=== PATIENT | female | born 1960 | race Caucasian/White ===

== ENCOUNTER 2017-11-24 15:32 | Emergency (ER) | payer OTHER ==
[2017-11-24 16:07] LABS: Absolute Lymphocytes (CBC) 2.7 K/uL (0.7-4.9); Absolute Monocytes 0.4 K/uL (0.1-1.3); Absolute Neutrophil 5.3 K/uL (1.8-8.0); Basophils % 0.8 % (0-1.3); Eosinophils % 1.7 % (0-4.4); Hematocrit 41.2 % (36.0-45.0); Lymphocytes % 31.2 % (15.3-44.8); MCV 87.8 fL (80-100); MPV 8.6 fL (7.6-11.3); Monocytes % 5.1 % (3.3-12.3)
[2017-11-24] MEDS ORDERED: BISACODYL 10 MG RECTAL SUPP ONE (16:17)
[2017-11-24 16:29] LABS: Albumin 3.8 g/dL (3.4-5.0); Bilirubin Direct 0.2 mg/dL (0-0.2); Bilirubin Total 0.9 mg/dL (0.2-1.0); Potassium 3.8 mmol/L (3.5-5.1); Protein, Total 7.9 g/dL (6.4-8.2)
--- NOTE | 2017-11-24 16:35 | RAD REPORT ---
EXAM DESCRIPTION: CT - Stone Protocol - 11/24/2017 4:22 pm CLINICAL HISTORY: Abdominal pain. Epigastric pain COMPARISON: None. TECHNIQUE: Computed axial tomography of the abdomen pelvis was obtained without oral or IV contrast. Lack of IV and oral contrast limits evaluation of solid organs, bowel, and vessels. Coronal reformat aung images were obtained and reviewed. All CT scans are performed using dose optimization technique as appropriate and may include automated exposure control or mA/KV adjustment according to patient size. FINDINGS: A renal calculus is not seen. An ureteral calculus is not noted. A bladder calculus is not present. The liver has a diminished attenuation consistent with fatty infiltration. Liver is borderline enlarg ed Spleen, pancreas and right adrenal gland appear grossly normal. 28 millimeter low-density lesion is p resent within the left adrenal gland probably representing an adenoma. There is no evidence of diverticulitis. The appendix appears normal A moderate amount of stool is present throughout the colon. A tiny umbilical hernia contains fat IMPRESSION: Negative for a genitourinary calculus Moderate amount of stool throughout the colon
[2017-11-24] MEDS ORDERED: MAGNE/ALUM HYDROXD 30 ML UCUP ONE (17:01)
--- NOTE | 2017-11-24 17:11 | EDPHYS ---
Physician Documentation [facility] Name: Estefany Beard Age: 57 yrs Sex: Female : 1960 Arrival Date: 11/24/2017 Time: 15:33 Bed 18 Private MD: Hero Jacobsen ED Physician Allen Rollins HPI: 11/24 16:14 This 57 yrs old Female presents to ER via Wheelchair with complaints of gs Constipation. 16:14 The patient presents with abdominal pain in the epigastric area. Onset: The gs symptoms/episode began/occurred acutely, after takink dulcolax pills. The symptoms do not radiate. Associated signs and symptoms: Pertinent positives: constipation, severe no bm 1 week. The symptoms are described as crampy. Severity of pain: At its worst the pain was moderate in the emergency department the pain is unchanged. The patient has experienced similar episodes in the past, several times. Historical: - Allergies: 15:37 No Known Allergies; aj1 - Home Meds: 15:37 losartan oral oral [Active]; Lexapro Oral [Active]; Citracal Oral [Active]; aj1 - PMHx: 15:37 Diabetes - NIDDM; Hypertension; aj1 - Immunization history:: Flu vaccine is not up to date. - Social history:: Smoking status: Patient/guardian denies using tobacco. - Ebola Screening: : Patient denies travel to an Ebola-affected area in the 21 days before illness onset. ROS: 16:14 All other systems are negative. gs Exam: 16:14 Head/Face: Normocephalic, atraumatic. Eyes: Pupils equal round and reactive to light, gs extra-ocular motions intact. Lids and lashes normal. Conjunctiva and sclera are non-icteric and not injected. Cornea within normal limits. Periorbital areas with no swelling, redness, or edema. ENT: Nares patent. No nasal discharge, no septal abnormalities noted. Tympanic membranes are normal and external auditory canals are clear. Oropharynx with no redness, swelling, or masses, exudates, or evidence of obstruction, uvula midline. Mucous membranes moist. Neck: Trachea midline, no thyromegaly or masses palpated, and no cervical lymphadenopathy. Supple, full range of motion without nuchal rigidity, or vertebral point tenderness. No Meningismus. Chest/axilla: Normal chest wall appearance and motion. Nontender with no deformity. No lesions are appreciated. 16:14 Cardiovascular: Regular rate and rhythm with a normal S1 and S2. No gallops, murmurs, or rubs. Normal PMI, no JVD. No pulse deficits. Respiratory: Lungs have equal breath sounds bilaterally, clear to auscultation and percussion. No rales, rhonchi or wheezes noted. No increased work of breathing, no retractions or nasal flaring. Back: No spinal tenderness. No costovertebral tenderness. Full range of motion. Skin: Warm, dry with normal turgor. Normal color with no rashes, no lesions, and no evidence of cellulitis. MS/ Extremity: Pulses equal, no cyanosis. Neurovascular intact. Full, normal range of motion. Neuro: Awake and alert, GCS 15, oriented to person, place, time, and situation. Cranial nerves II-XII grossly intact. Motor strength 5/5 in all extremities. Sensory grossly intact. Cerebellar exam normal. Normal gait. 16:14 Constitutional: The patient appears alert, awake. 16:14 Constitutional: The patient appears uncomfortable. 16:14 Abdomen/GI: Palpation: moderate abdominal tenderness, in the epigastric area. 16:14 ECG was reviewed by the Attending Physician. Vital Signs: 15:37 BP 195 / 90; Pulse 91; Resp 24; Temp 97.1; Pulse Ox 98% on R/A; Weight 90.72 kg (R); aj1 Height 5 ft. 1 in. (154.94 cm) (R); Pain 10/10; 16:02 BP 165 / 78; Pulse 82; Resp 20; Pulse Ox 95% ; sv 16:49 BP 185 / 82; Pulse 83; Resp 21; Pulse Ox 95% ; sv 15:37 Body Mass Index 37.79 (90.72 kg, 154.94 cm) aj1 MDM: 15:42 Patient medically screened. 16:14 Differential diagnosis: bowel obstruction, coronary artery disease, diverticulitis, gs gastritis, gastroesophageal reflux disease. Data reviewed: vital signs, nurses notes. 17:10 Response to treatment: the patient's symptoms have markedly improved after treatment, and as a result, I will discharge patient. 11/24 15:46 Order name: Basic Metabolic Panel; Complete Time: 16:34 11/24 15:46 Order name: CBC with Diff; Complete Time: 16:34 11/24 15:46 Order name: Hepatic Function; Complete Time: 16:34 11/24 15:46 Order name: Lipase; Complete Time: 16:34 11/24 15:46 Order name: CT Stone Protocol; Complete Time: 16:48 11/24 15:46 Order name: IV Saline Lock; Complete Time: 16:01 11/24 15:46 Order name: Labs collected and sent; Complete Time: 16:01 11/24 15:46 Order name: EKG; Complete Time: 15:47 11/24 15:46 Order name: EKG - Nurse/Tech; Complete Time: 16:15 gs EC:14 Rate is 79 beats/min. Rhythm is regular. VT interval is normal. QRS interval is normal. gs T waves are Normal. No ST changes noted. Clinical impression: NSR w/ Non-specific ST/T Changes. Interpreted by me. Administered Medications: 16:38 Drug: Dulcolax Suppository 10 mg Route: VT; sv 17:35 Follow up: Response: No adverse reaction sv 17:00 Drug: Maalox Suspension (200 mg-200 mg-20 mg/5 mL) 30 ml Route: PO; sv 17:35 Follow up: Response: No adverse reaction sv Disposition: 11/24/17 17:11 Discharged to Home. Impression: Generalized abdominal pain, Constipation. - Condition is Stable. - Discharge Instructions: Abdominal Pain, Adult, Constipation, Adult, [id number]. - Prescriptions for Miralax 17 gram/dose Oral - take 1 packet by ORAL route once daily dilute powder in 8 ounces of water or juice; 1 bottle. - Medication Reconciliation Form, Thank You Letter, Antibiotic Education, Prescription Opioid Use form. - Follow up: Private Physician; When: 2 - 3 days; Reason: Re-evaluation by your physician. Signatures: Dispatcher [employer] Delmy Greene RN RN ajConcha Velasquez RN RN sv Allen Rollins MD MD gs Corrections: (The following items were deleted from the chart) 17:35 17:11 11/24/2017 17:11 Discharged to Home. Impression: Generalized abdominal pain; sv Constipation. Condition is Stable. Forms are Medication Reconciliation Form, Thank You Letter, Antibiotic Education, Prescription Opioid Use. Follow up: Private Physician; When: 2 - 3 days; Reason: Re-evaluation by your physician. gs
--- NOTE | 2017-11-24 17:11 | ER ---
Nurse's Notes [facility] Name: Estefany Beard Age: 57 yrs Sex: Female : 1960 Arrival Date: 11/24/2017 Time: 15:33 Bed 18 Private MD: Hero Jacobsen Diagnosis: Generalized abdominal pain;Constipation Presentation: 11/24 15:35 Presenting complaint: Patient states: Severe epigastric for the past 15 minutes. aj1 Patient reports that she is constipated, and has not had a bowel movement for the past week. Transition of care: patient was not received from another setting of care. Onset of symptoms was November 24, 2017. Risk Assessment: Do you want to hurt yourself or someone else? Patient reports no desire to harm self or others. Initial Sepsis Screen: Does the patient meet any 2 criteria? No. Patient's initial sepsis screen is negative. Does the patient have a suspected source of infection? No. Patient's initial sepsis screen is negative. Care prior to arrival: None. 15:35 Method Of Arrival: Wheelchair aj1 15:35 Acuity: JACE 3 aj1 Triage Assessment: 15:37 General: Appears uncomfortable, Behavior is anxious, crying, restless. Pain: Complains aj1 of pain in epigastric area Pain currently is 10 out of 10 on a pain scale. Neuro: Level of Consciousness is awake, alert, obeys commands. Cardiovascular: Patient's skin is warm and dry. GI: Reports upper abdominal pain. Historical: - Allergies: 15:37 No Known Allergies; aj1 - Home Meds: 15:37 losartan oral oral [Active]; Lexapro Oral [Active]; Citracal Oral [Active]; aj1 - PMHx: 15:37 Diabetes - NIDDM; Hypertension; aj1 - Immunization history:: Flu vaccine is not up to date. - Social history:: Smoking status: Patient/guardian denies using tobacco. - Ebola Screening: : Patient denies travel to an Ebola-affected area in the 21 days before illness onset. Screenin:55 Abuse screen: Denies threats or abuse. Denies injuries from another. Nutritional sv screening: No deficits noted. Tuberculosis screening: No symptoms or risk factors identified. Fall Risk None identified. Assessment: 15:55 General: Appears in no apparent distress. uncomfortable, well developed, Behavior is sv calm, cooperative, appropriate for age. Pain: Complains of pain in abdomen Pain currently is 10 out of 10 on a pain scale. Is continuous. Neuro: Level of Consciousness is awake, alert, obeys commands, Oriented to person, place, time, situation, Moves all extremities. Full function Gait is steady. Respiratory: Respiratory effort is even, unlabored, Respiratory pattern is regular, symmetrical. GI: Abdomen is tender to palpation X 4 quads. Reports constipation, since 1 week. Derm: Skin is pink, warm \T\ dry. 16:38 Reassessment: Patient appears in no apparent distress at this time. No changes from sv previously documented assessment. Patient and/or family updated on plan of care and expected duration. Pain level reassessed. Patient is alert, oriented x 3, equal unlabored respirations, skin warm/dry/pink. 17:31 Reassessment: Patient appears in no apparent distress at this time. No changes from sv previously documented assessment. Patient and/or family updated on plan of care and expected duration. Pain level reassessed. Patient is alert, oriented x 3, equal unlabored respirations, skin warm/dry/pink. Vital Signs: 15:37 BP 195 / 90; Pulse 91; Resp 24; Temp 97.1; Pulse Ox 98% on R/A; Weight 90.72 kg (R); aj1 Height 5 ft. 1 in. (154.94 cm) (R); Pain 10/10; 16:02 BP 165 / 78; Pulse 82; Resp 20; Pulse Ox 95% ; sv 16:49 BP 185 / 82; Pulse 83; Resp 21; Pulse Ox 95% ; sv 15:37 Body Mass Index 37.79 (90.72 kg, 154.94 cm) aj1 ED Course: 13:55 Patient has correct armband on for positive identification. Placed in gown. Bed in low sv position. Call light in reach. Adult w/ patient. Pulse ox on. NIBP on. Door closed. Warm blanket given. Head of bed elevated. 15:33 Patient arrived in ED. sb2 15:33 Hero Jacobsen MD is Private Physician. sb2 15:36 Triage completed. aj1 15:37 Arm band placed on Patient placed in an exam room. aj1 15:39 Allen Rollins MD is Attending Physician. gs 15:40 Concha Thomas, RN is Primary Nurse. sv 15:55 Initial lab(s) drawn, by me, sent to lab. Inserted saline lock: 20 gauge in left sv antecubital area, using aseptic technique. Blood collected. Flushed left antecubital with 5 ml normal saline. 16:12 EKG done, by power technician. reviewed by Allen Rollins MD. sm3 16:13 Patient moved to ME via wheelchair. hi 16:22 CT completed. Patient tolerated procedure well. Patient moved back from ME. nj 16:22 CT Stone Protocol In Process Unspecified. EDMS 17:31 No provider procedures requiring assistance completed. IV discontinued, intact, sv bleeding controlled, No redness/swelling at site. Pressure dressing applied. Administered Medications: 16:38 Drug: Dulcolax Suppository 10 mg Route: MA; sv 17:35 Follow up: Response: No adverse reaction sv 17:00 Drug: Maalox Suspension (200 mg-200 mg-20 mg/5 mL) 30 ml Route: PO; sv 17:35 Follow up: Response: No adverse reaction sv Outcome: 17:11 Discharge ordered by . 17:31 Discharged to home ambulatory, with family. sv 17:31 Condition: stable 17:31 Discharge instructions given to patient, Instructed on discharge instructions, follow up and referral plans. medication usage, Demonstrated understanding of instructions, follow-up care, medications, Prescriptions given X 1. 17:35 Patient left the ED. sv Signatures: Dispatcher [employer] EDCT Delmy Sargent RN RN aj1 Concha Thomas, Shalom Og RN, Gregory, MD MD Estefany Goldstein Yvrose Posey sm3
--- NOTE | 2017-11-24 17:37 | EKG ---
Test Date: 2017-11-24 Test Time: 16:09:15 Processing Analyst: YVETTE MEASUREMENT RESULTS: Intervals: Rate: 79 HI: 184 QRSD: 88 QT: 380 QTc: 435 [place]: P: 32 HI: 184 QRS: 9 T: 11 INTERPRETIVE STATEMENTS: Normal sinus rhythm Normal ECG Compared to ECG 05/15/2008 16:48:17 no significant change from previous ECG Electronically Signed On 11-24-17 17:36:23 CDT by Tej Vogt
== END 2017-11-24 17:35 | disposition home or self-care (01) ==
LOC: ER 15:32
DX: K59.00 Constipation, unspecified (principal); I10 Essential (primary) hypertension; E11.9 Type 2 diabetes mellitus without complications
CPT/HCPCS: 36415; 74176; 76377; 80048; 80076; 83690; 85025; 93005

== ENCOUNTER 2021-06-07 21:59 | Emergency (ER) | payer OTHER ==
[2021-06-07] MEDS ORDERED: METHYLPREDNISOLONE 125 MG INJ ONE (23:31)
[2021-06-07] MEDS ORDERED: METHOCARBAMOL 1,000 MG/10 ML VIAL IV ONE (23:32)
[2021-06-07] MEDS ORDERED: KETOROLAC 30 MG/ML INJ ONE (23:32)
[2021-06-07] MEDS ORDERED: HYDROMORPHONE HCL 2 MG/ML inj ONE (23:32)
[2021-06-07] MEDS ORDERED: NA CHLORIDE 0.9% 200 ML IV ONE (23:33)
[2021-06-07] MEDS ORDERED: ONDANSETRON 4 MG/2 ML VIAL ONE (23:33)
[2021-06-08 00:35] LABS: Absolute Lymphocytes (CBC) 2.7 K/uL (0.7-4.9); Hematocrit 38.1 % (36.0-45.0); Lymphocytes % 22.5 % (15.3-44.8); MPV 7.8 fL (7.6-11.3); RBC Red Blood Cell Count 4.53 M/uL (3.86-4.86)
[2021-06-08 01:00] LABS: Albumin 3.3 g/dL (3.4-5.0); Bilirubin Total 0.7 mg/dL (0.2-1.0)
[2021-06-08 01:01] LABS: Potassium 4.1 mmol/L (3.5-5.1)
--- NOTE | 2021-06-08 03:45 | ER ---
Nurse's Notes [facility] Name: Estefany Beard Age: 60 yrs Sex: Female : 1960 Arrival Date: 06/07/2021 Time: 22:13 Bed 7 Private MD: Diagnosis: Pain in right hip Presentation: 06/07 23:49 Chief complaint: Patient states: Right hip pain x 3 weeks that radiates towards back. al4 patient has seen a physician prior and has plans to see a specialist. pain got worse tonight. Coronavirus screen: Vaccine status: Patient reports receiving the 2nd dose of the covid vaccine. Ebola Screen: No symptoms or risks identified at this time. Initial Sepsis Screen: Does the patient meet any 2 criteria? No. Patient's initial sepsis screen is negative. Does the patient have a suspected source of infection? No. Patient's initial sepsis screen is negative. Risk Assessment: Do you want to hurt yourself or someone else? Patient reports no desire to harm self or others. Onset of symptoms was June 08, 2021. 23:49 Method Of Arrival: EMS al4 23:49 Acuity: JACE 3 al4 Historical: - Allergies: 06/08 02:00 No Known Allergies; al4 - Immunization history:: Adult Immunizations up to date, Client reports receiving the 2nd dose of the Covid vaccine, Flu vaccine is up to date. - Social history:: Smoking status: Patient denies any tobacco usage or history of. Screenin:26 Abuse screen: Denies threats or abuse. Nutritional screening: No deficits noted. al4 Tuberculosis screening: No symptoms or risk factors identified. Fall Risk No fall in past 12 months (0 pts). IV access (20 points). Ambulatory Aid- None/Bed Rest/Nurse Assist (0 pts). Gait- Normal/Bed Rest/Wheelchair (0 pts) Mental Status- Oriented to own ability (0 pts). Total Gudino Fall Scale indicates No Risk (0-24 pts). Assessment: 06/07 23:49 General: Appears uncomfortable, Behavior is calm, cooperative. Pain: Complains of pain al4 in Right Hip Pain currently is 10 out of 10 on a pain scale. Neuro: Level of Consciousness is awake, alert, obeys commands, Oriented to person, place, time, situation. Cardiovascular: Capillary refill < 3 seconds Patient's skin is warm and dry. Pulses are 2+ in right dorsalis pedis artery and left dorsalis pedis artery. Respiratory: Airway is patent Respiratory effort is unlabored, Respiratory pattern is regular. Musculoskeletal: Reports numbness in right martinez since 1 week. 23:57 Reassessment: clarified with MD Diane about giving methocarbamol and Dilaudid at the al4 same time. Compatibility is unknown. desulfurizer hand looked up drug compatibility as well. Will not run together. 06/08 01:07 Reassessment: Patient appears in no apparent distress at this time. Patient states al4 symptoms have not improved. 01:40 Reassessment: Patient appears in no apparent distress at this time. Patient states al4 symptoms have improved. patient offered more pain medication by . patient responded "I am okay right now". 02:05 Pain: Pain currently is 4 out of 10 on a pain scale. al4 02:05 Reassessment: Patient is alert, oriented x 3, equal unlabored respirations, skin al4 warm/dry/pink. 04:01 Reassessment: Patient appears in no apparent distress at this time. Patient is alert, al4 oriented x 3, equal unlabored respirations, skin warm/dry/pink. 04:04 Reassessment: discharge instructions, prescriptions, and IV removed by DORA Carbajal. al4 Vital Signs: 06/07 23:30 BP 182 / 76; Pulse 82; Resp 17 S; Pulse Ox 97% on R/A; al4 06/08 00:00 BP 169 / 73; Pulse 83; Resp 17; Pulse Ox 96% ; Pain 10/10; al4 01:30 BP 163 / 78; Pulse 83; Resp 18; Pulse Ox 97% ; Pain 8/10; al4 01:45 BP 161 / 79; Pulse 85; Resp 18; Pulse Ox 96% on R/A; Pain 7/10; al4 02:45 BP 153 / 71; Pulse 86; Resp 18; Pulse Ox 96% ; al4 03:45 BP 156 / 69; Pulse 86; Resp 17 S; Pulse Ox 97% on R/A; al4 ED Course: 06/07 22:13 Patient arrived in ED. vc1 22:13 Tom Diane MD is Attending Physician. kdr 23:17 Alex Qureshi is Primary Nurse. al4 23:55 Maintain EMS IV. Dressing intact. Good blood return noted. Site clean \\T\\ dry. Gauge \\T\\ al 4 site: 20G L Wrist. 06/08 00:15 Inserted saline lock: 20 gauge in right forearm, using aseptic technique. Blood sm5 collected. 00:24 CBC with Diff Sent. al4 00:24 Comprehensive Metabolic Panel Sent. al4 00:26 Bed in low position. Call light in reach. Side rails up X2. al4 00:26 Arm band placed on. al4 00:51 Hip Right W Con In Process Unspecified. EDMS 02:00 Triage completed. al4 04:03 No provider procedures requiring assistance completed. IV discontinued, intact, al4 bleeding controlled, No redness/swelling at site. Pressure dressing applied, by DORA Carbajal. Administered Medications: 06/07 22:52 CANCELLED (Physician Discretion): Compazine (prochlorperazine) 5 mg IVP once vc1 23:34 Drug: Ketorolac 15 mg Route: IVP; Site: left wrist; al4 06/08 00:30 Follow up: Response: No adverse reaction al4 06/07 23:36 Drug: SOLU-Medrol (methylPrednisoLONE) 125 mg Route: IVP; Site: left wrist; al4 06/08 00:30 Follow up: Response: No adverse reaction al4 06/07 23:38 Drug: Zofran (Ondansetron) 4 mg Route: IVP; Site: left wrist; al4 06/08 00:30 Follow up: Response: No adverse reaction al4 06/07 23:44 Drug: Robaxin (methocarbamol) 1 grams Route: IVPB; Infused Over: 1 hrs; Site: left al4 wrist; 06/08 01:06 Follow up: Response: No adverse reaction; IV Status: Completed infusion; IV Intake: al4 100ml 01:03 Drug: Dilaudid (HYDROmorphone) 2 mg Route: IVP; Site: right forearm; al4 02:04 Follow up: Response: No adverse reaction; Marked relief of symptoms; Pain is decreased; al4 RASS: Alert and Calm (0) Intake: 01:06 IV: 100ml; Total: 100ml. al4 Outcome: 03:45 Discharge ordered by . kdr 04:03 Discharged to home via wheelchair, with family. al4 04:03 Condition: stable 04:03 Discharge instructions given to patient, family, Instructed on discharge instructions, follow up and referral plans. medication usage, Demonstrated understanding of instructions, follow-up care, medications. 04:04 Patient left the ED. al4 Signatures: Dispatcher [employer] EDMS Tom Diane MD MD kdr Ledbetter, Alexis al4 Li Swan RN RN sm5 Libby Bowles RN RN vc1 Corrections: (The following items were deleted from the chart) 00:26 06/07 23:49 Cardiovascular: Capillary refill < 3 seconds Patient's skin is warm and al4 dry. al4 06/08 00:26 06/07 23:49 Musculoskeletal: Circulation, motion, and sensation intact. al4 al4
--- NOTE | 2021-06-08 03:45 | EDPHYS ---
Physician Documentation [facility] Name: Estefany Beard Age: 60 yrs Sex: Female : 1960 Arrival Date: 06/07/2021 Time: 22:13 Bed 7 Private MD: ED Physician Tom Diane HPI: 06/07 23:55 This 60 yrs old Female presents to ER via Unassigned with complaints of Right hip pain. kdr 23:55 The patient or guardian reports decreased range of motion, pain. that occurred at home, kdr sustained from lifting or pulling, Patient was in the shower when she lifted her leg and had acute onset of pain in the, There is no obvious deformity, The patient is able to ambulate with assistance. The patient is able to bear partial body weight. There is no radiation of the patient's discomfort. The complaints affect the right hip and right leg. Onset: The symptoms/episode began/occurred suddenly, just prior to arrival. Modifying factors: The symptoms are alleviated by nothing, the symptoms are aggravated by nothing. Associated signs and symptoms: Loss of consciousness: the patient experienced no loss of consciousness. Severity of symptoms: At their worst the symptoms were moderate, severe, incapacitating, just prior to arrival, in the emergency department the symptoms are unchanged. The patient has experienced similar episodes in the past, a few times. The patient has not recently seen a physician. Historical: - Allergies: 06/08 02:00 No Known Allergies; al4 - Immunization history:: Adult Immunizations up to date, Client reports receiving the 2nd dose of the Covid vaccine, Flu vaccine is up to date. - Social history:: Smoking status: Patient denies any tobacco usage or history of. ROS: 06/07 23:55 Constitutional: Negative for fever, chills, and weight loss, Eyes: Negative for injury, kdr pain, redness, and discharge, Neck: Negative for injury, pain, and swelling, Cardiovascular: Negative for chest pain, palpitations, and edema, Respiratory: Negative for shortness of breath, cough, wheezing, and pleuritic chest pain, Abdomen/GI: Negative for abdominal pain, nausea, vomiting, diarrhea, and constipation, Back: Negative for injury and pain, : Negative for injury, bleeding, discharge, and swelling, Skin: Negative for injury, rash, and discoloration, Neuro: Negative for headache, weakness, numbness, tingling, and seizure activity. Psych: Negative for depression, anxiety, suicide ideation, homicidal ideation, and hallucinations, Allergy/Immunology: Negative for hives, rash, and allergies, Endocrine: Negative for neck swelling, polydipsia, polyuria, polyphagia, and marked weight changes, Hematologic/Lymphatic: Negative for swollen nodes, abnormal bleeding, and unusual bruising. MS/extremity: Positive for decreased range of motion, pain, tenderness, of the right hip. Exam: 23:55 Constitutional: This is a well developed, well nourished patient who is awake, alert, kdr and in mild distress. Head/Face: Normocephalic, atraumatic. Eyes: Pupils equal round and reactive to light, extra-ocular motions intact. Lids and lashes normal. Conjunctiva and sclera are non-icteric and not injected. Cornea within normal limits. Periorbital areas with no swelling, redness, or edema. Neck: Trachea midline, no thyromegaly or masses palpated, and no cervical lymphadenopathy. Supple, full range of motion without nuchal rigidity, or vertebral point tenderness. No Meningismus. Chest/axilla: Normal chest wall appearance and motion. Nontender with no deformity. No lesions are appreciated. Cardiovascular: Regular rate and rhythm with a normal S1 and S2. No gallops, murmurs, or rubs. Normal PMI, no JVD. No pulse deficits. Respiratory: Lungs have equal breath sounds bilaterally, clear to auscultation and percussion. No rales, rhonchi or wheezes noted. No increased work of breathing, no retractions or nasal flaring. Abdomen/GI: Soft, non-tender, with normal bowel sounds. No distension or tympany. No guarding or rebound. No evidence of tenderness throughout. Back: No spinal tenderness. No costovertebral tenderness. Full range of motion. Skin: Warm, dry with normal turgor. Normal color with no rashes, no lesions, and no evidence of cellulitis. Neuro: Awake and alert, GCS 15, oriented to person, place, time, and situation. Cranial nerves II-XII grossly intact. Motor strength 5/5 in all extremities. Sensory grossly intact. Cerebellar exam normal. Normal gait. Psych: Awake, alert, with orientation to person, place and time. Behavior, mood, and affect are within normal limits. 23:55 Musculoskeletal/extremity: Extremities: grossly normal except: noted in the right hip: pain. Vital Signs: 23:30 BP 182 / 76; Pulse 82; Resp 17 S; Pulse Ox 97% on R/A; al4 06/08 00:00 BP 169 / 73; Pulse 83; Resp 17; Pulse Ox 96% ; Pain 10/10; al4 01:30 BP 163 / 78; Pulse 83; Resp 18; Pulse Ox 97% ; Pain 8/10; al4 01:45 BP 161 / 79; Pulse 85; Resp 18; Pulse Ox 96% on R/A; Pain 7/10; al4 02:45 BP 153 / 71; Pulse 86; Resp 18; Pulse Ox 96% ; al4 03:45 BP 156 / 69; Pulse 86; Resp 17 S; Pulse Ox 97% on R/A; al4 MDM: 06/07 23:55 Data reviewed: vital signs, nurses notes, lab test result(s), radiologic studies. kdr Counseling: I had a detailed discussion with the patient and/or guardian regarding: the historical points, exam findings, and any diagnostic results supporting the discharge/admit diagnosis, lab results, radiology results. 06/08 03:45 Patient medically screened. kdr 06/07 22:50 Order name: CBC with Diff; Complete Time: 00:57 kdr 06/07 22:51 Order name: Comprehensive Metabolic Panel; Complete Time: 01:51 kdr 06/07 22:53 Order name: Hip Right W Con EDMS 06/08 00:59 Order name: CREATININE WHOLE BLOOD; Complete Time: 01:51 EDMS Administered Medications: 06/07 22:52 CANCELLED (Physician Discretion): Compazine (prochlorperazine) 5 mg IVP once vc1 23:34 Drug: Ketorolac 15 mg Route: IVP; Site: left wrist; al4 06/08 00:30 Follow up: Response: No adverse reaction al4 06/07 23:36 Drug: SOLU-Medrol (methylPrednisoLONE) 125 mg Route: IVP; Site: left wrist; al4 06/08 00:30 Follow up: Response: No adverse reaction al4 06/07 23:38 Drug: Zofran (Ondansetron) 4 mg Route: IVP; Site: left wrist; al4 06/08 00:30 Follow up: Response: No adverse reaction al4 06/07 23:44 Drug: Robaxin (methocarbamol) 1 grams Route: IVPB; Infused Over: 1 hrs; Site: left al4 wrist; 06/08 01:06 Follow up: Response: No adverse reaction; IV Status: Completed infusion; IV Intake: al4 100ml 01:03 Drug: Dilaudid (HYDROmorphone) 2 mg Route: IVP; Site: right forearm; al4 02:04 Follow up: Response: No adverse reaction; Marked relief of symptoms; Pain is decreased; al4 RASS: Alert and Calm (0) Disposition Summary: 06/08/21 03:45 Discharge Ordered Location: Home kdr Problem: an acute exacerbation kdr Symptoms: have improved kdr Condition: Stable kdr Diagnosis - Pain in right hip kdr Followup: kdr - With: Private Physician - When: 2 - 3 days - Reason: If symptoms return, Further diagnostic work-up, Recheck today's complaints, Continuance of care, Re-evaluation by your physician Discharge Instructions: - Discharge Summary Sheet kdr - Joint Pain kdr - Musculoskeletal Pain kdr - Hip Pain kdr Forms: - Medication Reconciliation Form kdr - Thank You Letter kdr - Prescription Opioid Use kdr Prescriptions: - Ibuprofen 600 mg Oral Tablet - take 1 tablet by ORAL route every 6 hours As needed take with food; 30 tablet; kdr Refills: 0, Product Selection Permitted - Zofran 4 mg Oral Tablet - take 1 tablet by ORAL route every 4-6 hours As needed; 20 tablet; Refills: 0, kdr Product Selection Permitted - Tylenol-Codeine #3 300 mg-30 mg Oral - take 2 tablet by ORAL route every 4-6 hours As needed; 20 tablet; Refills: 0, kdr Product Selection Permitted - Medrol (Laith) 4 mg Oral Tablets, Dose Pack - take 1 tablet by ORAL route as directed - follow package instructions; 1 kdr packet; Refills: 0, Product Selection Permitted Signatures: Dispatcher [employer] Tom Hyde MD MD kdr Alex Qureshi al4 Carrol Preito PA PA sb3 Libby Bowles RN vc1 Corrections: (The following items were deleted from the chart) 06/07 22:52 22:50 Compazine (prochlorperazine) 5 mg IVP once ordered. kdr vc1
[2021-06-08 04:21] VITALS: BP 156/69; O2SAT 97
--- NOTE | 2021-06-09 08:55 | RAD REPORT ---
EXAM DESCRIPTION: CT - Hip Right W Con - 06/08/2021 6:52 am CLINICAL HISTORY: The patient is 60 years old and is Female; right hip pain TECHNIQUE: Axial computed tomography images of the right hip with intravenous contrast. Sagittal a nd coronal reformatted images were created and reviewed. This CT exam was performed using one or mo re of the following dose reduction techniques: automated exposure control, adjustment of the mA and /or kV according to patient size, and/or use of iterative reconstruction technique. COMPARISON: No relevant prior studies available. FINDINGS: BONES/JOINTS: Heterotopic bone formation along the right greater trochanter is noted. Th e femoral head is well located. The right SI joint and pubic symphysis are intact without evidence of diastases. The bone mineralization and contour is normal. There is no evidence of fracture of the vi sualized bones of the right hip. There is no dislocation. SOFT TISSUES: Unremarkable. No abnormal contrast enhancement. IMPRESSION: No acute findings in the right hip. Electronically signed by: Juliana Whitney MD 06/08/2021 1:33 AM CDT Due to temporary technical issues with the PACS/Fluency reporting system, reports are being signed by the in house radiologists without review as a courtesy to insure prompt reporting. The interpreting radiologist is fully responsible for the content of the report.
== END 2021-06-08 04:04 | disposition home or self-care (01) ==
LOC: ER 21:59
DX: M25.551 Pain in right hip (principal)
CPT/HCPCS: 85025; 36415; 82565; 80053; 73701; 99284; Q9967; J1170; J2930; J2405; J2800

== ENCOUNTER 2021-07-17 09:35 | Emergency (ER) | payer OTHER ==
--- OUTSIDE RECORDS SUMMARY | 2021-07-17 09:39 | XMS REPORT | Continuity of Care Document ---
:1960 Author Organization [facility] t Address [address] [place] [address] Care Team Providers Name Role Phone Jose Yao Attending Clinician Unavailable Fely Montes De Oca Attending Clinician Unavailable Ibrahima Attending Clinician Unavailable Jose Yao Admitting Clinician Unavailable Fely Montes De Oca Admitting Clinician Unavailable Ibrahima Admitting Clinician Unavailable Payers Payer Name Policy Type Policy Number Effective Date Expiration Date Yael PHILLIPS (POS) [id number] 2002 00:00:00 Problems This patient has no known problems. Allergies, Adverse Reactions, Alerts Allergy Allergy Status Severity Reaction(s) Onset Inactive Treating Comm ents Source Name Type Date Date Clinician No Known DA Active U [facility] 18 Clear Allergie 00:00: Zuniga s 00 [facility] latex DA Active MA RASH [facility] 5-18 Clear 00:00: Zuniga 00 [facility] No Known DA Active [facility] [place] All[facility]ie 00:[facility]: [facility] DA Active [facility]- [place] 00:00: [facility]ope [facility] Medications This patient has no known medications. Procedures This patient has no known procedures. Encounters Start End Encounter Admission Attending Care Care Encounter Source Date/Time Date/Time Type Type Clinicians Facility Department ID 2021-07-03 [id number] 11:19:00 [facility] [place] [facility] 2021-06-09 Outpatient Melody Montes De Oca HCATO [id number] [facility] 13:40:31 38 [place] [facility] 2021-07-16 2021-07-16 Outpatient Reji AOYVETTE AOSM [id number] Francisca 02:14:00 02:14:00 _Nitesh [id number] [facility] 2021-07-10 2021-07-11 Outpatient KRISTIN Whittaker OBSE [id number] [facility] 08:31:00 14:01:00 [facility] [place] [facility] 2021-07-10 2021-07-11 Outpatient KRISTIN Whittaker OBSE Y00 [id number] [facility] 08:31:00 14:01:00 Howard 74 [place] [facility] 2021-07-02 2021-07-02 Outpatient VANNA YaoCL LABO G00 [id number] [facility] 15:39:00 15:39:00 Howard 19 [facility] 2021-06-25 2021-06-25 Outpatient KRISTIN Whittaker RADI Y00 [id number] [facility] 15:52:00 15:52:00 [facility] 76 [place] [facility] 2021-06-09 2021-06-09 Outpatient Melody Goldstein HCATO RADI [id number] [facility] 07:26:00 07:26:00 [place] [facility] Results Test Description Test Time Test Comments Results Result [facility] e Comments - XR SPINE 1 V 2021-07-11 SPEC LEVEL 07:33:00 [facility] : 1960 Sex: F Patient Name: KARLO NORRIS Unit No: [id number] EXAMS: CPT CODE: [id number] XR SPINE 1 V SPEC LEVEL 08854 INTRAOPERATIVE LATERAL LUMBAR SPINE Film 1. A marker is posterior to L2. Film 2. Surgical instruments are posterior to L3 and L4. Film 3. A surgical instrument is posterior to L3. at 0733 Reported and signed by: Turner Stoner MD CC: Rafael Yao M.D. Technologist: FRANKI ROMERO (RT.R) Transcribed D/ (0733) [facility] NAME: KARLO NORRIS[address] PHYS: Howard Downs MD : 1960 AGE: 60 SEX: F [place] [address] LOC: Y.318 A PHONE #: [phone] EXAM DATE: 07/10/2021 STATUS: REG [facility] FAX #: [phone] RAD #: D/C DT PAGE 1 Signed Report Patient Name: KARLO NORRIS Unit No: [id number] EXAMS: CPT CODE: [id number] XR SPINE 1 V SPEC LEVEL [id number] <Continued> Orig Print D/T: S: 07/11/2021 (0736) [facility] NAME: KARLO NORRIS [address] PHYS: Howard Downs MD : 1960 AGE: 60 SEX: F [place] [address] LOC: Y.318 A PHONE #: [phone] EXAM DATE: 07/10/2021 STATUS: REG [facility] FAX #: [phone] RAD #: D/C DT PAGE 2 Signed Report BASIC METABOLIC PANEL 2021-07-11 06:49:00 Test Item Value Reference Range Interpretation Comme nts SODIUM (test code = NA) 136 mmol/L 136-145 N POTASSIUM (test code = K) 4.7 mmol/L 3.5-5.1 N CHLORIDE (test code = CL) 100.0 mmol/L 98-107 N CARBON DIOXIDE (test code = 27.6 mmol/L 21-32 N CO2) GLUCOSE (test code = GLU) 160 mg/dL 70-110 H BLOOD UREA NITROGEN (test code 14 mg/dL 7-18 N = BUN) GLOMERULAR FILTRATION RATE 79.1 >60 U nit of measure: (test code = GFR) mL/min/1.7 3 [id number] Range:Healthy A dults >90 mL/min/1.73 m2 For Chronic Kidney Disease: Stage II Mi ld Decrease in GFR 60-9 0 Stage III Moderate Decrease in GFR 30-59 Stage IV Severe Decrease in GFR 15-29 Stage V Kidney Failure <15 CREATININE (test code = CREAT) 0.75 mg/dL 0.55-1.30 N CALCIUM (test code = CA) 8.4 mg/dL 8.2-10.1 N [id number] 06:04:00 Test Item Value Reference Range Interpretation Comments GLUBED (test code = GLUBED) 161 mg/dL 60-125 H [id number] 21:14:00 Test Item Value Reference Range Interpretation Comments GLUBED (test code = GLUBED) 213 mg/dL 60-125 H [id number] 10:29:00 Test Item Value Reference Range Interpretation Comments GLUBED (test code = GLUBED) 122 mg/dL 60-125 N BASIC METABOLIC [id number] 12:57:00 Test Item Value Reference Range Interpretation Comments SODIUM (test code = 134 mmol/L 136-145 L NA) POTASSIUM (test code = 4.1 mmol/L 3.5-5.1 N K) CHLORIDE (test code = 95.0 mmol/L 98-107 L CL) CARBON DIOXIDE (test 27.8 mmol/L 21-32 N code = CO2) GLUCOSE (test code = 142 mg/dL 70-110 H GLU) BLOOD UREA NITROGEN 24 mg/dL 7-18 H (test code = BUN) GLOMERULAR FILTRATION 62.5 >60 Unit o f measure: RATE (test code = GFR) mL/mi n/1.73 [id number] Range:Healthy A dults >90 mL/min/1.73 m2 For Chronic Kidney Disease: St age II Mild Dec rease in GFR 6 0-90 Stage III Moderate Decrea se in GFR 30-59 Stage IV Se alvarez Decrease in GFR 15-29 Stage V Kidney Failur e <15 CREATININE (test code 0.92 mg/dL 0.55-1.30 N = CREAT) CALCIUM (test code = 9.3 mg/dL 8.2-10.1 N CA) URINALYSIS [id number] 12:48:00 Test Item Value Reference Range Interpretation Comments UA COLOR (test code = YELLOW YELLOW COLU) UA APPEARANCE (test CLEAR CLEAR code = APPU) UA GLUCOSE DIPSTICK 1+ NEGATIVE A (test code = DGLUU) UA BILIRUBIN DIPSTICK NEGATIVE NEGATIVE (test code = BILU) UA KETONE DIPSTICK NEGATIVE mg/dL NEG (test code = KETU) UA SPECIFIC GRAVITY 1.015 1.003-1.035 (test code = SGU) UA BLOOD DIPSTICK NEGATIVE NEGATIVE (test code = ANDRE) UA PH DIPSTICK (test 7.0 See_Comment [Autom ated code = CHRIS) message] The system which generated this result transmit aung reference range : 6.5. The refere nce range was not u sed to interpret th is result as normal/abnormal . UA PROTEIN DIPSTICK NEGATIVE mg/dL NEG (test code = PROU) UA UROBILINIOGEN 0.2 mg/dL NORM DIPSTICK (test code = URO) UA NITRITE DIPSTICK NEGATIVE NEG (test code = SYMONE) UA LEUKOCYTE ESTERASE NEGATIVE NEGATIVE DIPSTICK (test code = LEUU) UA WBC (test code = 2-5 /HPF 0-2 WBCU) UA RBC (test code = 0-2 /HPF 0-2 RBCU) UA EPITHELIAL CELLS 2-5 /HPF 0-2 (test code = EPIU) UA BACTERIA (test FEW /HPF NONE code = BACU) CBC W/AUTO [id number] 12:35:00 Test Item Value Reference Range Interpretation Comments WHITE BLOOD CELL (test code = WBC) 11.6 K/mm3 5.8-11.0 H RED BLOOD CELL (test code = RBC) 5.05 M/mm3 4.2-5.4 N HEMOGLOBIN (test code = HGB) 14.2 g/dL 12-16 N HEMATOCRIT (test code = HCT) 42.4 % 37-47 N MEAN CELL VOLUME (test code = MCV) 84 fL 80-98 N MEAN CELL HGB (test code = MCH) 28.1 pg 27-34 N MEAN CELL HGB CONCENTRATION (test 33.5 g/dL 30.8-34.1 N code = MCHC) RED CELL DISTRIBUTION WIDTH (test 14.0 % 11-16 N code = RDW) PLT (test code = PLT) 329 K/mm3 130-400 N MEAN PLATELET VOLUME (test code = 8.6 fL 8.9-12.1 L MPV) NEUTROPHIL % (test code = NT%) 73.4 % 45-70 H LYMPHOCYTE % (test code = LY%) 20.1 % 20-40 N MONOCYTE % (test code = MO%) 4.6 % 3-10 N EOSINOPHIL % (test code = EO%) 0.7 % 1-5 L BASOPHIL % (test code = BA%) 0.3 % 0.0-1.1 N NEUTROPHIL # (test code = NT#) 8.51 K/mm3 2.00-7.50 H LYMPHOCYTE # (test code = LY#) 2.32 K/mm3 1.50-4.00 N MONOCYTE # (test code = MO#) 0.53 K/mm3 0.2-0.8 N EOSINOPHIL # (test code = EO#) 0.08 K/mm3 0.04-0.4 N BASOPHIL # (test code = BA#) 0.03 K/mm3 0.02-0.10 N MANUAL DIFF REQUIRED (test code = NO MANUAL DIFF MDIFF) NUCLEATED RED BLOOD CELL (test 0 % 0-0 N code = NRBC) - MRI L-SPINE W/O [id number] 09:11:[facility] 1960 Sex: F Patient Name: KARLO NORRIS Unit No: [id number] EXAMS: CPT CODE: [id number] MRI L-SPINE W/O CONT 32162 TECHNIQUE: Multiplanar, multisequence MRI examination performed of the lumbar spine without intravenous contrast material. COMPARISON: MR dated 11/23/2014 FINDINGS: Five lumbar type vertebra are assumed. Alignment: Within normal limits Bone Lesion: A 5 mm hypointense lesion within the L2 ve rtebral body is noted to the right of midline extending to the inferior endplate, likelya Schmorl's node. Fracture: None present. Paraspinal Soft Tissues: Unremarkable. Conus Medullaris: Termination at L1 level. Morphology is normal. L1/2: Disc desiccation without significant bulge or herniation. No foraminal or central canal stenosis. L2/3: A disc bulge is present with a large right paracentral disc extrusion measuring 7 mm in AP dimension with 20 mm of caudal migration. The extrusion severelynarrows the right lateral recess, impinging the right L3 nerve. Bilateral facet hypertrophy and ligamentum flavum thickening. There is moderate central canal stenosis as well as moderate to severe left, mild right foraminal stenosis. L3/4: Laminectomy changes are present. A disc bulge is present with a large left paracentral disc extrusion measuring 6 mm in AP dimension, severely narrowing the left lateral recess and likely impinging the left L4 nerve. The extrusion is contiguous with a right paracentral disc extrusion described above. There is moderate to severe left, mild right foraminal stenosis. L4/5: Laminectomy changes are present with decompression of the central canal. A right asymmetric disc bulge severely narrows the right lateral recess. Mild bilateral facet hypertrophy is present contributing to mild left, moderate right foraminal stenosis. L5/S1: A small disc bulge is noted. Bilateral facet hypertrophy is present. There is mild bilateral foraminal stenosis. No significant central canal stenosis. IMPRESSION: Postoperative lumbar spine with large disc extrusions as described. [facility] NAME: KARLO NORRIS [address] [facility] PHYS: Howard Downs MD : 1960 AGE: 60 SEX: F [place] [address] LOC: Y.MRI PHONE #: [phone] EXAMDATE: 06/25/2021 STATUS: DEP CLI FAX #: [phone] RAD #: D/C DT PAGE 1 Signed Report (CONTINUED) Patient Name: KARLO NORRIS Unit No: [id number] EXAMS: CPT CODE: [id number] MRI L-SPINE W/O CONT 91245 <Continued> at 0911 Reported and signed by: Dallas Cortes M.D. CC: Melody Montes De Oca MD; Rafael Yao M.D.Technologist: Trinidad Prieto, RT(R) Transcribed D/ (11) [facility] JIM NORRIS[address] PHYS: Howard Downs MD : 1960 AGE: 60 SEX: F [place], [place] [address]IWWJ NO: [id number] LOC: Y.MRI PHONE #: [phone] EXAM DATE: 06/25/2021 STATUS: DEP CLI FAX #: [phone] RAD #: D/C DT PAGE 2 Signed Report Patient Name: KARLO NORRIS Unit No: [id number] EXAMS: CPT CODE: [id number] MRI L-SPINE W/O CONT [id number] <Continued> Orig Print D/T: S: 06/26/2021 (0914) [facility] NAME: KARLO NORRIS [address] PHYS: Howard Downs MD : 1960 AGE: 60 SEX: F [place] [address] LOC: Y.MRI PHONE #: [phone] EXAM DATE: 06/25/2021 STATUS: DEP CLI FAX #: [phone] RAD #: D/C DT PAGE 3 Signed Report- MRI PELVIS W/O [id number] 13:37:00[facility] : 1960 Sex: F Patient Name: KARLO NORRIS Unit No: [id number] EXAMS: CPT CODE: [id number] MRI PELVIS W/O CONT 21015 TECHNIQUE: Multiplanar, multisequence MRI of the pelvis without contrast. COMPARISON: None available. FINDINGS: No acutefracture is visualized. Bone marrow signal is within normal limits. No significant hip joint effusion. Linear signal within the superior labrum is suspicious for a labral tear. Mild/moderate diffuse right hip cartilage degeneration is visualized. A high-grade gluteus medius tendon tear reaches full-thickness over a transverse dimension of 1.6 cm with tendon retraction of up to 4 cm. Moderate associated muscle atrophy is present. There is also a chronic avulsion of the right gluteus minimus with an adjacent corticated ossific fragment anteriorly measuring 2.9 cm. A high-grade tear of the left gluteus medius tendon is also noted measuring2.2 cm transversely with mild associated muscle atrophy. Lower lumbar disc degeneration facet hypertrophy are partially visualized. The sacroiliac joints are within normal limits. No significant intrapelvic abnormality. IMPRESSION: 1. No acute findings of the pelvis. 2. Suspected tear of the right superior labrum as well as mild/moderate right hip cartilage loss.. 3. High-grade tearing of the right gluteus medius and minimus tendons as described. at 1337 Reported and signed by: Dallas Cortes M.D. CC: Melody Montes De Oca MD Technologist: Val Jimenez(R) Transcribed D/ (8944) [facility] NAME: KARLO NORRIS [facility] [address] [place] [address] PHYS: [email or web address] - Melody Montes De Oca MD : 1960 AGE: 60 SEX: F [place] [address] LOC: Y.MRI PHONE #: [phone] EXAM DATE: 06/09/2021 STATUS: REG CLI FAX #: [phone] RAD #: D/C DT PAGE 1 Signed Report Patient Name: KARLO NORRIS Unit No: [id number] EXAMS: CPT CODE: [id number] MRI PELVIS W/O CONT 01482 <Continued> Orig Print D/T: S: 06/09/2021 (1349) [facility] NAME: KARLO NORRIS [address] PHYS: [email or web address] - Melody Montes De Oca MD : 1960 AGE: 60 SEX: F [place] [address] LOC: Y.MRI PHONE #: [phone] EXAM DATE: 06/09/2021 STATUS: REG CLI FAX #: [phone] RAD #: D/C DT PAGE 2 Signed Report
[2021-07-17] MEDS ORDERED: NA CHLORIDE 0.9% 1,000 ML ONE (10:09)
[2021-07-17] MEDS ORDERED: ONDANSETRON 4 MG/2 ML VIAL ONE (10:09)
[2021-07-17 10:11] LABS: Absolute Lymphocytes (CBC) 1.5 K/uL (0.7-4.9); Hematocrit 40.6 % (36.0-45.0); Lymphocytes % 11.3 % (15.3-44.8); MPV 6.9 fL (7.6-11.3); RBC Red Blood Cell Count 4.86 M/uL (3.86-4.86)
[2021-07-17 10:33] LABS: Albumin 3.3 g/dL (3.4-5.0); Potassium 3.2 mmol/L (3.5-5.1); Protein, Total 6.8 g/dL (6.4-8.2)
[2021-07-17] MEDS ORDERED: MORPHINE 4 MG/ML SYR ONE (10:48)
[2021-07-17 11:22] LABS: Urine Blood Negative (Negative); Urine Glucose Negative (Negative); Urine Protein Negative (Negative)
--- NOTE | 2021-07-17 11:24 | RAD REPORT ---
EXAM DESCRIPTION: CTAbdomen Pelvis W Contrast - 07/17/2021 11:06 am CLINICAL HISTORY: N/V 12 times since 7am r/o obstruction COMPARISON: No comparisonsStone Protocol dated 11/24/2017 TECHNIQUE: CT of the abdomen and pelvis was performed. All CT scans are performed using dose optimization technique as appropriate and may include automated exposure control or mA/KV adjustment according to patient size. FINDINGS: Lower chest: No acute abnormality. Liver: No acute abnormality or suspicious lesions. Biliary: No biliary ductal dilatation. Stomach: No significant focal abnormality. Duodenum: No significant focal abnormality. Pancreas: No significant abnormality. Spleen: No significant abnormality. Adrenal: Left adrenal nodule measures 3.3 cm, previously 2.8 cm but this is not significantly change since 2018. Kidney/ureter: No hydronephrosis. No renal calculi. Retroperitoneum: No retroperitoneal adenopathy. Vascular: No aneurysm. Bowel: No significant focal abnormality. Moderate stool. Peritoneum: No ascites or free air. Bladder: Grossly unremarkable. Reproductive: No adnexal masses. Bones: No acute fracture. Posterior laminectomy at L3. Other: Sebaceious cyst in the right buttock. IMPRESSION: No acute intra-abdominal or pelvic finding. Specifically, no bowel obstruction. Mild inc rease in a left adrenal nodule that is still consistent with an adenoma.
[2021-07-17 11:40] LABS: Urine Bacteria <20 /HPF (<20); Urine RBC <5 /HPF (NONE SEEN); Urine Urothelial Cells <5 /HPF (NONE SEEN); Urine Yeast FEW (NONE SEEN)
[2021-07-17] MEDS ORDERED: LIDOCAINE VISCOUS 2% SOLN 15 ML UDC ONE (11:52)
[2021-07-17] MEDS ORDERED: MAGNES/ALUMIN/SIMET 30ML UCUP ONE (11:52)
--- NOTE | 2021-07-17 12:05 | ER ---
Nurse's Notes [facility] Name: Estefany Beard Age: 60 yrs Sex: Female : 1960 Arrival Date: 07/17/2021 Time: 09:43 Bed 7 Private MD: Diagnosis: Nausea with vomiting, unspecified Presentation: 07/17 09:43 Chief complaint: EMS states: SPINE SURGERY x1 WK AGO, NOW WITH NO BM AND N/V x2 DAYS. bp Coronavirus screen: At this time, the client does not indicate any symptoms associated with coronavirus-19. Ebola Screen: No symptoms or risks identified at this time. Initial Sepsis Screen: Does the patient meet any 2 criteria? HR > 90 bpm. No. Patient's initial sepsis screen is negative. Does the patient have a suspected source of infection? No. Patient's initial sepsis screen is negative. Risk Assessment: Do you want to hurt yourself or someone else? Patient reports no desire to harm self or others. Onset of symptoms is unknown. Care prior to arrival: Medication(s) given: zofran 4 mg, IV initiated. 20 GA, in the right antecubital area, Glucose check: 223. 09:43 Method Of Arrival: EMS: [facility] bp 09:43 Acuity: JACE 3 bp Triage Assessment: 09:46 General: Appears distressed, uncomfortable, obese, Behavior is cooperative, appropriate bp for age, anxious. Pain: Denies pain. EENT: No deficits noted. Neuro: Level of Consciousness is awake, alert, obeys commands, Oriented to Appropriate for age. Cardiovascular: No deficits noted. Respiratory: No deficits noted. GI: Abdomen is non-distended, Reports constipation, nausea, vomiting. : No signs and/or symptoms were reported regarding the genitourinary system. Derm: No deficits noted. Musculoskeletal: No deficits noted. Historical: - Allergies: 09:46 No Known Allergies; bp - Home Meds: 09:46 Citracal Oral [Active]; Lexapro Oral [Active]; losartan Oral [Active]; bp - PMHx: 09:46 Diabetes - NIDDM; Hypertension; bp - Immunization history:: Adult Immunizations up to date. - Social history:: Smoking status: Patient denies any tobacco usage or history of. Screenin:47 Abuse screen: Denies threats or abuse. Denies injuries from another. Nutritional bp screening: No deficits noted. Tuberculosis screening: No symptoms or risk factors identified. Fall Risk None identified. Assessment: 09:47 General: SEE TRIAGE NOTE. bp 10:50 Reassessment: No changes from previously documented assessment. Patient and/or family bp updated on plan of care and expected duration. Pain level reassessed. CT PENDING. 11:22 Reassessment: No changes from previously documented assessment. Patient and/or family bp updated on plan of care and expected duration. Pain level reassessed. PT RETURNED FROM CT. 12:21 Reassessment: PT TBDC AFTER IVF. bp Vital Signs: 09:43 BP 154 / 82; Pulse 100; Resp 16; Temp 97.8; Pulse Ox 97% ; bp 10:50 BP 178 / 86; Pulse 85; Resp 16; Pulse Ox 95% ; bp 11:22 BP 150 / 71; Pulse 81; Resp 16; Pulse Ox 100% ; bp 11:52 BP 157 / 80; Pulse 90; Resp 16; Pulse Ox 100% ; bp ED Course: 09:43 Patient arrived in ED. bd 09:43 Pedro Pablo Rose, DORA is Primary Nurse. bp 09:44 Raffy Jacome MD is Attending Physician. solo 09:46 Triage completed. bp 09:46 Arm band placed on. bp 09:47 Patient has correct armband on for positive identification. Bed in low position. Call bp light in reach. Side rails up X2. 09:47 Maintain EMS IV. Dressing intact. Good blood return noted. Site clean \T\ dry. Gauge \T\ bp site: 20 GAUGE R AC. 09:50 Jessica Felipe FNP is [facility]. [facility] 11:07 CT Abd/Pelvis - IV Contrast Only In Process Unspecified. EDMS Administered Medications: 10:08 Drug: NS 0.9% 1000 ml Route: IV; Rate: 1 bolus; Site: right antecubital; zamora 10:08 Drug: Zofran (Ondansetron) 4 mg Route: IVP; Site: right antecubital; zamora 10:08 Follow up: Response: No adverse reaction zamora 10:45 Drug: morphine 4 mg Route: IVP; Infused Over: 4 mins; Site: right antecubital; bp 11:18 Follow up: Response: Pain is decreased bp 11:45 Drug: GI Cocktail without - (Maalox Suspension 30 ml, Lidocaine Liquid 2 % 15 bp ml) Route: PO; 12:05 Follow up: Response: No adverse reaction bp 12:15 Drug: Potassium Chloride 40 mEq Route: PO; bp 12:20 Follow up: Response: No adverse reaction bp Medication: 09:47 VIS not applicable for this client. bp Outcome: 12:05 Discharge ordered by MD. felipe 14:40 Patient left the ED. zamora Signatures: Dispatcher [employer] EDMS Antonietta Elliott Corey, MD MD cha Peltier, Brian, RN RN bp Nath-StagerDenice RN RN ha Hadash, Jennifer, FNP FNP jh7
--- NOTE | 2021-07-17 12:05 | EDPHYS ---
Physician Documentation [facility] Name: Estefany Beard Age: 60 yrs Sex: Female : 1960 Arrival Date: 07/17/2021 Time: 09:43 Bed 7 Private MD: ED Physician Raffy Jacome HPI: 07/17 09:58 This 60 yrs old Female presents to ER via EMS with complaints of Nausea and vomiting. jh7 09:58 The patient presents to the emergency department with nausea, vomiting, 12 times today. jh7 Onset: The symptoms/episode began/occurred this morning. 09:58 Patient presents for 10-12 episodes of vomiting starting this morning. She reports that jh7 she had a laminectomy done by Dr. Yao at [facility] 1 week ago. She states that she has been on [place] 10 this week, but that usually constipates her. States that she has been trying to drink water, but that she has not had a bowel movement in 3 days. States that she is able to pass gas, but feels bloated. Denies any pain at this time.. Historical: - Allergies: 09:46 No Known Allergies; bp - Home Meds: 09:46 Citracal Oral [Active]; Lexapro Oral [Active]; losartan Oral [Active]; bp - PMHx: 09:46 Diabetes - NIDDM; Hypertension; bp - Immunization history:: Adult Immunizations up to date. - Social history:: Smoking status: Patient denies any tobacco usage or history of. ROS: 09:58 Constitutional: Negative for fever, chills, and weight loss, Neck: Negative for injury, jh7 pain, and swelling, Cardiovascular: Negative for chest pain, palpitations, and edema, Respiratory: Negative for shortness of breath, cough, wheezing, and pleuritic chest pain. 09:58 MS/Extremity: Negative for injury and deformity, Skin: Negative for injury, rash, and discoloration, Neuro: Negative for headache, weakness, numbness, tingling, and seizure. 09:58 Abdomen/GI: Positive for nausea and vomiting, Negative for abdominal pain, diarrhea. 09:58 Back: Positive for Post laminectomy. 09:58 All other systems are negative. Exam: 09:58 Head/Face: Normocephalic, atraumatic. Eyes: Pupils equal round and reactive to light, [facility] extra-ocular motions intact. Lids and lashes normal. Conjunctiva and sclera are non-icteric and not injected. Cornea within normal limits. Periorbital areas with no swelling, redness, or edema. ENT: Nares patent. No nasal discharge, no septal abnormalities noted. Oropharynx with no redness, swelling, or masses, exudates, or evidence of obstruction, uvula midline. Mucous membranes moist. Cardiovascular: Regular rate and rhythm with a normal S1 and S2. No gallops, murmurs, or rubs. Normal PMI, no JVD. No pulse deficits. Respiratory: Lungs have equal breath sounds bilaterally, clear to auscultation and percussion. No rales, rhonchi or wheezes noted. No increased work of breathing, no retractions or nasal flaring. 09:58 Skin: Warm, dry with normal turgor. Normal color with no rashes, no lesions, and no evidence of cellulitis. Neuro: Awake and alert, GCS 15, oriented to person, place, time, and situation. Motor strength 5/5 in all extremities. Sensory grossly intact. Normal gait. 09:58 Constitutional: The patient appears in no acute distress, alert, uncomfortable. 09:58 Abdomen/GI: Inspection: abdomen appears normal, Bowel sounds: normal, Palpation: abdomen is soft and non-tender. 09:58 Back: Decreased range of motion secondary to recent surgery. Vital Signs: 09:43 BP 154 / 82; Pulse 100; Resp 16; Temp 97.8; Pulse Ox 97% ; bp 10:50 BP 178 / 86; Pulse 85; Resp 16; Pulse Ox 95% ; bp 11:22 BP 150 / 71; Pulse 81; Resp 16; Pulse Ox 100% ; bp 11:52 BP 157 / 80; Pulse 90; Resp 16; Pulse Ox 100% ; bp MDM: 09:44 Patient medically screened. solo 12:20 Differential diagnosis: Small bowel obstruction, constipation, nausea and vomiting. [facility] Data reviewed: vital signs, nurses notes, lab test result(s), radiologic studies, CT scan. Data interpreted: Pulse oximetry: is 100 %. Interpretation: normal. Counseling: I had a detailed discussion with the patient and/or guardian regarding: the historical points, exam findings, and any diagnostic results supporting the discharge/admit diagnosis, to return to the emergency department if symptoms worsen or persist or if there are any questions or concerns that arise at home. Response to treatment: the patient's symptoms have mildly improved after treatment. ED course: The patient remained stable throughout the ER visit. Her nausea significantly improved with Zofran, and she stated that the GI cocktail helped her gas pain. She was advised to take stool softeners at home and increase her p.o. fluid intake. Informed her that her labs were normal, and that her CT scan had no acute abnormalities. Reviewed nonacute findings noted on the CT scan. If she has any new concerning symptoms, she is advised to return to the ER.. 07/17 09:51 Order name: CBC with Diff; Complete Time: 10:22 [facility] 07/17 09:51 Order name: CMP; Complete Time: 11:00 [facility] 07/17 09:51 Order name: Lipase; Complete Time: 11:00 [facility] 07/17 09:51 Order name: Urine Microscopic Only; Complete Time: 12:01 [facility] 07/17 11:23 Order name: Urine Dipstick-Ancillary; Complete Time: 11:31 [facility] 07/17 11:43 Order name: Urine Culture [facility] 07/17 09:51 Order name: CT Abd/Pelvis - IV Contrast Only; Complete Time: 11:31 [facility] 07/17 09:51 Order name: IV Saline Lock; Complete Time: 09:56 [facility] 07/17 09:51 Order name: Labs collected and sent; Complete Time: 10:31 [facility] 07/17 09:51 Order name: Urine Dipstick-Ancillary (obtain specimen); Complete Time: 11:22 [facility] Administered Medications: 10:08 Drug: NS 0.9% 1000 ml Route: IV; Rate: 1 bolus; Site: right antecubital; zamora 10:08 Drug: Zofran (Ondansetron) 4 mg Route: IVP; Site: right antecubital; zamora 10:08 Follow up: Response: No adverse reaction zamora 10:45 Drug: morphine 4 mg Route: IVP; Infused Over: 4 mins; Site: right antecubital; bp 11:18 Follow up: Response: Pain is decreased bp 11:45 Drug: GI Cocktail without - (Maalox Suspension 30 ml, Lidocaine Liquid 2 % 15 bp ml) Route: PO; 12:05 Follow up: Response: No adverse reaction bp 12:15 Drug: Potassium Chloride 40 mEq Route: PO; bp 12:20 Follow up: Response: No adverse reaction bp Disposition Summary: 07/17/21 12:05 Discharge Ordered Location: Home [facility] Problem: new [facility] Symptoms: have improved [facility] Condition: Stable 7 Diagnosis - Nausea with vomiting, unspecified jh7 Followup: [facility] - With: Private Physician - When: 2 - 3 days - Reason: Recheck today's complaints Discharge Instructions: - Discharge Summary Sheet [facility] - Constipation, Adult 7 - Nausea and Vomiting, Adult [facility] Forms: - Medication Reconciliation Form [facility] - Thank You Letter [facility] Prescriptions: - ondansetron 4 mg Oral tablet,disintegrating - place 1 tablet by TRANSLINGUAL route 4 times per day; 20 tablet; Refills: 0, jh7 Product Selection Permitted Signatures: Dispatcher [employer] Raffy Laguerre MD MD cha Peltier, Brian, RN RN Denice Geronimo RN RN ha Hadash, Jennifer, FNP [facility]
[2021-07-17] MEDS ORDERED: POTASSIUM CL SA 10 MEQ TAB PO ONE (12:20)
[2021-07-17 14:47] VITALS: TEMP 97.8
[2021-07-17 14:50] VITALS: O2SAT 100
[2021-07-17 14:51] VITALS: BP 157/80
== END 2021-07-17 14:40 | disposition home or self-care (01) ==
LOC: ER 09:35
DX: R11.2 Nausea with vomiting, unspecified (principal); E11.9 Type 2 diabetes mellitus without complications; I10 Essential (primary) hypertension; Z98.890 Other specified postprocedural states
CPT/HCPCS: 87088; 85025; 87086; 36415; 87077; 87186; 83690; 80053; 74177; 96375; 96374; 99283; Q9967; J7030; J2405; 81003; 81015

== ENCOUNTER 2024-01-12 15:57 | Emergency (ER) | payer OTHER ==
--- OUTSIDE RECORDS SUMMARY | 2024-01-12 15:59 | XMS REPORT | Continuity of Care Document ---
Author Name Unknown Address [address] [facility] [address] [place] [id number] [facility] Address [address] [facility] [address] [place] [address] Care Team Providers Care Injection Molder Name Role Phone Howard Yao Attending Clinician Unavailab le GC_GCBZW_Kadiyala_S Attending Clinician Unavaila ble MELISSA_Boni_Tico_ Attending Clinician Unavail able Howard Yao Attending Clinician [phone] Melody Montes De Oca Attending Clinician Unavailable Howard Yao Admitting Clinician Unavailab le GC_GCBZW_Kadiyala_S Admitting Clinician Unavaila cari TORRES_Sherice Admitting Clinician Unavail able Melody Montes De Oca Admitting Clinician Unavailable Payers Payer Name Policy Type Policy Number Effective Date Expirati on Date Source [employer] - CHOICE (POS II) [id number] 2015 00:00:00 [employer] (POS) [id number] 2002 00:00:00 Problems Condition Name Condition Details Condition Category Status Onset Date Resolution Date Last Treatment Date Treating Clinician Comments Source Vitamin D deficiency Vitamin D Deficiency Problem Active 03-26 00:00: 00 [facility] Inconclusi ve mammograph y finding Inconclusi ve Mammograph y Finding Problem Active 2021-02 00:00: 00 [facility] Abnormal findings on diagnostic imaging of breast Abnormal Findings on Diagnostic Imaging of Breast Problem Active 2022-1 2-27 00:00: 00 [facility] Injury of muscle and tendon at hip and thigh level Injury of Muscle and Tendon at Hip and Thigh Level Problem Active 502 00:00: 00 [facility] Screening mammograph y Screening Mammograph y Problem Active 2020-02 007 00:00: 00 [facility] Screening for malignant neoplasm of colon Screening for Malignant Neoplasm of Colon Problem Active 2020-02 0 00:00: 00 [facility] Disorder of bone Disorder of Bone Problem Active 2017-02 0 00:00: 00 [facility] Gynecologi varun examinatio n abnormal Gynecologi varun Examinatio n Abnormal Problem Active 2017-02 0 00:00: 00 [facility] Essential hypertensi on Essential Hypertensi on Problem Active 2017-02 0 00:00: 00 [facility] 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 Problem Active 5 00:00: 00 [facility] Gynecologi c examinatio n Gynecologi c Examinatio n Problem Active 11-14 00:00: 00 [facility] Menopause present Menopause Present Problem Active 2014-02 0 00:00: 00 [facility] Atrophic vaginitis Atrophic Vaginitis Problem Active 2014-02 0 00:00: 00 [facility] Patellofem oral osteoarthr itis Patellofem oral Osteoarthr itis Problem Active 11-01 00:00: 00 [facility] Sleep apnea Sleep Apnea Problem Active 10-24 00:00: 00 [facility] Knee pain Knee Pain Problem Active 10-23 00:00: 00 [facility] Degenerati on of lumbar interverte bral disc Degenerati on of Lumbar Interverte bral Disc Problem Active 09-20 00:00: 00 [facility] Lumbar radiculopa thy Lumbar Radiculopa thy Problem Active 09-20 00:00: 00 [facility] Allergies, Adverse Reactions, Alerts Allergy Name Allergy Type Status Severity Reaction(s) Onset Date Inactive Date Treating Clinician Comments Source No Known Drug Allergie s DA Active U 07-02 00:00: 00 [facility] latex DA Active CA RASH 07-02 00:00: 00 [facility] No Known Drug Allergie s DA Active U 06-11 00:00: 00 [facility] latex DA Active CA RASH 06-11 00:00: 00 [facility] Social History Smoking Status Start Date Stop Date Source Never Smoker [facility] Medications Ordered Medication Name Filled Medication Name Start Date Stop Date Current Medication? Ordering Clinician Indication Dosage Frequency Signature (SIG) Comments Components Source Robaxin 500 mg tablet TAKE 1 TABLET BY MOUTH EVERY 6 HOURS NEEDED FOR MUSCLE SPASMS Robaxin 500 mg tablet TAKE 1 TABLET BY MOUTH EVERY 6 HOURS NEEDED FOR MUSCLE SPASMS 06-11 00:00: 00 No Robaxin 500 mg tablet TAKE 1 TABLET BY MOUTH EVERY 6 HOURS NEEDED FOR MUSCLE SPASMS [facility] Robaxin 500 mg tablet TAKE 1 TABLET BY MOUTH EVERY 6 HOURS NEEDED FOR MUSCLE SPASMS Robaxin 500 mg tablet TAKE 1 TABLET BY MOUTH EVERY 6 HOURS NEEDED FOR MUSCLE SPASMS 06-11 00:00: 00 No Robaxin 500 mg tablet TAKE 1 TABLET BY MOUTH EVERY 6 HOURS NEEDED FOR MUSCLE SPASMS [facility] etodolac ER 500 mg tablet,exte nded release 24 hr Take one tablet by mouth daily etodolac ER 500 mg tablet,exte nded release 24 hr Take one tablet by mouth daily 2015-02 00:00: 00 No etodolac ER 500 mg tablet,ext ended release 24 hr Take one tablet by mouth daily [facility] etodolac ER 500 mg tablet,exte nded release 24 hr Take one tablet by mouth daily etodolac ER 500 mg tablet,exte nded release 24 hr Take one tablet by mouth daily 2015-02 00:00: 00 No etodolac ER 500 mg tablet,ext ended release 24 hr Take one tablet by mouth daily [facility] Benicar HCT 40 mg-25 mg tablet RX by other Benicar HCT 40 mg-25 mg tablet RX by other 10-23 00:00: 00 No Benicar HCT 40 mg-25 mg tablet RX by other [facility] Benicar HCT 40 mg-25 mg tablet RX by other Benicar HCT 40 mg-25 mg tablet RX by other 10-23 00:00: 00 No Benicar HCT 40 mg-25 mg tablet RX by other MD [facility] Mobic 7.5 mg tablet take 1 tablet bid with food Mobic 7.5 mg tablet take 1 tablet bid with food 09-20 00:00: 00 No Mobic 7.5 mg tablet take 1 tablet bid with food [facility] prednisone 10 mg tablet take tablets 6,5,4,3,2,1 prednisone 10 mg tablet take tablets 6,5,4,3,2,1 09-20 00:00: 00 No prednisone 10 mg tablet take tablets 6,5,4,3,2, 1 [facility] Mobic 7.5 mg tablet take 1 tablet bid with food Mobic 7.5 mg tablet take 1 tablet bid with food 09-20 00:00: 00 No Mobic 7.5 mg tablet take 1 tablet bid with food [facility] prednisone 10 mg tablet take tablets 6,5,4,3,2,1 prednisone 10 mg tablet take tablets 6,5,4,3,2,1 09-20 00:00: 00 No prednisone 10 mg tablet take tablets 6,5,4,3,2, 1 [facility] acetaminoph en 300 mg-codeine 30 mg tablet acetaminoph en 300 mg-codeine 30 mg tablet No acetaminop hen 300 mg-codeine 30 mg tablet [facility] acetaminoph en 300 mg-codeine 60 mg tablet Take 1 tablet every 6 hours by oral route. acetaminoph en 300 mg-codeine 60 mg tablet Take 1 tablet every 6 hours by oral route. No 1 Q6H acetaminop hen 300 mg-codeine 60 mg tablet Take 1 tablet every 6 hours by oral route. [facility] amitriptyli ne 25 mg tablet TAKE 1 TABLET BY MOUTH EVERY DAY AT BEDTIME NEEDED amitriptyli ne 25 mg tablet TAKE 1 TABLET BY MOUTH EVERY DAY AT BEDTIME NEEDED No amitriptyl ine 25 mg tablet TAKE 1 TABLET BY MOUTH EVERY DAY AT BEDTIME NEEDED [facility] Calcium Antacid 400 mg calcium (1,000 mg) chewable tablet RX by other Calcium Antacid 400 mg calcium (1,000 mg) chewable tablet RX by other No Calcium Antacid 400 mg calcium (1,000 mg) chewable tablet RX by other [facility] cephalexin 500 mg capsule Take 1 capsule 4 times a day by oral route for 2 days. cephalexin 500 mg capsule Take 1 capsule 4 times a day by oral route for 2 days. No cephalexin 500 mg capsule Take 1 capsule 4 times a day by oral route for 2 days. [facility] cyclobenzap rine 10 mg tablet TAKE 1 TABLET BY MOUTH THREE TIMES A DAY FOR 30 DAYS cyclobenzap rine 10 mg tablet TAKE 1 TABLET BY MOUTH THREE TIMES A DAY FOR 30 DAYS No cyclobenza jean carlos 10 mg tablet TAKE 1 TABLET BY MOUTH THREE TIMES A DAY FOR [address] [facility] hydrocodone 10 mg-acetamin ophen 325 mg tablet Take 1 tablet every 6 hours by oral route for 7 days. hydrocodone 10 mg-acetamin ophen 325 mg tablet Take 1 tablet every 6 hours by oral route for 7 days. No 1 Q6H hydrocodon e 10 mg-acetami nophen 325 mg tablet Take 1 tablet every 6 hours by oral route for 7 days. [facility] hydroxyzine pamoate 50 mg capsule TAKE 1 CAPSULE BY MOUTH FOUR TIMES A DAY hydroxyzine pamoate 50 mg capsule TAKE 1 CAPSULE BY MOUTH FOUR TIMES A DAY No hydroxyzin e pamoate 50 mg capsule TAKE 1 CAPSULE BY MOUTH FOUR TIMES A DAY [facility] ibuprofen 600 mg tablet ibuprofen 600 mg tablet No ibuprofen 600 mg tablet [facility] Lexapro 20 mg tablet RX by other Lexapro 20 mg tablet RX by other No Lexapro 20 mg tablet RX by other [facility] meloxicam 15 mg tablet TAKE 1 TABLET BY MOUTH EVERY DAY meloxicam 15 mg tablet TAKE 1 TABLET BY MOUTH EVERY DAY No meloxicam 15 mg tablet TAKE 1 TABLET BY MOUTH EVERY DAY [facility] metformin 500 mg tablet TAKE 1 TABLET BY MOUTH TWICE A DAY metformin 500 mg tablet TAKE 1 TABLET BY MOUTH TWICE A DAY No metformin 500 mg tablet TAKE 1 TABLET BY MOUTH TWICE A DAY [facility] methylpredn isolone 4 mg tablets in a dose pack Take 1 dose pk by oral route. methylpredn isolone 4 mg tablets in a dose pack Take 1 dose pk by oral route. No methylpred nisolone 4 mg tablets in a dose pack Take 1 dose pk by oral route. [facility] ondansetron HCl 4 mg tablet ondansetron HCl 4 mg tablet No ondansetro n HCl 4 mg tablet [facility] prednisone 20 mg tablet TAKE 1 TABLET BY MOUTH EVERY DAY prednisone 20 mg tablet TAKE 1 TABLET BY MOUTH EVERY DAY No prednisone 20 mg tablet TAKE 1 TABLET BY MOUTH EVERY DAY [facility] telmisartan 80 mg-hydrochl orothiazide 12.5 mg tablet TAKE 1 TABLET BY MOUTH EVERY DAY telmisartan 80 mg-hydrochl orothiazide 12.5 mg tablet TAKE 1 TABLET BY MOUTH EVERY DAY No telmisarta n 80 mg-hydroch lorothiazi de 12.5 mg tablet TAKE 1 TABLET BY MOUTH EVERY DAY [facility] tizanidine 4 mg tablet Take 1 tablet 3 times a day by oral route for 30 days. tizanidine 4 mg tablet Take 1 tablet 3 times a day by oral route for 30 days. No tizanidine 4 mg tablet Take 1 tablet 3 times a day by oral route for 30 days. [facility] calcium calcium No calcium [facility] tramadol 50 mg tablet TAKE 1 TABLET BY MOUTH EVERY 4 TO 6 HOURS NEEDED tramadol 50 mg tablet TAKE 1 TABLET BY MOUTH EVERY 4 TO 6 HOURS NEEDED No tramadol 50 mg tablet TAKE 1 TABLET BY MOUTH EVERY 4 TO 6 HOURS NEEDED [facility] acetaminoph en 300 mg-codeine 30 mg tablet acetaminoph en 300 mg-codeine 30 mg tablet No acetaminop hen 300 mg-codeine 30 mg tablet [facility] acetaminoph en 300 mg-codeine 60 mg tablet Take 1 tablet every 6 hours by oral route. acetaminoph en 300 mg-codeine 60 mg tablet Take 1 tablet every 6 hours by oral route. No 1 Q6H acetaminop hen 300 mg-codeine 60 mg tablet Take 1 tablet every 6 hours by oral route. [facility] amitriptyli ne 25 mg tablet TAKE 1 TABLET BY MOUTH EVERY DAY AT BEDTIME NEEDED amitriptyli ne 25 mg tablet TAKE 1 TABLET BY MOUTH EVERY DAY AT BEDTIME NEEDED No amitriptyl ine 25 mg tablet TAKE 1 TABLET BY MOUTH EVERY DAY AT BEDTIME NEEDED [facility] Calcium Antacid 400 mg calcium (1,000 mg) chewable tablet RX by other MD Calcium Antacid 400 mg calcium (1,000 mg) chewable tablet RX by other MD No Calcium Antacid 400 mg calcium (1,000 mg) chewable tablet RX by other MD [facility] cephalexin 500 mg capsule Take 1 capsule 4 times a day by oral route for 2 days. cephalexin 500 mg capsule Take 1 capsule 4 times a day by oral route for 2 days. No cephalexin 500 mg capsule Take 1 capsule 4 times a day by oral route for 2 days. [facility] cyclobenzap rine 10 mg tablet TAKE 1 TABLET BY MOUTH THREE TIMES A DAY FOR 30 DAYS cyclobenzap rine 10 mg tablet TAKE 1 TABLET BY MOUTH THREE TIMES A DAY FOR 30 DAYS No cyclobenza jean carlos 10 mg tablet TAKE 1 TABLET BY MOUTH THREE TIMES A DAY FOR 30 DAYS [facility] escitalopra m 20 mg tablet TAKE 1 TABLET BY MOUTH EVERY DAY escitalopra m 20 mg tablet TAKE 1 TABLET BY MOUTH EVERY DAY No escitalopr am 20 mg tablet TAKE 1 TABLET BY MOUTH EVERY DAY [facility] hydrocodone 10 mg-acetamin ophen 325 mg tablet TAKE 1 TABLET BY MOUTH EVERY 6 HOURS FOR 7 DAYS hydrocodone 10 mg-acetamin ophen 325 mg tablet TAKE 1 TABLET BY MOUTH EVERY 6 HOURS FOR 7 DAYS No hydrocodon e 10 mg-acetami nophen 325 mg tablet TAKE 1 TABLET BY MOUTH EVERY 6 HOURS FOR 7 DAYS [facility] hydroxyzine pamoate 50 mg capsule TAKE 1 CAPSULE BY MOUTH FOUR TIMES A DAY hydroxyzine pamoate 50 mg capsule TAKE 1 CAPSULE BY MOUTH FOUR TIMES A DAY No hydroxyzin e pamoate 50 mg capsule TAKE 1 CAPSULE BY MOUTH FOUR TIMES A DAY [facility] estradiol 0.01% (0.1 mg/gram) vaginal cream Insert 0.5 g 3 times a week by vaginal route at bedtime for 30 days. estradiol 0.01% (0.1 mg/gram) vaginal cream Insert 0.5 g 3 times a week by vaginal route at bedtime for 30 days. No .5g Q56H estradiol 0.01% (0.1 mg/gram) vaginal cream Insert 0.5 g 3 times a week by vaginal route at bedtime for 30 days. [facility] ibuprofen 600 mg tablet ibuprofen 600 mg tablet No ibuprofen 600 mg tablet [facility] meloxicam 15 mg tablet TAKE 1 TABLET BY MOUTH EVERY DAY meloxicam 15 mg tablet TAKE 1 TABLET BY MOUTH EVERY DAY No meloxicam 15 mg tablet TAKE 1 TABLET BY MOUTH EVERY DAY [facility] metformin 500 mg tablet TAKE 1 TABLET BY MOUTH TWICE A DAY metformin 500 mg tablet TAKE 1 TABLET BY MOUTH TWICE A DAY No metformin 500 mg tablet TAKE 1 TABLET BY MOUTH TWICE A DAY [facility] methylpredn isolone 4 mg tablets in a dose pack Take 1 dose pk by oral route. methylpredn isolone 4 mg tablets in a dose pack Take 1 dose pk by oral route. No methylpred nisolone 4 mg tablets in a dose pack Take 1 dose pk by oral route. [facility] ondansetron 4 mg disintegrat ing tablet DISSOLVE IN MOUTH 1 TABLET 4 TIMES A DAY ondansetron 4 mg disintegrat ing tablet DISSOLVE IN MOUTH 1 TABLET 4 TIMES A DAY No ondansetro n 4 mg disintegra ting tablet DISSOLVE IN MOUTH 1 TABLET 4 TIMES A DAY [facility] ondansetron HCl 4 mg tablet ondansetron HCl 4 mg tablet No ondansetro n HCl 4 mg tablet [facility] prednisone 20 mg tablet TAKE 1 TABLET BY MOUTH EVERY DAY prednisone 20 mg tablet TAKE 1 TABLET BY MOUTH EVERY DAY No prednisone 20 mg tablet TAKE 1 TABLET BY MOUTH EVERY DAY [facility] telmisartan 80 mg-hydrochl orothiazide 12.5 mg tablet TAKE 1 TABLET BY MOUTH EVERY DAY. PT NEEDS APPT! telmisartan 80 mg-hydrochl orothiazide 12.5 mg tablet TAKE 1 TABLET BY MOUTH EVERY DAY. PT NEEDS APPT! No telmisarta n 80 mg-hydroch lorothiazi de 12.5 mg tablet TAKE 1 TABLET BY MOUTH EVERY DAY. PT NEEDS APPT! [facility] tizanidine 4 mg tablet Take 1 tablet 3 times a day by oral route for 30 days. tizanidine 4 mg tablet Take 1 tablet 3 times a day by oral route for 30 days. No tizanidine 4 mg tablet Take 1 tablet 3 times a day by oral route for 30 days. [facility] tramadol 50 mg tablet TAKE 1 TABLET BY MOUTH EVERY 4 TO 6 HOURS NEEDED tramadol 50 mg tablet TAKE 1 TABLET BY MOUTH EVERY 4 TO 6 HOURS NEEDED No tramadol 50 mg tablet TAKE 1 TABLET BY MOUTH EVERY 4 TO 6 HOURS NEEDED [facility] Fish Oil Fish Oil No Fish Oil [facility] hydrochloro thiazide hydrochloro thiazide No hydrochlor othiazide [facility] ibandronate 150 mg tablet 1 TABLET ONCE EVERY MONTH ibandronate 150 mg tablet 1 TABLET ONCE EVERY MONTH No ibandronat e 150 mg tablet 1 TABLET ONCE EVERY MONTH [facility] magnesium magnesium No magnesium [facility] Multivitami n 50 Plus Multivitami n 50 Plus No Multivitam in 50 Plus [facility] telmisartan 80 mg-hydrochl orothiazide 12.5 mg tablet TAKE 1 TABLET BY MOUTH EVERY DAY telmisartan 80 mg-hydrochl orothiazide 12.5 mg tablet TAKE 1 TABLET BY MOUTH EVERY DAY No telmisarta n 80 mg-hydroch lorothiazi de 12.5 mg tablet TAKE 1 TABLET BY MOUTH EVERY DAY [facility] tizanidine 4 mg tablet TAKE 1 TABLET BY MOUTH THREE TIMES A DAY tizanidine 4 mg tablet TAKE 1 TABLET BY MOUTH THREE TIMES A DAY No tizanidine 4 mg tablet TAKE 1 TABLET BY MOUTH THREE TIMES A DAY [facility] zinc zinc No zinc [facility] Vital Signs Vital Name Observation Time Observation Value Comments S ource Body Weight 2023-12-22 00:00:00 184.4 [lb_av] [facility] BP Systolic 2023-12-22 00:00:00 142 mm[Hg] [facility] Height 2023-12-22 00:00:00 61 [in_i] [facility] BMI (Body Mass Index) 2023-12-22 00:00:00 34.8 kg/m2 [facility] BP Diastolic 2023-12-22 00:00:00 82 mm[Hg] [facility] Height 2021-08-01 00:00:00 61 [in_i] [facility] BMI (Body Mass Index) 2021-08-01 00:00:00 35 kg/m2 [facility] Body Weight 2021-08-01 00:00:00 185 [lb_av] [facility] Procedures Procedure Date / Time Performed Performing Clinician Source US, breast, unilateral 2023-12-22 00:00:00 [facility] MAMMO, diagnostic, digital, unilateral 2023-12-22 00:00:00 [facility] RADEX SPI LUMBOSAC 2/3 VIEWS 2021-06-25 00:00:00 [facility] MRI, lumbar spine, w/o contrast 2021-06-25 00:00:00 [facility] Mammography 2020-06-15 00:00:00 [facility] Lumbar Microdiscectomy 2020-02-16 00:00:00 [facility] Colonoscopy 2019-02-15 00:00:00 [facility] Orthopedic - Knee Replacement [facility] Operative Procedure on Knee [facility] Procedure on Ankle [facility] varun Encounters Start Date/Time End Date/Time Encounter Type Admission Type Attending Clinicians Care Facility Care Department Encounter ID Source 2021-07-03 11:19:00 Inpatient MAG Yao, Jack HCATO HCATO [id number] [facility] [place] [facility] 2023-12-22 00:00:00 2023-12-22 00:00:00 FABIENNE Mcnamara: [address], [address], [place] [address] , Ph. [facility] - GC_GCBZW_Kenia Reyez* [id number] [facility] 2022-11-25 00:00:00 2022-11-25 00:00:00 Outpatient GC_GCBZW_Ka diyala_S [facility] PRIV [id number] [facility] 2022-11-24 00:00:00 2022-11-24 00:00:00 Outpatient GC_GCBZW_Ka diyala_S [facility] PRIV [id number] [facility] 2021-08-01 11:15:00 2021-08-01 11:15:00 Outpatient FOG_Mathews _Vasil_MD AOSM AO [id number] [facility] 2021-08-01 00:00:00 2021-08-01 00:00:00 Outpatient Howard Yao AO AO [id number] 2021-08-01 00:00:00 2021-08-01 00:00:00 Howard Yao MD: [address] [place] [address] , Ph. [phone] [facility]OS[facility] [place] [facility] [id number] [facility] 2021-07-21 02:15:00 2021-07-21 02:15:00 Outpatient FOG_Mathews _Vasil_MD AOSM AO [id number] [facility] 2021-07-18 11:52:00 2021-07-18 11:52:00 Outpatient FOG_Mathews _Vasil_MD AOSM AO [id number] [facility] 2021-07-16 02:14:00 2021-07-16 02:14:00 Outpatient FOG_Mathews _Vasil_MD AOSM AOSM [id number] [facility] 2021-07-10 08:31:00 2021-07-11 14:01:00 Outpatient Howard Whittaker HCATO OBSE [id number] [facility] [place] [facility] 2021-07-10 08:31:00 2021-07-11 14:01:00 Outpatient Howard Whittaker HCATO OBSE [id number] [facility] [place] [facility] 2021-07-10 00:00:00 2021-07-10 00:00:00 Howard Yao MD: [address] [place], [place] [address] , Ph. [phone] [place] [facility] [id number] [facility] 2021-07-10 00:00:00 2021-07-10 00:00:00 Outpatient Howard Yao [facility] [id number] 2021-07-02 15:39:00 2021-07-02 15:39:00 Outpatient Howard Yao HCACL LABO [id number] [facility] 2021-07-02 00:00:00 2021-07-02 00:00:00 Howard Yao MD: [address] [place], [place] [address] , Ph. [phone] [place] [facility] [place] [id number] [facility] 2021-06-25 15:52:00 2021-06-25 15:52:00 Outpatient Howard Whittaker HCATO RADI [id number] [facility] 2021-06-25 00:00:00 2021-06-25 00:00:00 Howard Yao MD: [address] [place], [place] [id number] , Ph. [phone] [place] [facility] [place] [id number] [facility] 2021-06-09 07:26:00 2021-06-09 07:26:00 Outpatient Melody Goldstein HCATO RADI [id number] [facility] Results Test Description Test Time Test Comments Results Resul t Comments Source - XR SPINE 1 V SPEC LEVEL 2021-07-11 07:33:00 [facility] 1960 Sex: F Patient Name: ESTEFANY BEARD Unit No: [id number] EXAMS: CPT CODE: [id number] XR SPINE 1 V SPEC LEVEL 59351 INTRAOPERATIVE LATERAL LUMBAR SPINE Film 1. A marker is posterior to L2. Film 2. Surgical instruments are posterior to L3 and L4. Film 3. A surgical instrument is posterior to L3. at 0733 Reported and signed by: Turner Stoner MD CC: Rafael Yao M.D. Technologist: FRANKI ROMERO (RT.R) Transcribed D/ (0733) Odal[facility] NAME: ESTEFANY BEARD [address] [facility] PHYS: Howard Downs MD : 1960 AGE: 60 SEX: F [place], [place] [address] LOC: [id number] PHONE #: [phone] EXAM DATE: 07/10/2021 STATUS: REG [facility] FAX #: [phone] RAD #: D/C DT PAGE 1 Signed Report Patient Name: ESTEFANY BEARD Unit No: [id number] EXAMS: CPT CODE: [id number] XR SPINE 1 V SPEC LEVEL 81406 (Continued) Orig Print D/T: S: 07/11/2021 (0736) [facility] NAME: ESTEFANY BEARD [address] [facility] PHYS: Howard Downs MD : 1960 AGE: 60 SEX: F [place], [place] [address] LOC: [id number].318 A PHONE #: [phone] EXAM DATE: 07/10/2021 STATUS: REG SDC FAX #: [phone] RAD #: D/C DT PAGE 2 Signed Report [id number] 06:04:00* Test Item Value Reference Range Interpretation Comme nts GLUBED (test code = GLUBED) 161 mg/dL 60-125 H [id number] 05:17:00* Test Item Value Reference Range Interpretation Comme nts glubed (test code = glubed) 161 mg/dL 60-125 H performing lab: (test code = performing lab:) [facility] [id number] 03:35:00* Test Item Value Reference Range Interpretation Comme nts sodium (test code = sodium) 136 mmol/L 136-145 potassium (test code = potassium) 4.7 mmol/L 3.5-5.1 chloride (test code = chloride) 100.0 mmol/L 98-107 carbon dioxide (test code = carbon dioxide) 27.6 mmol/L 21-32 glucose (test code = glucose) 160 mg/dL 70-110 H blood urea nitrogen (test co de = blood urea nitrogen) 14 mg/dL 7-18 glomerular filtration rate ( test code = glomerular filtration rate) 79.1 >60 creatinine (test code = creatinine) 0.75 mg/dL 0.55-1.30 calcium (test code = calcium) 8.4 mg/dL 8.2-10.1 performing lab: (test code = performing lab:) [facility]* Test Item Value Reference Range Interpretation Comme nts GLUBED (test code = GLUBED) 213 mg/dL 60-125 H [id number] 20:59:00* Test Item Value Reference Range Interpretation Comme nts glubed (test code = glubed) 213 mg/dL 60-125 H performing lab: (test code = performing lab:) [facility] 10:29:00* Test Item Value Reference Range Interpretation Comme nts GLUBED (test code = GLUBED) 122 mg/dL 60-125 N [id number] 10:17:00* Test Item Value Reference Range Interpretation Comme nts glubed (test code = glubed) 122 mg/dL 60-125 performing lab: (test code = performing lab:) [facility] [id number] 12:57:00* Test Item Value Reference Range Interpretation Comme nts SODIUM (test code = NA) 134 mmol/L 136-145 L POTASSIUM (test code = K) 4.1 mmol/L 3.5-5.1 N CHLORIDE (test code = CL) 95.0 mmol/L 98-107 L CARBON DIOXIDE (test code = CO2) 27.8 mmol/L 21-32 N GLUCOSE (test code = GLU) 142 mg/dL 70-110 H BLOOD UREA NITROGEN (test code = BUN) 24 mg/dL 7-18 H GLOMERULAR FILTRATION RATE (test code = GFR) 62.5 >60 Unit of m easure: mL/min/1.73 [id number] Range:Healthy Adults >90 mL/min/1.73 m2 For Chronic Kidney Disease: Stage II Mild Decrease in GFR 60-90 Stage III Moderate Decrease in GFR 30-59 Stage IV Severe Decrease in GFR 15-29 Stage V Kidney Failure <15 CREATININE (test code = CREAT) 0.92 mg/dL 0.55-1.30 N CALCIUM (test code = CA) 9.3 mg/dL 8.2-10.1 N URINALYSIS [id number] 12:48:00* Test Item Value Reference Range Interpretation Comme nts UA COLOR (test code = COLU) YELLOW YELLOW UA APPEARANCE (test code = APPU) CLEAR CLEAR UA GLUCOSE DIPSTICK (test code = DGLUU) 1+ NEGATIVE A UA BILIRUBIN DIPSTICK (test code = BILU) NEGATIVE NEGATIVE UA KETONE DIPSTICK (test code = KETU) NEGATIVE mg/dL NEG UA SPECIFIC GRAVITY (test code = SGU) 1.015 1.003-1.035 UA BLOOD DIPSTICK (test code = ANDRE) NEGATIVE NEGATIVE UA PH DIPSTICK (test code = CHRIS) 7.0 See_Comment [Automated message] The system which generated this result transmitted reference range: 6.5. The reference range was not used to interpret this result as normal/abnormal. UA PROTEIN DIPSTICK (test code = PROU) NEGATIVE mg/dL NEG UA UROBILINIOGEN DIPSTICK (test code = URO) 0.2 mg/dL NORM UA NITRITE DIPSTICK (test code = SYMONE) NEGATIVE NEG UA LEUKOCYTE ESTERASE DIPSTICK (test code = LEUU) NEGATIVE NEGATIVE UA WBC (test code = WBCU) 2-5 /HPF 0-2 UA RBC (test code = RBCU) 0-2 /HPF 0-2 UA EPITHELIAL CELLS (test code = EPIU) 2-5 /HPF 0-2 UA BACTERIA (test code = BACU) FEW /HPF NONE CBC W/AUTO [id number] 12:35:00* Test Item Value Reference Range Interpretation Comme nts WHITE BLOOD CELL (test code = WBC) [...] 27-34 N MEAN CELL HGB CONCENTRATION (test code = MCHC) 33.5 g/dL 30.8-34.1 N RED CELL DISTRIBUTION WIDTH (test code = RDW) 14.0 % 11-16 N PLT (test code = PLT) 329 K/mm3 130-400 N MEAN PLATELET VOLUME (test c ode = MPV) 8.6 fL 8.9-12.1 L NEUTROPHIL % (test code = NT%) 73.4 [...] K/mm3 0.02-0.10 N MANUAL DIFF REQUIRED (test c ode = MDIFF) NO MANUAL DIFF NUCLEATED RED BLOOD CELL (te st code = NRBC) 0 % 0-0 N basic metabolic [id number] 11:45:00* Test Item Value Reference Range Interpretation Comme nts sodium (test code = sodium) 134 mmol/L 136-145 L potassium (test code = potassium) 4.1 mmol/L 3.5-5.1 chloride (test code = chloride) 95.0 mmol/L 98-107 L carbon dioxide (test code = carbon dioxide) 27.8 mmol/L 21-32 glucose (test code = glucose) 142 mg/dL 70-110 H blood urea nitrogen (test co de = blood urea nitrogen) 24 mg/dL 7-18 H glomerular filtration rate ( test code = glomerular filtration rate) 62.5 >60 creatinine (test code = creatinine) 0.92 mg/dL 0.55-1.30 calcium (test code = calcium) 9.3 mg/dL 8.2-10.1 performing lab: (test code = performing lab:) [facility]eth[facility] resistant Staphylococcus aureus [Presence] in Specimen by Organism specific [id number] 11:45:00* Test Item Value Reference Range Interpretation Comme nts MRSA surveillance screen (te st code = MRSA surveillance screen) see below performing lab: (test code = performing lab:) [facility] PCR surveillance [id number] 11:45:00 * Test Item Value Reference Range Interpretation Comme nts mssa PCR surveillance screen (test code = mssa PCR surveillance screen) see below performing lab: (test code = performing lab:) [facility] Differential panel - [id number] 11:45:00* Test Item Value Reference Range Interpretation Comme nts white blood cell (test code = white blood cell) 11.6 K/mm3 5.8-11.0 H red blood cell (test code = red blood cell) 5.05 M/mm3 4.2-5.4 hemoglobin (test code = hemoglobin) 14.2 g/dL 12-16 hematocrit (test code = hematocrit) 42.4 % 37-47 mean cell volume (test code = mean cell volume) 84 fL 80-98 mean cell HGB (test code = m fatou cell HGB) 28.1 pg 27-34 mean cell HGB concentration (test code = mean cell HGB concentration) 33.5 g/dL 30.8-34.1 red cell distribution width (test code = red cell distribution width) 14.0 % 11-16 plt (test code = plt) 329 K/mm3 130-400 mean platelet volume (test c ode = mean platelet volume) 8.6 fL 8.9-12.1 L neutrophil % (test code = neutrophil %) 73.4 % 45-70 H lymphocyte % (test code = lymphocyte %) 20.1 % 20-40 monocyte % (test code = mono cyte %) 4.6 % 3-10 eosinophil % (test code = eosinophil %) 0.7 % 1-5 L basophil % (test code = baso aleksandra %) 0.3 % 0.0-1.1 neutrophil # (test code = neutrophil #) 8.51 K/mm3 2.00-7.50 H lymphocyte # (test code = lymphocyte #) 2.32 K/mm3 1.50-4.00 monocyte # (test code = mono cyte #) 0.53 K/mm3 0.2-0.8 eosinophil # (test code = eosinophil #) 0.08 K/mm3 0.04-0.4 basophil # (test code = baso aleksandra #) 0.03 K/mm3 0.02-0.10 manual diff required (test c ode = manual diff required) no manual diff nucleated red blood cell (te st code = nucleated red blood cell) 0 % 0-0 performing lab: (test code = performing lab:) [facility] Medicine[facility]inal[facility] [id number] 11:40:00* Test Item Value Reference Range Interpretation Comme nts UA color (test code = UA color) yellow yellow UA appearance (test code = UA appearance) clear clear UA glucose dipstick (test code = UA glucose dipstick) 1+ negative A UA bilirubin dipstick (test code = UA bilirubin dipstick) negative negative UA ketone dipstick (test code = UA ketone dipstick) negative neg UA specific gravity (test code = UA specific gravity) 1.015 1.003-1.035 UA blood dipstick (test code = UA blood dipstick) negative negative UA pH dipstick (test code = UA pH dipstick) 7.0 See_Comment [Automate d message] The system which generated this result transmitted reference range: 6.5. The reference range was not used to interpret this result as normal/abnormal. UA protein dipstick (test code = UA protein dipstick) negative neg UA urobiliniogen dipstick (test code = UA urobiliniogen dipstick) 0.2 mg/dL norm UA nitrite dipstick (test code = UA nitrite dipstick) negative neg UA leukocyte esterase dipstick (test code = UA leukocyte esterase dipstick) negative negative UA WBC (test code = UA WBC) 2-5 0-2 UA RBC (test code = UA RBC) 0-2 0-2 UA epithelial cells (test code = UA epithelial cells) 2-5 0-2 UA bacteria (test code = UA bacteria) few none performing lab: (test code = performing lab:) [facility]- MRI L-SPINE W/O [id number] 09:11:00 [facility] 1960 Sex: F Patient Name: ESTEFANY BEARD Unit No: [id number] EXAMS: CPT CODE: [id number] MRI L-SPINE W/O CONT [id number] TECHNIQUE: Multiplanar, multisequence MRI examination performed of the lumbar spine without intravenous contrast material. COMPARISON: MR dated 11/23/2014 FINDINGS: Five lumbar type vertebra are assumed. Alignment: Within normal limits Bone Lesion: A 5 mm hypointense lesion within the L2 vertebral body is noted to the right of midline extending to the inferior endplate, likely a Schmorl's node. Fracture: None present. Paraspinal Soft Tissues: Unremarkable. Conus Medullaris: Termination at L1 level. Morphology is normal. L1/2: Disc desiccation without significant bulge or herniation. No foraminal or central canal stenosis. L2/3: A disc bulge is present with a large rightparacentral disc extrusion measuring 7 mm in AP dimension with 20 mm of caudal migration. The extrusion severely narrows the right lateral recess, impinging the right L3 nerve. Bilateral facet hypertrophy and ligamentum flavum thickening. There is moderate central canal stenosis as well as moderateto severe left, mild right foraminal stenosis. L3/4: Laminectomy changes are present. A disc bulge is present with a large left paracentral disc extrusion measuring 6 mm in AP dimension, severely narrowing the left lateral recess and likely impinging the left L4 nerve. The extrusion is contiguous with a right paracentral disc extrusion described above. There is moderate to severe left, mild rightforaminal stenosis. L4/5: Laminectomy changes are present with [...] spine with large disc extrusions as described. [facility] NAME: ESTEFANY BEARD [address] [facility] PHYS: Howard Downs MD : 1960 AGE: 60 SEX: F [place], [place] [address] LOC: Y.MRI PHONE #: [phone] EXAM DATE: 06/25/2021 STATUS: DEP CLI FAX #: [phone] RAD #:D/C DT PAGE 1 Signed Report (CONTINUED) Patient Name: ESTEFANY BEARD Unit No: [id number]: CPT CODE: [id number] MRI L-SPINE W/O CONT 93852 (Continued) at 0911 Reported and signed by: Dallas Cortes M.D. CC: Melody Montes De Oca MD; aRfael Yao M.D. Technologist: Trinidad Prieto, RT(R) Transcribed D/ (910) Alyssa [facility] NAME: ESTEFANY BEARD[address] PHYS: Howard Downs MD : 1960 AGE: 60 SEX: F [place] [address] : Y.MRI PHONE #: [phone] EXAM DATE: 06/25/2021 STATUS: DEP CLI FAX #: [phone] RAD #: D/C DT PAGE 2 Signed Report Patient Name: ESTEFANY BEARD Unit No: [id number] EXAMS: CPT CODE: [id number] MRI L-SPINE W/O CONT 87134 (Continued) Orig Print D/T: S: 06/26/2021 (913) [facility] NAME: JR,SHERI [address] PHYS: Howard Downs MD : 1960 AGE: 60 SEX: F [place] [address] LOC: Y.MRI PHONE #: [phone] EXAM DATE: 06/25/2021 STATUS: DEP CLI FAX #: [phone] RAD #: D/C DT PAGE 3 Signed Report- MRI PELVIS W/O [id number] 13:37:00 [facility] 1960 Sex: F Patient Name: ESTEFANY BEARD Unit No: [id number] EXAMS: CPT CODE: [id number] MRI PELVIS W/O CONT 97855 TECHNIQUE: Multiplanar, multisequence MRI of the pelvis without contrast. COMPARISON: None available. FINDINGS: No acute fracture is visualized. Bone marrow signal is within [...] left gluteus medius tendon is also noted measuring 2.2 cm transversely with mild associated muscle atrophy. Lower lumbar disc degeneration facet hypertrophy are partially visualized. The sacroiliac joints are within normal limits. No significant intrapelvic abnormal ity. IMPRESSION: 1. No acute findings of the pelvis. 2. Suspected tear of the right superior labrumas well as mild/moderate right hip cartilage loss.. 3. High-grade tearing of the right gluteus medius and minimus tendons as described. at 1337 Reported and signed by: Dallas Cortes M.D. CC: Melody Montes De Oca MD Technologist: Val Jimenez(R) Transcribed D/ (1334) DulceR.SLJ [facility] NAME: ESTEFANY BEARD[address] PHYS: PATSilvino - Melody Montes De Oca MD : 1960 AGE: 60SEX: F [place] [address] LOC: Y.MRI PHONE #: [phone] EXAM DATE: 06/09/2021 STATUS: REG CLI FAX #: [phone] RAD #: D/C DT PAGE 1 Signed Report Patient Name: ESTEFANY BEARD Unit No: [id number] EXAMS: CPT CODE: [id number] MRI PELVIS W/O CONT 81155 (Continued) Orig Print D/T: S: 06/09/2021 (1340) [facility] NAME: JRESTEFANY LANG[address] PHYS: PATAN. - Melody Montes De Oca MD : 1960 AGE: 60 SEX: F [place] [address] LOC: Y.MRI PHONE #: [phone] EXAM DATE: 06/09/2021 STATUS: REG CLI FAX #: [phone] RAD #: D/C DT PAGE 2 Signed Report Notes Date/Time Note Provider Source 2021-07-15 07:39:00 [id number] [place] [address] PATIENT NAME: ESTEFANY BEARD ADMIT DATE: 07/10/21 ACCOUNT NO: [id number] ROOM NO: AGE: 60 REPORT TYPE: OPERATIVE REPORT SEX: F ADMITTING PHYSICIAN: ATTENDING PHYSICIAN:Howard Yao MD OPERATION DATE: 07/10/2021 ADDENDUM TO THE OPERATIVE REPORT: Confirmation #[id number], DID #[id number]. PROCEDURE PERFORMED: The patient had recurrent disk herniation, removed with redo decompression bilaterally at the L3-L4 interval extending to the L2-L3 interval where laminectomy, facetectomy, and foraminotomies were carried out of L3 and of L2 to allow complete decompression of the nerve roots and removal of the disk fragments. The laminectomies were carried out of L2 and L3 with redo decompressions carried out at the L3-L4 interval bilaterally with removal of disk bilaterally. Dictated By: Howard Yao MD WT: OP:LAMAR/HILDA/CHRISTINE Conf#: [id number]/DID#: [id number] Authenticated by Howard Yao MD On 07/17/2021 02:47:34 PM at 0247 PATIENT NAME: ESTEFANY BEARD [facility] 2021-07-15 07:38:00 [id number] [place] [address] PATIENT NAME: ESTEFANY BEARD ADMIT DATE: 07/10/21 ACCOUNT NO: [id number] ROOM NO: AGE: 60 REPORT TYPE: OPERATIVE REPORT SEX: F ADMITTING PHYSICIAN: ATTENDING PHYSICIAN:Howard Yao MD OPERATION DATE: 07/10/2021 PREADMISSION DIAGNOSES: Large herniated disk, L3-L4 with superior extrusion to L2-L3 with severe right lateral recess narrowing compressing right L2 and L3 nerve roots, as well as a left paracentral protrusion at L3-L4. POSTADMISSION DIAGNOSES: Large herniated disk, L3-L4 with superior extrusion to L2-L3 with severe right lateral recess narrowing compressing right L2 and L3 nerve roots, as well as a left paracentral protrusion at L3-L4. PROCEDURE PERFORMED: Laminectomy, facetectomies, and foraminotomies of L2 and L3 with redo decompressions bilaterally at L3-L4. SURGEON: Howard Yao MD. BROADCAST ENGINEER: FABIENNE Conn. The skilled assistance of FABIENNE Conn was necessary during this complex spinal procedure. He assisted with every aspect of the operation including but not limited to, proper and safe positioning of the patient, obtaining adequate surgical exposure, manipulation of the surgical instruments, the delicate task of providing suction to the surgical wound immediately adjacent to the spinal cord and neural elements, the delicate task of retraction of the soft tissues including muscles, trachea, and esophagus for adequate surgical exposure, the continual process of hemostasis during the procedure itself in addition to surgical wound closure and removal of patient form the operating room bed safely and returning him to the hospital bed. His assistance allowed me to perform the most sensitive in technical portions of this operation using four well trained hands, thus enhancing patient safety. The extremely technical portions of this procedure would not be possible without the help of the skilled mechanic assistant familiar with the procedure who is also capable of performing the aforementioned tasks and who is experienced working with the neural structures. Our facility is not a teaching hospital and as such there are no surgical residents or interns available to assist. ANESTHESIA: General endotracheal. COMPLICATIONS: None. ESTIMATED BLOOD LOSS: Minimal. DISPOSITION: The patient was taken from the operating room to recovery in stable condition. PATIENT NAME: ESTEFANY BEARD INDICATIONS FOR SURGICAL INTERVENTION: Mr. Estefany Beard is a pleasant female with a history of multiple level lumbar degenerative change and long-term low back pain and developed a severe radiculopathy with inability to function, walk, or do her activities of daily living. The patient was having a hard time getting out of bed, standing, walking, or doing any activities of daily living. She had been seen and evaluated, tried the medicines, was unable to do exercises secondary to the dysfunction and pain, and underwent an MRI. The MRI revealed a large disk herniation to the right at L3-L4 and L2-L3 with the superior sequestration severely compressing the right L2 and L3 nerve roots, consistent with the patient's weakness and inability to function. The patient had post-laminectomy changes of the lower disk in the back. It was discussed with the patient at length and her , her options for management including further medicines, exercise, injections, or surgical intervention. From a surgical intervention perspective, a surgical decompression was discussed including the procedure, risks, benefits, complications, and potential for reoccurrence of the disk herniation, post-laminectomy instability requiring a fusion, the severity of the degenerative change was discussed. Because of her continued ongoing symptoms, the patient elected to proceed forward with surgical intervention. She understood the procedure, risks, benefits, complications, and expected recovery. OPERATIVE PROCEDURE IN DETAIL: The patient was given appropriate perioperative antibiotics and 10 mg of Decadron. She was taken to the operating room, where she was placed under general endotracheal anesthesia, positioned with her neck in a neutral position, upper extremities well padded, and her pulses intact in the lower extremities. Needle localization was carried out. Her previous incision was marked. Compression was prepped and draped. The incision was carried down through the skin and subcutaneous tissue, down to the lamina. The lamina of L3 and the lamina of L2 were identified and the L3-L4 interval and L4-L5 intervals were identified and confirmed radiographically. A central decompression was then carried out redoing the decompression at the L3-L4 intervals bilaterally. The patient was noted to have previous scar tissue from the previous surgery. The dissection was carried through the lamina of L3 and then through the lamina of L2 proximally and distally. A recurrent disk herniation went from the L2 to the L3 interval distally on the right hand side narrowing the right lateral recess compressing the right L2 and the right L3 nerve roots. The redo decompression had to be carried out because it extended proximally from the L3-L4 interval to the left and then proximally to the right hand side as discussed. The redo decompressions were carried out to the left at the L3-L4 and to the right at the L3-L4 interval. The decompression was carried out completely through the L2-L3 interval identifying the L2 nerve root around the pedicle and through the foramen, the L3 nerve root through the L2-L3 lateral recess around the pedicle and through the foramen, the L4 nerve root was dissected free through the L3-L4 lateral recess around the pedicle and through the foramen. This was done without complication, but requiring extensive dissection to the right at L2-L3 and at L3-L4. The large superiorly sequestered fragment of disk was removed from where it was compressing the L2 and the L3 nerve roots and at the L3-L4 interval to the left-hand side. The recurrent disk herniation was removed at the L3-L4 interval removing the large disk fragment compressing the L3 and the L4 nerve roots to the left-hand side. Thorough irrigation and hemostasis was carried out. Each of the decompressive sites were inspected. From the right, multiple large fragments of disk had been removed. The area was inspected to ensure all loose and free fragments were removed. Irrigation and hemostasis once again carried out. Two medium Hemovacs were PATIENT NAME: ESTEFANY BEARD [facility] placed. The fascia was closed using interrupted #1 Vicryl, subcutaneous tissue with 2-0 Vicryl, skin with 3-0 Vicryl. Steri-Strips and sterile dressing were applied. The patient was taken from the operating room to recovery room in stable condition. POSTOPERATIVE PLAN: To be up and ambulatory, begin on a walking and exercise program. Given general precautions for bending, lifting, twisting, turning, bathing, and wound care instructions were given. The patient is to return back to clinic to follow up in 3 weeks. DISCHARGE MEDICATIONS: Include pain medicine, muscle relaxer, steroid, and antibiotic. The patient was to call the office with any problems or difficulties post the time of discharge to home. The intraoperative findings were discussed with the patient and the patient's family. CORRECTED 07/15/2021 [id number] Dictated By: Howard Yao MD WT: OP:LAMAR/HILDA/CHRISTINE Conf#: [id number]/DID#: [id number] Authenticated by Howard Yao MD On 07/17/2021 02:48:45 PM at 0248 PATIENT NAME: ESTEFANY BEARD [facility] 2021-07-11 10:43:00 [facility] Clinical Note REPORT#:[id number] REPORT STATUS: Signed DATE:07/11/21 TIME: 1043 PATIENT: ESTEFANY BEARD UNIT #: [id number] [facility]GE: 60 SEX: F ATTEND: Howard Yao MD ADM AUTHOR: Eli Herrera MD * ALL edits or amendments must be made on the electronic/computer document * Clinical Note Note: Prior Events/Overnight: Uneventful. Chief Complaint: No significant complaints. ROS: No Nausea/Vomiting/Diarrhea. No Cough/Dyspnea No Rash/ulcers No Chest pain/Dysuria Vital Signs: Date Time Temp Pulse Resp B/P B/P Pulse O2 O2 Flow FiO2 Mean Ox Delivery Rate 07/11 0739 36.8 86 20 136/74 94.3 98 07/11 0328 36.4 82 14 154/83 107.0 98 07/11 0311 77 98 3 32 07/11 0311 98 CPAP 3 32 07/10 2228 36.3 90 14 128/72 90.4 98 07/10 2205 85 94 3 32 07/10 2035 98 Nasal 3 32 cannula 07/10 1920 Nasal 3 cannula 07/10 1857 36.5 89 14 132/73 92.9 99 07/10 1703 Nasal 3 cannula 07/10 1655 96 Nasal 3 32 cannula 07/10 1637 37.1 93 17 158/76 103.2 95 Nasal 3 cannula / 1615 90 18 136/59 100 Nasal 3 cannula 07/10 1600 90 20 158/71 99 Nasal 3 cannula 07/10 1545 90 17 135/69 97 Nasal 3 cannula 07/10 1530 82 15 141/63 99 Nasal 3 cannula 07/10 1515 84 15 140/66 100 Nasal 3 cannula 07/10 1505 36.6 83 12 133/62 100 Nasal 3 cannula 07/10 1500 36.6 83 13 152/65 100 Nasal 3 cannula 07/10 1445 87 21 163/72 98 Nasal 3 cannula 07/10 1430 104 20 178/84 95 Nasal 3 cannula 07/10 1420 104 14 186/86 96 Simple 6 mask 07/10 1415 87 14 128/64 95 Simple 6 mask 07/10 1403 Simple 6 mask 07/10 1403 36.6 88 16 161/81 97 Simple 6 mask Objective Gen: Alert, oriented, in No significant discomfort Neck: No Masses, No Thyromegaly- CV: Regular Rate Rhythm / Edema- no significant Resp: Clear To Ascultation / Normal Respiratory Effort ABD: NonTender / no Masses Bowel sounds positive MS/Skin: No Cyanosis / No nodules / +Ankle Dp/PF / nl capillary refill of toes. Other: Labs/X-ray: Laboratory Tests 07/11 Chemistry Sodium (136 - 145 mmol/L) 136 Potassium (3.5 - 5.1 mmol/L) 4.7 Chloride (98 - 107 mmol/L) 100.0 Carbon Dioxide (21 - 32 mmol/L) 27.6 BUN (7 - 18 mg/dL) 14 Creatinine (0.55 - 1.30 mg/dL) 0.75 Glomerular Filtr Rate (>60) 79.1 Glucose (70 - 110 mg/dL) 160 H POC Glucose (60 - 125 mg/dL) 161 H 213 H Calcium (8.2 - 10.1 mg/dL) 8.4 24 hour I O ending at 0700: 07/11 0700 07/10 1900 Intake Total 700.00 100.00 Output Total 620 30 Balance 80.00 70.00 Intake, IV 700.00 100.00 Intake, Oral 0 Output, 70 30 Drainage Output, Urine 550 Assessment Plan 1.Anemia of Acute blood loss- stable 2.S/PLumbar laminectomy discectomy L2 to L3, L3 to L4 -.acute pain control. DVT prophylaxis as per 3.Hypertension- follow BP and hold RXs if SBP < 120 4.NIDDM stable 5.KALYN stable 6.Ok to be discharged home today Eli Herrera M.D. Thank you! at 1047 RPT #:[id number] [facility] 07:21:00 [facility] Discharge Summary REPORT#:[id number] REPORT STATUS: Signed DATE:07/11/21 TIME: 720 PATIENT: ESTEFANY BEARD UNIT #: [id number] ROOM/BED: : 61 AGE: 60 SEX: F ATTEND: Howard Yao MD ADM AUTHOR: Norm Triana * ALL edits or amendments must be made on the electronic/computer document * General Information Discharge date: 07/11/21 Hospital course: Surgeon: MD Najma Forensic Chemist: JERRY Triana Preadmission Diagnosis: Lumbar Radiculopathy Postadmission Diagnosis: Lumbar Radiculopathy Procedure Preformed: Lumbar Laminectomy and redo decompressions L2-3 and L3-4 Significant Findings: None Complications: None The patient was taken from the OR to the Recovery room in stable condition Hospital Course: The patient was admitted to the hospital for the aforementioned procedure. Postoperative course was unremarkable. The patient was up and ambulatory, taking well a regular diet and voiding without difficulty. Labs were stable. Incision was clean and dry. Patient was to be discharged home and begin a walking exercise program. Patient was given general precautions for bending, lifting, twisting and turning. Infection and neurological warnings were given. The patient was given instructions for bathing, wound care and to return to clinic for follow up in 3 weeks. Discharge medications include pain medicine, muscle relaxers, steroids and antibiotics. The patient was to call the office with any problems or difficulties post the time of discharge to home. Intraoperative findings and expected outcome were discussed. The patient understood each of these things at the time of discharge to home. Med Rec Med Rec Discharge meds: Continue taking these medications: ESCITALOPRAM (LEXAPRO) 20 MG TAB 20 MILLIGRAM ORAL DAILY. TELMISARTAN/HCTZ (MICARDIS HCT 80/12.5 MG) 80 MG-12.5 MG TAB 1 TABLET ORAL DAILY. metFORMIN (GLUCOPHAGE) 500 MG TAB 500 MILLIGRAM ORAL DAILY. [CITRACAL ] 500 MG 500 MILLIGRAM ORAL DAILY. ACETAMINOPHEN/CODEINE (TYLENOL WITH CODEINE #4 300/60 MG) 300 MG-60 MG TAB 1 TABLET ORAL EVERY 8 HR NEEDED. as needed for PAIN MULTIVITAMIN (MULTIPLE VITAMIN) 1 TAB TAB 1 TABLET ORAL DAILY. Start taking the following new medications: CEPHALEXIN (KEFLEX) 500 MG CAP 500 MILLIGRAM ORAL EVERY 6 HOURS. Qty = 8 No Refills methylPREDNISolone (MEDROL 4 MG DOSEPAK) 4 MG TAB.DS.PK 4 MILLIGRAM ORAL DIRECTED. Qty = 1 No Refills tiZANidine (ZANAFLEX) 4 MG TAB 4 MILLIGRAM ORAL EVERY 8 HR NEEDED. as needed for MUSCLE SPASMS Qty = 30 No Refills Discharge Instructions Discharge Instructions Additional Discharge Routines: None at 0722 at 1533 RPT #:[id number] END OF REPORT [facility] 2021-07-11 07:18:00 [facility] ([facility]) Clinical Note REPORT#:[id number] REPORT STATUS: Signed DATE:07/11/21 TIME: 717 PATIENT: ESTEFANY BEARD UNIT #: [id number] ROOM/BED: : 61 AGE: 60 SEX: F ATTEND: Howard Yao MD ADM AUTHOR: Norm Triana * ALL edits or amendments must be made on the electronic/computer document * Clinical Note Note: Patient doing well. Afebrile. Vitals stable. Ambulating well. Laboratory Tests 07/11 07/11 07/10 07/10 0517 0335 2059 1017 Chemistry Sodium (136 - 145 mmol/L) 136 Potassium (3.5 - 5.1 mmol/L) 4.7 Chloride (98 - 107 mmol/L) 100.0 Carbon Dioxide (21 - 32 mmol/L) 27.6 BUN (7 - 18 mg/dL) 14 Creatinine (0.55 - 1.30 mg/dL) 0.75 Glomerular Filtr Rate (>60) 79.1 Glucose (70 - 110 mg/dL) 160 H POC Glucose (60 - 125 mg/dL) 161 H 213 H 122 Calcium (8.2 - 10.1 mg/dL) 8.4 Vital Signs Date Temp Pulse Resp B/P B/P Mean Pulse Ox FiO2 07/10-07/11 97.3-98.8 77-113 12-21 128-186/59-86 90.4-107.0 94-100 32 Intake Output 07/11 0700 07/10 2300 07/10 1500 Intake Total 600.00 200.00 Output Total 20 630 Balance 580.00 -430.00 Intake, IV 600.00 200.00 Intake, Oral 0 Output, 20 80 Drainage Output, Urine 550 Exam: Neuro Intact Impression: Post Op Lumbar Laminectomy L2-L4 Plan: Ambulate with PT 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 ([facility]) Clinical Note REPORT#:[id number] REPORT STATUS: Signed DATE:07/10/21 TIME: 1740 PATIENT: ESTEFANY BEARD UNIT #: [id number] ROOM/BED: [facility] : 61 AGE: 60 SEX: F ATTEND: Howard Yao MD ADM AUTHOR: Eli Herrera MD * ALL edits or amendments must be made on the electronic/computer document * Clinical Note Note: Internal Medicine Eli Herrera MD (office: [phone]) Internal Medicine Consult at request of: Dr. Howard Yao Chief complaint: back pain HPI: 60yo Fis now s/p Lumbar laminectomy discectomy L2 to L3, L3 to L4 by Dr. Yao. MS. Beard relates years of progressive back pain (recently severe), worse with activity, and with restricted motion at times. She has failed conservative management. Comorbidities: see below PmHx:.Sleep apnea, hypertension, type 2 diabetes, osteopenia, anxiety ALLERGY: Allergies Allergy Severity Reaction Updated Coded latex Mild RASH 07/02/21 No Known Drug Allergies Unknown 07/02/21 Home medications: Home Medications: ESCITALOPRAM (LEXAPRO) 20 MG PO DAILY TELMISARTAN/HCTZ (MICARDIS HCT 80/12.5 MG) 1 TAB PO DAILY metFORMIN (GLUCOPHAGE) 500 MG PO DAILY [CITRACAL ] 500 MG PO DAILY ACETAMINOPHEN/CODEINE (TYLENOL WITH CODEINE #4 300/60 MG) 1 TAB PO Q8H PRN PRN PAIN MULTIVITAMIN (MULTIPLE VITAMIN) 1 TAB PO DAILY SgHx: .ankle, lumbar laminectomy, right partial knee replacement SHx: Tob: none FHx: No significant hx of DVT/PE Alcohol: none Drugs: none Lives: with Spouse and son ROS: [X] all systems reviewed and negative except- [ ] Con: Fever/Wt loss [ ] CV: cpain/edema [ ] Pul: .cough/SOB [ ] GI: hematemesis/diarrhea [ ] : dysuria or hematuria [X] MS: back pain [ ] Neuro: headaches/loss sensation [ ] Heme: adenopathy/Ecchymosis Vitals: Vital Signs: Date Time Temp Pulse Resp B/P B/P Pulse O2 O2 Flow FiO2 Mean Ox Delivery Rate 07/108 36.3 90 14 128/72 90.4 98 07/105 98 Nasal 3 32 cannula 05/ 1920 Nasal 3 cannula 05/26 1857 36.5 89 14 132/73 92.9 99 05/ 1703 Nasal 3 cannula 05/26 1655 96 Nasal 3 32 cannula 05/26 1637 37.1 93 17 158/76 103.2 95 Nasal 3 cannula 05/26 1615 90 18 136/59 100 Nasal 3 cannula 05/26 1600 90 20 158/71 99 Nasal 3 cannula 05/26 1545 90 17 135/69 97 Nasal 3 cannula 05/26 1530 82 15 141/63 99 Nasal 3 cannula 05/26 1515 84 15 140/66 100 Nasal 3 cannula 05/26 1505 36.6 83 12 133/62 100 Nasal 3 cannula 05/26 1500 36.6 83 13 152/65 100 Nasal 3 cannula 05/26 1445 87 21 163/72 98 Nasal 3 cannula 05/26 1430 104 20 178/84 95 Nasal 3 cannula 05/26 1420 104 14 186/86 96 Simple 6 mask 05/ 1415 87 14 128/64 95 Simple 6 mask 05/26 1403 Simple 6 mask 05/26 1403 36.6 88 16 161/81 97 Simple 6 mask 05/26 0945 36.7 113 16 183/81 97 Room air Gen: Alert, in mild discomfort, nl nutrition. EYE: Nl lids Conjunctiva. ENT: Nl ears nose, nl lips. Neck: Supple, nl thyroid, no mases. CV: Regular rate rhythm, no heave or significant murmur. [place]-none Feet/toes normal temperature RESP: Clear to auscultation, normal respiratory effort ABD: Soft, nondistended, tender at incisional site. MS: No sign of compartment syndrome, lumbar dressing dry and intact NEURO: Nonfocal, grossly normal sensation of LE, +ankle DF/PF PSY: Normal insight, normal mood, oriented Preop Labs (07/02/2021): CBC: Hgb 14.2, Plt 329, CHEM: Na 134, K 4.1, Cr 0.92, (eGFR 62.5%) Ekg: Sinus tachycardia at 102 bpm (medium to high risk of complications or morbidity) (major surgery) (IV sedative , meds) Assessment Plan 1.Anemia of Acute blood loss- will recheck tomorrow 2.S/PLumbar laminectomy discectomy L2 to L3, L3 to L4 -.acute pain control. DVT prophylaxis as per 3.Hypertension- follow BP and hold RXs if SBP < 120 4.NIDDM add sliding scale coverage plus resume home metformin 5.KALYN resume home c-pap machine Eli Herrera M.D. Thank you! at 4674 RPT #:[id number] END OF REPORT [facility] 2021-07-10 14:25:00 [facility] ([facility]) Brief Op Note REPORT#:[id number] REPORT STATUS: Signed DATE:07/10/21 TIME: 1424 PATIENT: ESTEFANY BEARD UNIT #: [id number] ROOM/BED: : 61 AGE: 60 SEX: F ATTEND: Howard Yao MD ADM AUTHOR: Howard Yao MD * ALL edits or amendments must be made on the electronic/computer document * Op/Inv Proc Note - Brief Pre-procedure diagnosis: Lumbar Radiculopathy Post-procedure diagnosis: same as pre procedure dx Procedures performed: Laminectomy and redo decompression L2-3 and L3-4 Primary Surgeon: Najma Forensic Chemist(s): Kamilah Findings: Same as above Complications: none Estimated blood loss in ml's: 12 ml Specimens removed/altered: none Drain(s): Medium Hemovac at 1426 RPT #:[id number] END OF REPORT [facility]ATO 2021-07-02 11:59:00 [id number] [facility] [address] [place] [address] PATIENT NAME: ESTEFANY BEARD ADMIT DATE: ACCOUNT NO: [id number] ROOM NO: AGE: 60 REPORT TYPE: ELECTROCARDIOGRAM SEX: F ADMITTING PHYSICIAN: ATTENDING PHYSICIAN:Howard Yao MD Order: [id number] Test Reason : PRE-OP CLEARANCE HTN Test Date/Time Stamp: WedJul 02 2021 11:59:14 Blood Pressure : / mmHG Vent. Rate : 102 BPM Atrial Rate : 102 BPM P-R Int : 168 ms QRS Dur : 076 ms QT Int : 342 ms P-R-T Axes : 045 -06 050 degrees QTc Int : 445 ms Sinus tachycardia Otherwise normal ECG When compared with ECG of 10-JUN-2016 10:10, No significant change was found Confirmed by GARY RIOS MD ([id number]) on 07/04/2021 6:59:42 PM Referred By: Howard Yao Confirmed by:GARY RIOS MD PATIENT NAME: ESTEFANY BEARD [facility]
[2024-01-12] MEDS ORDERED: HYDROMORPHONE HCL 1 MG/ML INJ ONE ×2 (16:23→18:11)
[2024-01-12] MEDS ORDERED: METHOCARBAMOL 1,000 MG/10 ML VIAL ONE (17:24)
[2024-01-12] MEDS ORDERED: dexAMETHasone 10 MG/ML VIAL ONE (17:24)
[2024-01-12] MEDS ORDERED: KETOROLAC 30 MG/ML INJ ONE (17:24)
[2024-01-12] MEDS ORDERED: NA CHLORIDE 0.9% 100 ML ONE (17:24)
--- NOTE | 2024-01-12 18:37 | EDPHYS ---
Physician Documentation [facility] Name: Estefany Beard Age: 63 yrs Sex: Female : 1960 Arrival Date: 01/12/2024 Time: 15:57 Bed 9 Private MD: ED Physician Raffy Jacome HPI: 01/11 22:41 This 63 yrs old Female presents to ER via EMS with complaints of Back Pain, Back Injury.kb 22:41 Patient is a 63-year-old female who presents for low back pain to lumbar area that kb radiates to left buttock and hip. States she was cleaning the house and twisted the wrong way. Denies injury or trauma. States she has had this happen several times in the past. Reports 4 previous surgeries to the lumbar area. Denies numbness, decree sensation, bowel or bladder issues.. Historical: - Allergies: 16:02 No Known Allergies; ll1 - PMHx: 16:02 Diabetes - NIDDM; Hypertension; ll1 16:15 nerve damage; ll1 - PSHx: 16:15 back surgery; ll1 - Immunization history:: Adult Immunizations up to date. - Infectious Disease History:: Denies. - Social history:: Smoking status: Patient denies any tobacco usage or history of. ROS: 18:35 Constitutional: As per HPI kb Exam: 22:40 Constitutional: This is a well developed, well nourished patient who is awake, alert, kb and in no acute distress. Head/Face: Normocephalic, atraumatic. ENT: Moist Mucous membranes Cardiovascular: Regular rate Respiratory: Respirations even and unlabored. No increased work of breathing. Talking in full sentences Skin: Warm, dry with normal turgor. Normal color. MS/ Extremity: Pulses equal, no cyanosis. Neurovascular intact. Full, normal range of motion. Neuro: Awake and alert, GCS 15, oriented to person, place, time, and situation. 22:40 Back: pain, that is moderate, of the lumbar area, ROM is painful, normal spinal alignment noted, 22:40 Musculoskeletal/extremity: Extremities: grossly normal except: noted in the left gluteus jose alejandro: pain, tenderness, ROM: intact in all extremities, Circulation is intact in all extremities. Sensation intact. Vital Signs: 16:28 BP 146 / 81; Pulse 75; Resp 17; Temp 98; Pulse Ox 97% on 2 lpm NC; Pain 10/10; ll1 18:17 BP 139 / 87; Pulse 76; Resp 18 S; Pulse Ox 93% on R/A; Pain 9/10; kc6 16:28 Pain Scale: Adult ll1 18:17 Pain Scale: Adult kc6 MDM: 16:01 Medical Screening Exam initiated kb 22:38 Differential diagnosis: Fracture, strain, sciatica. Data reviewed: vital signs, nurses kb notes. Test considered but Not performed: X-ray: X-ray of lumbar spine and left hip considered but patient states that this pain is similar to previous episodes and she does not think that this going to show anything. States she believes she needs an MRI and knows she cannot get that here. States she is going to call [place] [facility] to schedule an appointment.. Historians other than the Patient: Spouse/Significant Other: Spouse. Counseling: I had a detailed discussion with the patient and/or guardian regarding the historical points, exam findings, and any diagnostic results supporting the discharge/admit diagnosis, the need for outpatient follow up, a family practitioner, to return to the emergency department if symptoms worsen or persist or if there are any questions or concerns that arise at home. ED course: Upon discharge patient states she is still having pain but it is a little better than when she came in. States she knows that she just needs to take the medication and rest which will improve symptoms. States this has happened several times in the past. [place] CONTRACTS ADVISOR aware reviewed prior to prescribing Tylenol with codeine.. Administered Medications: 16:28 Drug: HYDROmorphone IVP 1 mg IVP once {Note: pain 10/10 RASS 0.} Route: IVP; Site: ll1 right antecubital; 17:35 Follow up: Response: No adverse reaction; Pain is unchanged, physician notified; RASS: kc6 Alert and Calm (0) 17:34 Drug: Ketorolac IVP 15 mg IVP once Route: IVP; Site: right antecubital; kc6 18:08 Follow up: Response: No adverse reaction; Pain is unchanged, physician notified kc6 17:35 Drug: Methocarbamol IVPB 1 grams IVPB once over 1 hrs; (mix in NS 100 mL) Route: IVPB; kc6 Infused Over: 1 hrs; Site: right antecubital; 18:08 Follow up: Response: No adverse reaction; IV Status: Completed infusion; IV Intake: kc6 100ml 17:35 Drug: Decadron - Dexamethasone IVP 10 mg IVP once Route: IVP; Site: right antecubital; kc6 18:08 Follow up: Response: No adverse reaction kc6 18:16 Drug: HYDROmorphone IVP 1 mg IVP once Route: IVP; Site: right antecubital; kc6 18:51 Follow up: Response: No adverse reaction; Pain is unchanged, physician notified; RASS: kc6 Alert and Calm (0) Disposition Summary: 01/12/24 18:36 Discharge Ordered Notes: Location: Home kb Condition: Stable kb Diagnosis - Low back pain kb Followup: kb - With: Emergency Department - When: As needed - Reason: Worsening of condition Followup: kb - With: Private Physician - When: 2 - 3 days - Reason: Recheck today's complaints, Continuance of care, Re-evaluation by your physician Discharge Instructions: - Discharge Summary Sheet kb - Chronic Back Pain, [id number] kb Forms: - Medication Reconciliation Form kb - Antibiotic Education kb - Prescription Opioid Use kb - Patient Portal Instructions kb - Leadership Thank You Letter kb Prescriptions: - acetaminophen-codeine 300-30 mg Oral tablet - take 1 tablet ORAL route every 6 hours As needed; 12 tablet; Refills: 0, kb Product Selection Permitted - Prednisone 20 mg Oral Tablet - take 1 tablet ORAL route once daily for 5 days; 5 tablet; Refills: 0, Product kb Selection Permitted - Diclofenac Sodium 75 mg Oral tablet, delayed release (enteric coated) - take 1 tablet ORAL route 2 times per day As needed; 30 tablet; Refills: 0, kb Product Selection Permitted - orphenadrine citrate 100 mg Oral Tablet Sustained Release - take 1 tablet ORAL route 2 times per day As needed; 20 tablet; Refills: 0, kb Product Selection Permitted Signatures: Lydia Reyez FNP-C FNP-Macey Deshpande RN RN ll1 Karli Padron RN RN kc6
--- NOTE | 2024-01-12 18:37 | ER ---
Nurse's Notes [facility] Name: Estefany Beard Age: 63 yrs Sex: Female : 1960 Arrival Date: 01/12/2024 Time: 15:57 Bed 9 Private MD: Diagnosis: Low back pain Presentation: 01/11 16:02 Method Of Arrival: EMS ll1 16:14 Chief complaint: Patient states: Back pain 11/24 EMS states: 20 g R AC, fentanyl 75 mcg ll1 1st and then 25 mcg IV given 2nd. BP initially elevated 200's systolic. Coronavirus screen: Client denies travel out of the [place] in the last 14 days. At this time, the client does not indicate any symptoms associated with coronavirus-19. Ebola Screen: Patient denies travel to an Ebola-affected area in the 21 days before illness onset. Initial Sepsis Screen: Does the patient meet any 2 criteria? No. Patient's initial sepsis screen is negative. Does the patient have a suspected source of infection? No. Patient's initial sepsis screen is negative. Risk Assessment: Do you want to hurt yourself or someone else? Patient reports no desire to harm self or others. Onset of symptoms was January 12, 2024. 16:14 Acuity: JACE 3 ll1 Triage Assessment: 16:02 General: Appears uncomfortable, Behavior is calm, cooperative, appropriate for age. ll1 Pain: Complains of pain in back Pain currently is 10 out of 10 on a pain scale. Quality of pain is described as aching, sharp. Musculoskeletal: Reports pain in back. Historical: - Allergies: 16:02 No Known Allergies; ll1 - PMHx: 16:02 Diabetes - NIDDM; Hypertension; ll1 16:15 nerve damage; ll1 - PSHx: 16:15 back surgery; ll1 - Immunization history:: Adult Immunizations up to date. - Infectious Disease History:: Denies. - Social history:: Smoking status: Patient denies any tobacco usage or history of. Screenin:35 [facility] ED Fall Risk Assessment (Adult) History of falling in the last 3 months, kc6 including since admission No falls in past 3 months (0 pts) Confusion or Disorientation No (0 pts) Intoxicated or Sedated No (0 pts) Impaired Gait No (0 pts) Mobility Assist Device Used No (0 pt) Altered Elimination No (0 pt) Score/Fall Risk Level 0 - 2 = Low Risk Oriented to surroundings, Maintained a safe environment. Abuse screen: Denies threats or abuse. Denies injuries from another. Nutritional screening: No deficits noted. Tuberculosis screening: No symptoms or risk factors identified. Assessment: 17:35 General: Appears in no apparent distress. uncomfortable, well groomed, well developed, kc6 Behavior is calm, cooperative, appropriate for age. Pain: Complains of pain in back. Neuro: Level of Consciousness is awake, alert, obeys commands, Oriented to person, place, time, situation, Appropriate for age. Cardiovascular: Capillary refill < 3 seconds. Respiratory: Airway is patent Trachea midline Respiratory effort is even, unlabored, Respiratory pattern is regular, symmetrical. GI: No signs and/or symptoms were reported involving the gastrointestinal system. : No signs and/or symptoms were reported regarding the genitourinary system. EENT: No signs and/or symptoms were reported regarding the EENT system. Derm: No signs and/or symptoms reported regarding the dermatologic system. Skin is intact, is healthy with good turgor, Skin is pink, warm \T\ dry. Musculoskeletal: Circulation, motion, and sensation intact. Capillary refill < 3 seconds, Range of motion: intact in all extremities. 18:17 Reassessment: Patient appears in no apparent distress at this time. No changes from kc6 previously documented assessment. Patient and/or family updated on plan of care and expected duration. Pain level reassessed. Patient is alert, oriented x 3, equal unlabored respirations, skin warm/dry/pink. Patient states symptoms have not improved. Vital Signs: 16:28 BP 146 / 81; Pulse 75; Resp 17; Temp 98; Pulse Ox 97% on 2 lpm NC; Pain 10/10; ll1 18:17 BP 139 / 87; Pulse 76; Resp 18 S; Pulse Ox 93% on R/A; Pain 9/10; kc6 16:28 Pain Scale: Adult ll1 18:17 Pain Scale: Adult kc6 ED Course: 16:00 Patient arrived in ED. kb 16:01 Lydia Reyez FNP-C is [facility]. kb 16:01 Raffy Jacome MD is Attending Physician. kb 16:02 Arm band placed on Patient placed in an exam room, on a stretcher. ll1 16:02 Maintain EMS IV. Dressing intact. Good blood return noted. Site clean \T\ dry. Gauge \T\ ll 1 site: 20 G R AC. 16:15 Triage completed. ll1 17:10 Karli Padron, RN is Primary Nurse. kc6 17:35 Patient has correct armband on for positive identification. Bed in low position. Call kc6 light in reach. Side rails up X2. Adult w/ patient. Pulse ox on. NIBP on. Door closed. Noise minimized. Lights dimmed. Warm blanket given. Pillow given. 17:35 Patient maintains SpO2 saturation greater than 95% on room air. kc6 18:51 No provider procedures requiring assistance completed. IV discontinued, intact, kc6 bleeding controlled, No redness/swelling at site. Pressure dressing applied. Administered Medications: 16:28 Drug: HYDROmorphone IVP 1 mg IVP once {Note: pain 10/10 RASS 0.} Route: IVP; Site: ll1 right antecubital; 17:35 Follow up: Response: No adverse reaction; Pain is unchanged, physician notified; RASS: kc6 Alert and Calm (0) 17:34 Drug: Ketorolac IVP 15 mg IVP once Route: IVP; Site: right antecubital; kc6 18:08 Follow up: Response: No adverse reaction; Pain is unchanged, physician notified kc6 17:35 Drug: Methocarbamol IVPB 1 grams IVPB once over 1 hrs; (mix in NS 100 mL) Route: IVPB; kc6 Infused Over: 1 hrs; Site: right antecubital; 18:08 Follow up: Response: No adverse reaction; IV Status: Completed infusion; IV Intake: kc6 100ml 17:35 Drug: Decadron - Dexamethasone IVP 10 mg IVP once Route: IVP; Site: right antecubital; kc6 18:08 Follow up: Response: No adverse reaction kc6 18:16 Drug: HYDROmorphone IVP 1 mg IVP once Route: IVP; Site: right antecubital; kc6 18:51 Follow up: Response: No adverse reaction; Pain is unchanged, physician notified; RASS: kc6 Alert and Calm (0) Medication: 18:52 VIS not applicable for this client. kc6 Intake: 18:08 IV: 100ml; Total: 100ml. kc6 Outcome: 18:36 Discharge ordered by MD. navarro 18:51 Discharged to home via wheelchair, with significant other, kc6 18:51 Condition: good 18:51 Discharge instructions given to patient, significant other, Instructed on discharge instructions, follow up and referral plans. no drinking with medication, no driving heavy equipment, medication usage, Demonstrated understanding of instructions, follow-up care, medications, Prescriptions given X 4, 18:52 Patient left the ED. kc6 Signatures: Lydia Reyez, ADDRESSOGRAPH OPERATOR-C TEA-Macey Deshpande, RN RN ll1 Karli Padron RN RN kc6
[2024-01-12 20:16] VITALS: TEMP 98
[2024-01-12 20:17] VITALS: BP 139/87; O2SAT 93
== END 2024-01-12 18:52 | disposition home or self-care (01) ==
LOC: ER 15:57
DX: M54.50 Low back pain, unspecified (principal); E11.9 Type 2 diabetes mellitus without complications; I10 Essential (primary) hypertension
CPT/HCPCS: 96365; 96375; 99284; J1100; J1171 ×2; J2800

== ENCOUNTER 2024-02-01 10:31 | Emergency (ER) | payer OTHER ==
--- OUTSIDE RECORDS SUMMARY | 2024-02-01 10:36 | XMS REPORT | Continuity of Care Document ---
Author Name Unknown Address [address] [facility] [address] [place] [id number] [facility] thconnect Address [address] [facility] [address] [place] [address] Care Team Providers Care Baton Teacher Name Role Phone Howard Yao Attending Clinician Unavailab le GC_GCBZW_Kadiyala_S Attending Clinician Unavaila cari TORRES_Boni_Nitesh Attending Clinician Unavail able Howard Yao Attending Clinician [phone] Melody Montes De Oca Attending Clinician Unavailable Howard Yao Admitting Clinician Unavailab le GC_GCBZW_Kadiyala_S Admitting Clinician Unavaila cari TORRES_Sherice Admitting Clinician Unavail able Melody Montes De Oca Admitting Clinician Unavailable Payers Payer Name Policy Type Policy Number Effective Date Expirati on Date Source [employer] - CHOICE (POS II) [id number] 2015 00:00:00 [employer] (POS) [id number] 2002 00:00:00 Problems Condition Name Condition Details [...] on Diagnostic Imaging of Breast Problem Active 2021-02 00:00: 00 [facility] Injury of muscle [...] s DA Active U 07-02 00:00: 00 [facility] latex DA Active [place] RASH 07-02 00:00: 00 [facility] No Known Drug Allergie s DA Active U 06-11 00:00: 00 [facility] latex DA Active [place] RASH 06-11 00:00: 00 [facility] Social History Smoking [...] 40 mg-25 mg tablet RX by other [facility] 40 mg-25 mg tablet RX by [...] 1 [facility] hydrocodone 10 [...] Medicin e meloxicam 15 mg tablet TAKE ONE PO Q D AFTER STEROIDS ARE FINISHED meloxicam 15 mg tablet TAKE ONE PO Q D AFTER STEROIDS ARE FINISHED No meloxicam 15 mg tablet TAKE ONE PO Q D AFTER STEROIDS ARE FINISHED [facility] metformin 500 mg tablet TAKE 1 TABLET BY MOUTH TWICE A DAY WITH FOOD metformin 500 mg tablet TAKE 1 TABLET BY MOUTH TWICE A DAY WITH FOOD No metformin 500 mg tablet TAKE 1 TABLET BY MOUTH TWICE A DAY WITH FOOD [facility] ondansetron HCl 4 mg tablet ondansetron HCl 4 mg tablet No ondansetro n HCl 4 mg tablet [facility] prednisone 20 mg tablet TAKE 1 TABLET BY MOUTH EVERY DAY FOR 5 DAYS prednisone 20 mg tablet TAKE 1 TABLET BY MOUTH EVERY DAY FOR 5 DAYS No prednisone 20 mg tablet TAKE 1 TABLET BY MOUTH EVERY DAY FOR 5 DAYS [facility] telmisartan 80 mg-hydrochl orothiazide 12.5 mg tablet TAKE 1 TABLET DAILY telmisartan 80 mg-hydrochl orothiazide 12.5 mg tablet TAKE 1 TABLET DAILY No telmisarta n 80 mg-hydroch lorothiazi de 12.5 mg tablet TAKE 1 TABLET DAILY [facility] tizanidine 4 mg tablet TAKE 1 TABLET BY MOUTH THREE TIMES A DAY tizanidine 4 mg tablet TAKE 1 TABLET BY MOUTH THREE TIMES A DAY No tizanidine 4 mg tablet TAKE 1 TABLET BY MOUTH THREE TIMES A DAY [facility] tramadol 50 mg tablet TAKE 1 TABLET BY MOUTH EVERY 4 TO 6 HOURS NEEDED tramadol 50 mg tablet TAKE 1 TABLET BY MOUTH EVERY 4 TO 6 HOURS NEEDED No tramadol 50 mg tablet TAKE 1 TABLET BY MOUTH EVERY 4 TO 6 HOURS NEEDED [facility] escitalopra m [...] DAY [facility] calcium calcium No calcium [facility] estradiol 0.01% (0.1 mg/gram) vaginal cream Insert [...] vaginal route at bedtime for 30 days. [facility] Fish Oil Fish Oil No Fish Oil [...] TABLET BY MOUTH THREE TIMES A DAY [facility] zinc zinc No zinc [facility] diclofenac sodium 50 mg tablet,earl yed release TAKE 1 TABLET BY MOUTH TWICE A DAY diclofenac sodium 50 mg tablet,earl yed release TAKE 1 TABLET BY MOUTH TWICE A DAY No diclofenac sodium 50 mg tablet,del ayed release TAKE 1 TABLET BY MOUTH TWICE A DAY [facility] diclofenac sodium 75 mg tablet,earl yed release TAKE 1 TABLET TWICE A DAY NEEDED diclofenac sodium 75 mg tablet,earl yed release TAKE 1 TABLET TWICE A DAY NEEDED No diclofenac sodium 75 mg tablet,del ayed release TAKE 1 TABLET TWICE A DAY NEEDED [facility] estradiol 0.01% (0.1 mg/gram) vaginal cream INSERT 0.5 G 3 TIMES A WEEK BY VAGINAL ROUTE AT BEDTIME FOR 30 DAYS. estradiol 0.01% (0.1 mg/gram) vaginal cream INSERT 0.5 G 3 TIMES A WEEK BY VAGINAL ROUTE AT BEDTIME FOR 30 DAYS. No estradiol 0.01% (0.1 mg/gram) vaginal cream INSERT 0.5 G 3 TIMES A WEEK BY VAGINAL ROUTE AT BEDTIME FOR 30 DAYS. [facility] ibandronate 150 mg tablet TAKE 1 TABLET BY MOUTH ONCE MONTHLY. ibandronate 150 mg tablet TAKE 1 TABLET BY MOUTH ONCE MONTHLY. No ibandronat e 150 mg tablet TAKE 1 TABLET BY MOUTH ONCE MONTHLY. [facility] Medrol (Laith) 4 mg tablets in a dose pack Take 1 dose pk by oral route. Medrol (Laith) 4 mg tablets in a dose pack Take 1 dose pk by oral route. No 1dose pk(s) Medrol (Laith) 4 mg tablets in a dose pack Take 1 dose pk by oral route. [facility] Mounjaro 2.5 mg/0.5 mL subcutaneou s pen injector INJECT 2.5 MG (PRE-FILLED PEN) ONCE A WEEK Mounjaro 2.5 mg/0.5 mL subcutaneou s pen injector INJECT 2.5 MG (PRE-FILLED PEN) ONCE A WEEK No Mounjaro 2.5 mg/0.5 mL subcutaneo us pen injector INJECT 2.5 MG (PRE-FILLE D PEN) ONCE A WEEK [facility] orphenadrin e citrate ER 100 mg tablet,exte nded release TAKE 1 TABLET TWICE A DAY NEEDED orphenadrin e citrate ER 100 mg tablet,exte nded release TAKE 1 TABLET TWICE A DAY NEEDED No orphenadri ne citrate ER 100 mg tablet,ext ended release TAKE 1 TABLET TWICE A DAY NEEDED [facility] acetaminoph en 300 mg-codeine 30 mg tablet TAKE 1 TABLET BY MOUTH EVERY 6 HOURS NEEDED acetaminoph en 300 mg-codeine 30 mg tablet TAKE 1 TABLET BY MOUTH EVERY 6 HOURS NEEDED No acetaminop hen 300 mg-codeine 30 mg tablet TAKE 1 TABLET BY MOUTH EVERY 6 HOURS NEEDED [facility] [...] BY MOUTH EVERY DAY AT BEDTIME NEEDED [facility] Calcium Antacid 400 mg (as carbonate 1,000 mg) chewable tablet RX by other Calcium Antacid 400 mg (as carbonate 1,000 mg) chewable tablet RX by other MD No Calcium Antacid 400 mg (as carbonate 1,000 mg) chewable tablet RX by other MD [facility] cephalexin 500 mg [...] THREE TIMES A DAY FOR 30 DAYS [facility] Immunizations Ordered Immunization Name Filled Immunization Name Date Status Comments Source influenza, injectable, quadrivalent, preservative free influenza, injectable, quadrivalent, preservative free Unknown Completed [facility] Vital Signs Vital Name Observation Time Observation Value Comments S ource Height 2024-01-24 00:00:00 61 [in_i] [facility] Body Weight 2024-01-24 00:00:00 181 [lb_av] [facility] BMI (Body Mass Index) 2024-01-24 00:00:00 34.2 kg/m2 [facility] Body Weight 2023-12-22 00:00:00 184.4 [lb_av] P [...] Date / Time Performed Performing Clinician Source RADEX SPI LUMBOSAC 2/3 VIEWS 2024-01-24 00:00:00 [facility] MRI, lumbar spine, w/o contrast 2024-01-24 00:00:00 [facility] US, breast, unilateral 2023-12-22 00:00:00 [facility] Medical MAMMO, diagnostic, digital, unilateral 2023-12-22 00:00:00 [facility] RADEX SPI LUMBOSAC 2/3 VIEWS 2021-06-25 00:00:00 [facility] MRI, lumbar spine, w/o contrast 2021-06-25 00:00:00 [facility] Mammography 2020-06-15 00:00:00 [facility] Lumbar Microdiscectomy 2020-02-16 00:00:00 [facility] Medical Colonoscopy 2019-02-15 00:00:00 [facility] Orthopedic - Knee Replacement [facility] Medical Operative Procedure on Knee [facility] Procedure on Ankle [facility] Lamine[facility] Medical Section [facility] Encounters Start Date/Time End Date/Time Encounter Type Admission Type Attending Clinicians Care Facility Care Department Encounter ID Source 2021-07-03 11:19:00 Inpatient Howard Whittaker HCATO HCATO [id number] [facility] [place] [facility] 2024-01-24 00:00:00 2024-01-24 00:00:00 FABIENNE Yao: [address] [place] [address] , Ph. [phone] [facility] - [facility] [place] - F[facility] [id number] [facility] 2023-12-22 00:00:00 2023-12-22 00:00:00 FABIENNE Mcnamara: [address] [place], [facility] [address], [place] [address] , Ph. [facility] - GC[facility]GCBZW_[facility]* [id number] [facility] 2022-11-25 00:00:00 2022-11-25 00:00:00 Outpatient GC_GCBZW_Ka diyala_S [facility] [id number] [facility] 2022-11-24 00:00:00 2022-11-24 00:00:00 Outpatient GC_GCBZW_Ka diyala_S [facility] [id number] [facility] 2021-08-01 11:15:00 2021-08-01 11:15:00 Outpatient FOG_Mathews _Vasil_MD AOSM AO [id number] [facility] 2021-08-01 00:00:00 2021-08-01 00:00:00 Outpatient Howard Yao AOSM AOSM [id number] 2021-08-01 00:00:00 2021-08-01 00:00:00 Howard Yao MD: [address] [place] [address] , Ph. [phone] [facility] [place] - [facility] [place] - [facility] [id number] [facility] 2021-07-21 02:15:00 2021-07-21 02:15:00 Outpatient FOG_Mathews _Vasil_MD AOSM AO [id number] [facility] 2021-07-18 11:52:00 2021-07-18 11:52:00 Outpatient FOG_Mathews _Vasil_MD AOSM AO [id number] [facility] 2021-07-16 02:14:00 2021-07-16 02:14:00 Outpatient FOG_Mathews _Vasil_MD AOSM AO [id number] [facility] 2021-07-10 08:31:00 2021-07-11 14:01:00 Outpatient MAG Najma Howard FOSTER OBSE [id number] [facility] [place] [facility] 2021-07-10 08:31:00 2021-07-11 14:01:00 Outpatient Howard Whittaker OBSE [id number] [facility] [place] [facility] 2021-07-10 00:00:00 2021-07-10 00:00:00 Howard Yao MD: [address] [place] [address] , Ph. [phone] [facility] [place] [facility] [place] - FOG_Surgery [id number] [facility] 2021-07-10 00:00:00 2021-07-10 00:00:00 Outpatient Najma Howard Iqbal [facility] [id number] 2021-07-02 15:39:00 2021-07-02 15:39:00 Outpatient Yao, Jack [facility] [id number] [facility] 2021-07-02 00:00:00 2021-07-02 00:00:00 Howard Yao MD: [address] [place] [address] , Ph. [phone] [facility] - [facility] [place] - FOG_[facility] [address] [place] [id number] [facility] 2021-06-25 15:52:00 2021-06-25 15:52:00 Outpatient MAG Yao, Jack HCATO RADI [id number] [facility] 2021-06-25 00:00:00 2021-06-25 00:00:00 Howard Yao MD: [address] [place] [address] , Ph. [phone] [facility] - [facility] [place] - F[facility] [place] [id number] [facility] 2021-06-09 07:26:00 2021-06-09 07:26:00 Outpatient MAG Hollyel Melody HCATO RADI [id number] [facility] Results Test Description Test Time Test Comments Results Resul t Comments Source - XR SPINE 1 V SPEC LEVEL 2021-07-11 07:[facility] 1960 Sex: F Patient Name: KARLO NORRIS Unit No: [id number] EXAMS: CPT CODE: [id number] XR SPINE 1 V SPEC LEVEL 56316 INTRAOPERATIVE LATERAL LUMBAR SPINE Film 1. A marker is posterior to L2. Film 2. Surgical instruments are posterior to L3 and L4. Film 3. A surgical instrument is posterior to L3. at 0733 Reported and signed by: Turner Stoner MD CC: Rafael Yao M.D. Technologist: FRANKI ROMERO (RT.R) Transcribed D/ (0733) BryonL [facility] NAME: JR,SHERI [address] PHYS: Howard Downs MD : 1960 AGE: 60 SEX: F [place] [address] LOC: Y.318 A PHONE #: [phone] EXAM DATE: 07/10/2021 STATUS: REG [facility] FAX #: [phone] RAD #: D/C DT PAGE 1 Signed Report Patient Name: KARLO NORRIS Unit No: [id number] EXAMS: CPT CODE: [id number] XR SPINE 1 V SPEC LEVEL 61125 (Continued) Orig Print D/T: S: 07/11/2021 (0736) [facility] NAME: JR,[address] PHYS: Howard Downs MD : 1960 AGE: 60 SEX: F [place] [address] LOC: Y.318 A PHONE #: [phone] EXAM DATE: 07/10/2021 STATUS: REG [facility] FAX #: [phone] RAD #: D/C DT PAGE 2 Signed Report [id number] 06:04:00* Test Item Value Reference Range Interpretation Comme nts GLUBED (test code = GLUBED) 161 mg/dL 60-125 H [id number] 05:17:00* Test Item Value Reference Range Interpretation Comme nts glubed (test code = glubed) 161 mg/dL 60-125 H performing lab: (test code = performing lab:) [facility] metabolic [id number] 03:35:00* Test Item Value Reference Range Interpretation [...] performing lab: (test code = performing lab:) [facility]:14[facility]* Test Item Value Reference Range Interpretation Comme nts GLUBED (test code = GLUBED) 213 mg/dL 60-125 H [id number] 20:59:00* Test Item Value Reference Range Interpretation Comme nts glubed (test code = glubed) 213 mg/dL 60-125 H performing lab: (test code = performing lab:) [facility] 10:29:00* Test Item Value Reference Range Interpretation Comme nts GLUBED (test code = GLUBED) 122 mg/dL 60-125 N [id number] 10:17:00* Test Item Value Reference Range Interpretation Comme nts glubed (test code = glubed) 122 mg/dL 60-125 performing lab: (test code = performing lab:) [facility] METABOLIC [id number] 12:57:00* Test Item Value Reference Range Interpretation [...] 62.5 >60 Unit of m easure: mL/min/1.73 [id number] Range:Healthy Adults >90 mL/min/1.73 m2 For Chronic Kidney Disease: Stage II Mild Decrease in GFR 60-90 Stage III Moderate Decrease in GFR 30-59 Stage IV Severe Decrease in GFR 15-29 Stage V Kidney Failure <15 CREATININE (test code = CREAT) 0.92 mg/dL 0.55-1.30 N CALCIUM (test code = CA) 9.3 mg/dL 8.2-10.1 N URINALYSIS [id number] 12:48:00* Test Item Value Reference Range Interpretation [...] = BACU) FEW /HPF NONE CBC W/AUTO [id number] 12:35:00* Test Item Value Reference Range Interpretation [...] NRBC) 0 % 0-0 N basic metabolic [id number] 11:45:00* Test Item Value Reference Range Interpretation [...] performing lab: (test code = performing lab:) [facility] St[facility] [Presence] in Specimen by Organism specific [id number] 11:45:00* Test Item Value Reference Range Interpretation Comme [facility] (te st code = MRSA surveillance screen) see below performing lab: (test code = performing lab:) [facility] PCR surveillance [id number] 11:45:00 * Test Item Value Reference Range Interpretation Comme [facility] mssa PCR surveillance screen (test code = mssa PCR surveillance screen) see below performing lab: (test code = performing lab:) [facility] W Auto Differential panel - [id number] 11:45:00* Test Item Value Reference Range Interpretation [...] performing lab: (test code = performing lab:) [facility] [id number] 11:40:00* Test Item Value Reference Range Interpretation [...] performing lab: (test code = performing lab:) [facility]- MRI L-SPINE W/O [id number] 09:11:00 [facility] 1960 Sex: F Patient Name: KARLO NORRIS Unit No: [id number] EXAMS: CPT CODE: [id number] MRI L-SPINE W/O CONT 66732 TECHNIQUE: Multiplanar, multisequence MRI examination performed of the lumbar spine without intravenous contrast material. COMPARISON: MR dated 11/23/2014 FINDINGS: Five lumbar typevertebra are assumed. Alignment: Within normal limits Bone Lesion: A 5 mm hypointense lesion withinthe L2 vertebral body is noted to the right of midline extending to the inferior endplate, likely aSchmorl's node. Fracture: None present. Paraspinal Soft Tissues: [...] left L4 nerve. The extrusion is contiguous witha right paracentral disc extrusion described above. There [...] IMPRESSION: Postoperative lumbar spine with large disc extrusionsas described. [facility] NAME: KARLO NORRIS [address] [facility] PHYS: Howard Downs MD : 1960 AGE: 60 SEX: F [place] [address] LOC: Y.MRI PHONE #: [phone] EXAM DATE: 06/25/2021 STATUS: DEP CLI FAX #: [phone] RAD #: D/C DT PAGE 1 Signed Report (CONTINUED) Patient Name: KARLO NORRIS Unit No: [id number] EXAMS: CPT CODE: [id number] MRI L-SPINE W/O CONT 88737 (Continued) at 0911 Reported and signed by: Dallas Cortes M.D. CC: Melody Montes De Oca MD; Rafael Yao M.D. Technologist: RT Santana(R) Transcribed D/ (0911) RyanSLJ [facility] NAME: KARLO NORRISCHENS [address] [facility] PHYS: Howard Downs MD : 1960 AGE: 60 SEX: F [place] [address] LOC: Y.MRI PHONE #: [phone] EXAM DATE: 06/25/2021 STATUS: DEP CLI FAX #: [phone] RAD #: D/C DT PAGE 2 Signed Report Patient Name: KARLO NORRISS Unit No: [id number] EXAMS: CPT CODE: [id number] MRI L-SPINE W/O CONT 27918 (Continued) Orig Print D/T: S: 06/26/2021 (09) [facility] NAME: JR,SHERI [facility] [address] [facility] PHYS: Howard Downs MD : 1960 AGE: 60 SEX: F [place] [address] LOC: Y.MRI PHONE #: [phone] EXAM DATE: 06/25/2021 STATUS: DEP CLI FAX #: [phone] RAD #: D/C DT PAGE 3 Signed Report- MRI PELVIS W/O [id number] 13:37:00 [facility] 1960 Sex: F Patient Name: KARLO NORRIS Unit No: [id number] EXAMS: CPT CODE: [id number] MRI PELVIS W/O CONT 60492 TECHNIQUE: Multiplanar, multisequence MRI of the pelvis without contrast. COMPARISON: None available. FINDINGS: No acute fracture is visualized. Bone marrow signal is within normal limits. No significant hip joint effusion. Linear signal within the superior labrum is suspicious fora labral tear. Mild/moderate diffuse right hip cartilage degeneration is visualized. A high-grade gluteus medius tendon tear reaches full-thickness over a transverse dimension of 1.6 cm with tendon retraction of up to 4 cm. Moderate associated muscle atrophy is present. There is also a chronic avulsion of the right gluteus minimus with an adjacent corticated ossific fragment anteriorly measuring2.9 cm. A high-grade tear of the left [...] Oca MD Technologist: Val Jimenez(R) Transcribed D/ (0277) [facility]CH[facility]: KARLO NORRIS [address] [facility] PHYS: PATAN. - Melody Montes De Oca MD : 1960 AGE: 60SEX: F [place], [place] [address] LOC: Y.MRI PHONE #: [phone] EXAM DATE: 06/09/2021 STATUS: REG CLI FAX #: [phone] RAD #: D/C DT PAGE 1 Signed Report Patient Name: KARLO NORRIS Unit No: [id number] EXAMS: CPT CODE: [id number] MRI PELVIS W/O CONT 90256 (Continued)Orig Print D/T: S: 06/09/2021 (8337) [facility] NAME: KARLO NORRIS [address] PHYS: ROYCE. - Melody Montes De Oca MD : 1960 AGE: 60 SEX: F [place], [place] [address] LOC: Y.MRI PHONE #: [phone] EXAM DATE: 06/09/2021 STATUS: REG CLI FAX #: [phone] RAD #: D/C DT PAGE 2 Signed Report
[2024-02-01] MEDS ORDERED: KETOROLAC 30 MG/ML INJ ONE (12:14)
[2024-02-01] MEDS ORDERED: dexAMETHasone 10 MG/ML VIAL ONE (12:14)
[2024-02-01] MEDS ORDERED: DIAZEPAM 5 MG TABLET ONE (12:15)
[2024-02-01] MEDS ORDERED: HYDROCODONE/APAP 5/325 MG TAB ONE (12:15)
--- NOTE | 2024-02-01 13:25 | EDPHYS ---
Physician Documentation [facility] Name: Estefany Beard Age: 63 yrs Sex: Female : 1960 Arrival Date: 02/01/2024 Time: 10:31 Bed 13 Private MD: ED Physician Xavier Smith HPI: 01/31 11:21 This 63 yrs old Female presents to ER via Ambulatory with complaints of High Blood ms3 Pressure, Back Pain. 11:21 Estefany Beard, a 63-year-old female, presents to the Emergency Department with ms3 chronic back pain since . She has a history of a slipped disc, hypertension, and diabetes. Today, she reports severe nerve pain rated as 10 out of 10, radiating down her left leg. She has been waiting for an MRI ordered by her primary care physician. She has tried aspirin (300 mg), tizanidine, meloxicam, and half of a 10/325 mg hydrocodone tablet for pain management. She experiences some difficulty with bowel movements, described as straining, but does not report bowel or bladder incontinence. There is no numbness in the saddle area, and the pain remains localized to the left side. Previous imaging and evaluations by Dr. Najma Cook, a search engine optimization specialist at [facility], indicated issues at the lumbar spine, specifically L1 and L2.. Historical: - Allergies: 11:15 No Known Allergies; tm6 - PMHx: 11:15 Nerve damage; Hypertension; Diabetes - NIDDM; tm6 - PSHx: 11:15 back surgery; tm6 - Immunization history:: Flu vaccine is not up to date. - Infectious Disease History:: Denies. - Social history:: Smoking status: Patient denies any tobacco usage or history of. ROS: 11:21 Constitutional: Negative for fever, and chills. Neck: Negative for injury, pain, and ms3 swelling, Cardiovascular: Negative for chest pain, and palpitations. Respiratory: Negative for shortness of breath, cough, wheezing, and pleuritic chest pain, Abdomen/GI: Negative for abdominal pain, nausea, vomiting, diarrhea, and constipation, 11:21 MS/Extremity: Negative for injury and deformity, Skin: Negative for injury, rash, and discoloration, 11:21 MS/extremity: Positive for pain, Exam: 11:21 Constitutional: This is a well developed, well nourished patient who is awake, alert, ms3 and in no acute distress. Neck: Trachea midline, no cervical lymphadenopathy. Supple, full range of motion without nuchal rigidity, or vertebral point tenderness. No Meningismus. Chest/axilla: Normal chest wall appearance and motion. Nontender with no deformity. Cardiovascular: Regular rate and rhythm with a normal S1 and S2. No gallops, murmurs, or rubs. Normal PMI, no JVD. No pulse deficits. Respiratory: Lungs have equal breath sounds bilaterally, clear to auscultation and percussion. No rales, rhonchi or wheezes noted. No increased work of breathing, no retractions or nasal flaring. Abdomen/GI: Soft, non-tender, with normal bowel sounds. No distension or tympany. No guarding or rebound. No evidence of tenderness throughout. 11:21 Skin: Warm, dry with normal turgor. Normal color with no rashes, no lesions, and no evidence of cellulitis. 11:21 Back: pain, that is severe, of the left low back, normal spinal alignment noted, CVA tenderness, is absent, vertebral tenderness, is not appreciated, muscle spasm, is appreciated in the left low back, Vital Signs: 11:14 BP 128 / 54; Pulse 57; Resp 19; Temp 99.5(O); Pulse Ox 97% ; MAP 76 mmHg; Weight 81.65 tm6 kg; Height 5 ft. 1 in. ; Pain 10/10; 12:34 BP 169 / 58; Pulse 53; Resp 18; Pulse Ox 98% on R/A; ph 13:12 BP 176 / 70; Pulse 56; Resp 18; Pulse Ox 98% on R/A; ph 14:09 BP 183 / 82; Pulse 58; Resp 18; Temp 97.5; Pulse Ox 98% on R/A; ph 11:14 Body Mass Index 34.01 (81.65 kg, 154.94 cm) tm6 11:14 Pain Scale: Adult tm6 MDM: 10:53 Medical Screening Exam initiated ms3 11:21 Differential diagnosis: Sciatica vs DDD vs OA. ms3 18:28 Data reviewed: vital signs, nurses notes, and as a result, I will discharge patient. I ms3 considered the following discharge prescriptions or medication management in the emergency department Medications were administered in the Emergency Department. See MAR. Historians other than the Patient: Spouse/Significant Other: Patient's . Care significantly affected by the following chronic conditions: Diabetes, Hypertension. Counseling: I had a detailed discussion with the patient and/or guardian regarding the historical points, exam findings, and any diagnostic results supporting the discharge/admit diagnosis, the need for outpatient follow up, to return to the emergency department if symptoms worsen or persist or if there are any questions or concerns that arise at home. Special discussion: I discussed with the patient/guardian in detail that at this point there is no indication for admission to the hospital. It is understood, however, that if the symptoms persist or worsen the patient needs to return immediately for re-evaluation. ED course: On reevaluation patient symptoms improved, patient is alert and oriented x 4, no apparent distress, nontoxic-appearing, speaking full sentences, ambulatory Emergency Department. Patient without urinary or bladder incontinence or retention, or saddle anesthesia. Patient denies numbness or weakness. Patient to follow-up with her spinal surgeon in 2 to 3 days. Patient understands agrees with plan. All questions were answered. Return precautions discussed include worsening symptoms, or any other concerns. 19:04 ED course: PDMP reviewed. ms3 Administered Medications: 12:32 Drug: HYDROcodone-acetaminophen PO 5 mg-325 mg 1 tabs PO once Route: PO; ph 14:08 Follow up: Response: No adverse reaction; Pain is decreased; RASS: Alert and Calm (0) ph 12:32 Drug: Diazepam PO 5 mg PO once Route: PO; ph 14:08 Follow up: Response: No adverse reaction; Pain is decreased ph 12:32 Drug: Dexamethasone IM 10 mg IM once Route: IM; Site: right deltoid; ph 14:08 Follow up: Response: No adverse reaction; Pain is decreased ph 12:32 Drug: Ketorolac IM 30 mg IM once Route: IM; Site: left deltoid; ph 14:08 Follow up: Response: No adverse reaction; Pain is decreased ph 14:01 Drug: cloNIDine PO 0.1 mg PO once Route: PO; ph 14:08 Follow up: Response: No adverse reaction; Medication administered at discharge. ph Disposition Summary: 02/01/24 13:25 Discharge Ordered Notes: Location: Home ms3 Condition: Stable ms3 Diagnosis - Sciatica, left side ms3 Followup: ms3 - With: Private Physician - When: 2 - 3 days - Reason: Recheck today's complaints Discharge Instructions: - Discharge Summary Sheet ms3 - Sciatica ms3 Forms: - Medication Reconciliation Form ms3 - Antibiotic Education ms3 - Prescription Opioid Use ms3 - Patient Portal Instructions ms3 - Leadership Thank You Letter ms3 Prescriptions: - acetaminophen-codeine 300-30 mg Oral tablet - take 1 tablet ORAL route every 4 hours; 18 tablet; Refills: 0, Product ms3 Selection Permitted Signatures: Nicole Valentine, RN RN Xavier Smith, DO ms3 Margarita Blount RN RN tm6
--- NOTE | 2024-02-01 13:25 | ER ---
Nurse's Notes [facility] Name: Estefany Beard Age: 63 yrs Sex: Female : 1960 Arrival Date: 02/01/2024 Time: 10:31 Bed 13 Private MD: Diagnosis: Sciatica, left side Presentation: 01/31 11:14 Chief complaint: Patient states: twisted back day before Thanksgiving, hurting since tm6 then. Headache and high blood pressure today. Coronavirus screen: Client denies travel out of the [place] in the last 14 days. Ebola Screen: Patient negative for fever greater than or equal to 101.5 degrees Fahrenheit, and additional compatible Ebola Virus Disease symptoms Patient denies exposure to infectious person. Patient denies travel to an Ebola-affected area in the 21 days before illness onset. No symptoms or risks identified at this time. Initial Sepsis Screen: Does the patient meet any 2 criteria? No. Patient's initial sepsis screen is negative. Does the patient have a suspected source of infection? No. Patient's initial sepsis screen is negative. Risk Assessment: Do you want to hurt yourself or someone else? Patient reports no desire to harm self or others. Onset of symptoms was February 01, 2024. 11:14 Method Of Arrival: Ambulatory tm6 11:14 Acuity: JACE 3 tm6 Triage Assessment: 11:15 General: Appears in no apparent distress. Behavior is calm, cooperative. Pain: tm6 Complains of pain in back, head Pain currently is 10 out of 10 on a pain scale. Quality of pain is described as aching. EENT: No signs and/or symptoms were reported regarding the EENT system. Neuro: Level of Consciousness is awake, alert, obeys commands, Oriented to person, place, time, situation, Reports headache. Cardiovascular: Patient's skin is warm and dry. Respiratory: Airway is patent Respiratory effort is even, unlabored, Respiratory pattern is regular, symmetrical. GI: No signs and/or symptoms were reported involving the gastrointestinal system. Abdomen is flat, non-distended. : No signs and/or symptoms were reported regarding the genitourinary system. Derm: No signs and/or symptoms reported regarding the dermatologic system. Musculoskeletal: Circulation, motion, and sensation intact. Reports pain in back, head Pain is 10 out of 10 on a pain scale. Historical: - Allergies: 11:15 No Known Allergies; tm6 - PMHx: 11:15 Nerve damage; Hypertension; Diabetes - NIDDM; tm6 - PSHx: 11:15 back surgery; tm6 - Immunization history:: Flu vaccine is not up to date. - Infectious Disease History:: Denies. - Social history:: Smoking status: Patient denies any tobacco usage or history of. Screenin:32 [facility] ED Fall Risk Assessment (Adult) History of falling in the last 3 months, ph including since admission No falls in past 3 months (0 pts) Confusion or Disorientation No (0 pts) Intoxicated or Sedated No (0 pts) Impaired Gait No (0 pts) Mobility Assist Device Used No (0 pt) Altered Elimination No (0 pt) Score/Fall Risk Level 0 - 2 = Low Risk Oriented to surroundings, Maintained a safe environment, Hourly rounding (assess needs \T\ fall precautionary measures) done, Used ambulatory aids as needed (educated on \T\ assisted with). Abuse screen: Denies threats or abuse. Denies injuries from another. Nutritional screening: No deficits noted. Tuberculosis screening: No symptoms or risk factors identified. Assessment: 12:33 General: Appears in no apparent distress. uncomfortable, well groomed, Behavior is ph calm, cooperative. Pain: Complains of pain in left low back. Neuro: Level of Consciousness is awake, alert, obeys commands, Oriented to person, place, time, situation. Cardiovascular: Capillary refill < 3 seconds in bilateral fingers Patient's skin is warm and dry. Respiratory: Airway is patent Respiratory effort is even, unlabored. GI: No signs and/or symptoms were reported involving the gastrointestinal system. Derm: Skin is pink, warm \T\ dry. 13:50 Reassessment: BP elevated at 180s systolic, pt requesting medication for BP, ERP ph notified, see APR. Vital Signs: 11:14 BP 128 / 54; Pulse 57; Resp 19; Temp 99.5(O); Pulse Ox 97% ; MAP 76 mmHg; Weight 81.65 tm6 kg; Height 5 ft. 1 in. ; Pain 10/10; 12:34 BP 169 / 58; Pulse 53; Resp 18; Pulse Ox 98% on R/A; ph 13:12 BP 176 / 70; Pulse 56; Resp 18; Pulse Ox 98% on R/A; ph 14:09 BP 183 / 82; Pulse 58; Resp 18; Temp 97.5; Pulse Ox 98% on R/A; ph 11:14 Body Mass Index 34.01 (81.65 kg, 154.94 cm) tm6 11:14 Pain Scale: Adult tm6 ED Course: 10:34 Patient arrived in ED. sj2 10:38 Xavier Smith DO is Attending Physician. ms3 11:15 Triage completed. tm6 11:15 Arm band placed on left wrist. tm6 12:08 Nicole Valentine RN is Primary Nurse. ph 12:33 Patient has correct armband on for positive identification. Pulse ox on. NIBP on. Door ph closed. Noise minimized. Pillow given. 12:34 No provider procedures requiring assistance completed. Patient did not have IV access ph during this emergency room visit. Administered Medications: 12:32 Drug: HYDROcodone-acetaminophen PO 5 mg-325 mg 1 tabs PO once Route: PO; ph 14:08 Follow up: Response: No adverse reaction; Pain is decreased; RASS: Alert and Calm (0) ph 12:32 Drug: Diazepam PO 5 mg PO once Route: PO; ph 14:08 Follow up: Response: No adverse reaction; Pain is decreased ph 12:32 Drug: Dexamethasone IM 10 mg IM once Route: IM; Site: right deltoid; ph 14:08 Follow up: Response: No adverse reaction; Pain is decreased ph 12:32 Drug: Ketorolac IM 30 mg IM once Route: IM; Site: left deltoid; ph 14:08 Follow up: Response: No adverse reaction; Pain is decreased ph 14:01 Drug: cloNIDine PO 0.1 mg PO once Route: PO; ph 14:08 Follow up: Response: No adverse reaction; Medication administered at discharge. ph Medication: 12:33 VIS not applicable for this client. ph Outcome: 13:25 Discharge ordered by . ms3 14:12 Discharged to home via wheelchair, with significant other, ph 14:12 Condition: good 14:12 Discharge instructions given to patient, Instructed on discharge instructions, follow up and referral plans. medication usage, Demonstrated understanding of instructions, follow-up care, medications, Prescriptions given X 1, 14:13 Patient left the ED. ph Signatures: Nicole Valentine RN RN ph Xavier Smith DO DO ms3 Margarita Blount RN RN tm6 Marysol Alvarado sj2
[2024-02-01] MEDS ORDERED: cloNIDine HCL 0.1 MG TAB ONE (13:50)
[2024-02-01 14:39] VITALS: O2SAT 98
[2024-02-01 14:42] VITALS: BP 183/82; TEMP 97.5
== END 2024-02-01 14:13 | disposition home or self-care (01) ==
LOC: ER 10:31
DX: M54.32 Sciatica, left side (principal); I10 Essential (primary) hypertension
CPT/HCPCS: 96372; 99284; J1100

== ENCOUNTER 2024-02-08 06:35 | Emergency (ER) | payer OTHER ==
--- OUTSIDE RECORDS SUMMARY | 2024-02-08 06:39 | XMS REPORT | Continuity of Care Document ---
Author Name Unknown Address [address] [facility] [address] [place] [id number] [facility] Address [address] [facility]. [address] [place] [address] Care Team Providers Care Director Radio News Name Role Phone Howard Yao Attending Clinician Unavailab le GC_GCBZW_Kadiyala_S Attending Clinician Unavaila ble MELISSA_Boni_Tico_ Attending Clinician Unavail able Howard Yao Attending Clinician [phone] Melody Montes De Oca Attending Clinician Unavailable Howard Yao Admitting Clinician Unavailab le GC_GCBZW_Kadiyala_S Admitting Clinician Unavaila cari TORRES_Sherice Admitting Clinician Unavail able Melody Montes De Oca Admitting Clinician Unavailable Payers Payer Name Policy Type Policy Number Effective Date Expirati on Date Source [employer] - CHOICE (POS II) [id number] 2015 00:00:00 [employer] (POS) [id number] 2002 00:00:00 Problems Condition Name Condition Details [...] s DA Active U 07-02 00:00: 00 [facility] latex DA Active MA RASH 07-02 00:00: 00 [facility] No Known Drug Allergie s DA Active U 06-11 00:00: 00 [facility] latex DA Active MA RASH 06-11 00:00: 00 [facility] Social History [...] 1 [facility] diclofenac sodium 50 mg tablet,earl yed release [...] 1,000 mg) chewable tablet RX by other No Calcium Antacid 400 mg (as carbonate 1,000 mg) chewable tablet RX by other MD [facility] cephalexin 500 [...] DAYS [facility] hydrocodone [...] tablet [facility] calcium calcium No calcium [facility] meloxicam 15 mg tablet TAKE ONE PO [...] TAKE 1 TABLET BY MOUTH EVERY DAY [facility] tizanidine 4 mg tablet TAKE 1 TABLET BY MOUTH THREE TIMES A DAY tizanidine 4 mg tablet TAKE 1 TABLET BY MOUTH THREE TIMES A DAY No tizanidine 4 mg tablet TAKE 1 TABLET BY MOUTH THREE TIMES A DAY [facility] zinc zinc No zinc [facility] Immunizations Ordered Immunization Name Filled Immunization Name Date Status Comments Source influenza, injectable, quadrivalent, preservative free influenza, injectable, quadrivalent, preservative free Unknown Completed [facility] Vital Signs Vital Name Observation Time Observation Value Comments S ource Height 2024-01-24 00:00:00 61 [in_i] [facility] Body Weight 2024-01-24 00:00:00 181 [lb_av] [facility] BMI (Body Mass Index) 2024-01-24 00:00:00 34.2 kg/m2 [facility] Body Weight 2023-12-22 [...] (Body Mass Index) 2021-08-01 00:00:00 35 kg/m2 [facility] Body Weight 2021-08-01 00:00:00 185 [lb_av] [facility] Procedures Procedure Date / Time Performed Performing Clinician Source RADEX SPI LUMBOSAC 2/3 VIEWS 2024-01-24 00:00:00 [facility] MRI, lumbar spine, w/o contrast 2024-01-24 00:00:00 [facility] US, breast, unilateral 2023-12-22 00:00:00 [facility] MAMMO, diagnostic, digital, unilateral 2023-12-22 00:00:00 [facility] RADEX SPI LUMBOSAC 2/3 VIEWS 2021-06-25 00:00:00 [facility] MRI, lumbar spine, w/o contrast 2021-06-25 00:00:00 [facility] Mammography 2020-06-15 00:00:00 [facility] Lumbar Microdiscectomy 2020-02-16 00:00:00 [facility] Colonoscopy 2019-02-15 00:00:00 [facility] Orthopedic - Knee Replacement [facility] Medical Operative Procedure on Knee [facility] Medical Procedure on Ankle Privtn Me dical Laminectomy [facility] Medical Section [facility] Medi varun Encounters Start Date/Time End Date/Time Encounter Type Admission Type Attending Clinicians Care Facility Care Department Encounter ID Source 2024-02-08 07:30:00 Inpatient Howard Whittaker HCATO RADI [id number] [facility] 2021-07-03 11:19:00 Inpatient Howard Whittaker HCATO HCATO [id number] [facility] 2024-01-24 00:00:00 2024-01-24 00:00:00 FABIENNE Yao: [address] [place] [address] , Ph. [phone] [place] [id number] [facility] 2023-12-22 00:00:00 2023-12-22 00:00:00 FABIENNE Mcnamara: [address], [place] [address] , Ph. [facility] - GC_GCBZW_Kenia [facility]* [id number] [facility] 2022-11-25 00:00:00 2022-11-25 00:00:00 Outpatient GC_GCBZW_Ka diyala_S [facility] [id number] [facility] 2022-11-24 00:00:00 2022-11-24 00:00:00 Outpatient GC_GCBZW_Ka diyala_S [facility] [id number] [facility] 2021-08-01 11:15:00 2021-08-01 11:15:00 Outpatient FOG_Mathews _Vasil_MD AOSM AO [id number] [facility] 2021-08-01 00:00:00 2021-08-01 00:00:00 Outpatient Howard Yao AOSM AO [id number] 2021-08-01 00:00:00 2021-08-01 00:00:00 Howard Yao MD: [address] [place] [phone] , Ph. [phone] [facility] [place] [facility] [id number] [facility] 2021-07-21 02:15:00 2021-07-21 02:15:00 Outpatient FOG_Mathews _Vasil_MD AOSM AO [id number] [facility] 2021-07-18 11:52:00 2021-07-18 11:52:00 Outpatient FOG_Mathews _Vasil_MD AOSM AO [id number] [facility] 2021-07-16 02:14:00 2021-07-16 02:14:00 Outpatient FOG_Mathews _Vasil_MD AOSM AO [id number] [facility] 2021-07-10 08:31:00 2021-07-11 14:01:00 Outpatient Howard Whittaker OBSE [id number] [facility] [place] [facility] 2021-07-10 08:31:00 2021-07-11 14:01:00 Outpatient Howard Whittaker OBSE [id number] [facility] [place] [facility] 2021-07-10 00:00:00 2021-07-10 00:00:00 Howard Yao MD: [address] [place] [address] , Ph. [phone] [place] [facility] F[facility]_Sur[facility] [id number] [facility] 2021-07-10 00:00:00 2021-07-10 00:00:00 Outpatient Howard Yao [facility] [id number] 2021-07-02 15:39:00 2021-07-02 15:39:00 Outpatient Howard Yao HCACL LABO [id number] [facility] 2021-07-02 00:00:00 2021-07-02 00:00:00 Howard Yao MD: [address] [place] [address] , Ph. [phone] [place] [facility] [id number] [facility] 2021-06-25 15:52:00 2021-06-25 15:52:00 Outpatient Howard Whittaker HCATO RADI [id number] [facility] [place] [facility] 2021-06-25 00:00:00 2021-06-25 00:00:00 Howard Yao MD: [address] [place], [place] [address] , Ph. [phone] [facility] [place] [facility] [id number] [facility] 2021-06-09 07:26:00 2021-06-09 07:26:00 Outpatient Melody Goldstein HCATO RADI [id number] [facility] [place] [facility] Results Test Description Test Time Test Comments Results Resul t Comments Source - XR SPINE 1 V SPEC LEVEL 2021-07-11 07:33:00 [facility] : 1960 Sex: F Patient Name: KARLO NORRIS Unit No: [id number] EXAMS: CPT CODE: [id number] XR SPINE 1 V SPEC LEVEL 82473 INTRAOPERATIVE LATERAL LUMBAR SPINE Film 1. A marker is posterior to L2. Film 2. Surgical instruments are posterior to L3 and L4. Film 3. A surgical instrument is posterior to L3. at 0733 Reported and signed by: Turner Stoner MD CC: Rafael Yao M.D. Technologist: FRANKI ROMERO (RT.R) Transcribed D/ (0733) [facility] NAME: KARLO NORRIS[address] PHYS: Howard Downs MD : 1960 AGE: 60 SEX: F [place] [address] LOC: Y.318 A PHONE #: [phone] EXAM DATE: 07/10/2021 STATUS: [place] [facility] [place] #: [phone] RAD #: D/C DT PAGE 1 Signed Report Patient Name: KARLO NORRIS Unit No: [id number] EXAMS: CPT CODE: [id number] XR SPINE 1 V SPEC LEVEL 48530 (Continued) Orig Print D/T: S: 07/11/2021 (0736) [facility] NAME: KARLO NORRIS[address] PHYS: Howard Downs MD : 1960 AGE: 60 SEX: F [place], [place] [address] LOC: Y.318 A PHONE #: [phone] EXAM DATE: 07/10/2021 STATUS: [place] [facility] [place] #: [phone] RAD #: D/C DT PAGE 2 Signed Report [id number] 06:04:00* Test Item Value Reference Range Interpretation Comme nts GLUBED (test code = GLUBED) 161 mg/dL 60-125 H [id number] 05:17:00* Test Item Value Reference Range Interpretation Comme nts glubed (test code = glubed) 161 mg/dL 60-125 H performing lab: (test code = performing lab:) [facility] [id number] 03:35:00* Test Item Value Reference Range Interpretation [...] performing lab: (test code = performing lab:) [facility]2022-[facility]-26 21:14:00* Test Item Value Reference Range Interpretation Comme nts GLUBED (test code = GLUBED) 213 mg/dL 60-125 H [id number] 20:59:00* Test Item Value Reference Range Interpretation Comme nts glubed (test code = glubed) 213 mg/dL 60-125 H performing lab: (test code = performing lab:) [facility]22-[facility] 10:29:00* Test Item Value Reference Range Interpretation Comme nts GLUBED (test code = GLUBED) 122 mg/dL 60-125 N [id number] 10:17:00* Test Item Value Reference Range Interpretation Comme nts glubed (test code = glubed) 122 mg/dL 60-125 performing lab: (test code = performing lab:) [facility] METABOLIC [id number] 12:57:00* Test Item Value Reference Range Interpretation [...] 62.5 >60 Unit of m easure: mL/min/1.73 [id number] Range:Healthy Adults >90 mL/min/1.73 m2 For Chronic Kidney Disease: Stage II Mild Decrease in GFR 60-90 Stage III Moderate Decrease in GFR 30-59 Stage IV Severe Decrease in GFR 15-29 Stage V Kidney Failure <15 CREATININE (test code = CREAT) 0.92 mg/dL 0.55-1.30 N CALCIUM (test code = CA) 9.3 mg/dL 8.2-10.1 N URINALYSIS [id number] 12:48:00* Test Item Value Reference Range Interpretation [...] = BACU) FEW /HPF NONE CBC W/AUTO [id number] 12:35:00* Test Item Value Reference Range Interpretation [...] NRBC) 0 % 0-0 N basic metabolic [id number] 11:45:00* Test Item Value Reference Range Interpretation [...] performing lab: (test code = performing lab:) [facility] CenterMeth[facility] resistant Staphylococcus aureus [Presence] in Specimen by Organism specific [id number] 11:45:00* Test Item Value Reference Range Interpretation Comme nts MRSA surveillance screen (te st code = MRSA surveillance screen) see below performing lab: (test code = performing lab:) [facility] PCR surveillance [id number] 11:45:00 * Test Item Value Reference Range Interpretation Comme [facility] mssa PCR surveillance screen (test code = mssa PCR surveillance screen) see below performing lab: (test code = performing lab:) [facility] CenterCBC W Auto Differential panel - [id number] 11:45:00* Test Item Value Reference Range Interpretation [...] performing lab: (test code = performing lab:) [facility] Medicineurinalysis [id number] 11:40:00* Test Item Value Reference Range Interpretation [...] performing lab: (test code = performing lab:) [facility]- MRI L-SPINE W/O [id number] 09:11:00 [facility] : 1960 Sex: F Patient Name: KARLO NORRIS Unit No: [id number] EXAMS: CPT CODE: [id number] MRI L-SPINE W/O CONT 87984 TECHNIQUE: Multiplanar, multisequence MRI examination performed of [...] spine with large disc extrusions as described. [facility] NAME: KARLO NORRIS [address] [facility] PHYS: Howard Downs MD : 1960 AGE: 60 SEX: F [place] [address] LOC: Y.MRI PHONE #: [phone] EXAM DATE: 06/25/2021 STATUS: DEP CLI FAX #: [phone] RAD #: D/C DT PAGE 1 Signed Report (CONTINUED) Patient Name: KARLO NORRIS Unit No: [id number] EXAMS: CPT CODE: [id number] MRI L-SPINE W/O CONT 48897 (Continued) at 0911 Reported and signed by: Dallas Cortes M.D. CC: Melody Montes De Oca MD; Rafael Yao M.D. Technologist: Trinidad Prieto, RT(R) Transcribed D/ (09) [facility] NAME: KARLO NORRIS [address] [facility] PHYS: Howard Rocha MD : 1960 AGE: 60 SEX: F [place], [place] [address] LOC: Y.MRI PHONE #: [phone] EXAM DATE: 06/25/2021 STATUS: DEP CLI FAX #: [phone] RAD #: D/C DT PAGE 2 Signed Report Patient Name: KARLO NORRIS Unit No: [id number] EXAMS: CPT CODE: [id number] MRI L-SPINE W/O CONT 05638 (Continued) Orig Print D/T: S: 06/26/2021 (09) [facility] NAME: KARLO NORRIS [address] [facility] PHYS: Howard Downs MD : 1960 AGE: 60 SEX: F [place], [place] [address] LOC: Y.MRI PHONE #: [phone] EXAM DATE: 06/25/2021 STATUS: DEP CLI FAX #: [phone] RAD #: D/C DT PAGE 3 Signed Report- MRI PELVIS W/O [id number] 13:37:00 [facility] 1960 Sex: F Patient Name: KARLO NORRIS Unit No: [id number] EXAMS: CPT CODE: [id number] MRI PELVIS W/O CONT 58662 TECHNIQUE: Multiplanar, multisequence MRI of the pelvis [...] 3. High-grade tearing of the right gluteus mediusand minimus tendons as described. at 1337 Reported and signed by: Dallas Cortes M.D. CC: Melody Montes De Oca MD Technologist: Val Jimenez(R) Transcribed D/ (0110) tROBEL.[facility] [place] [facility] NAME: KARLO NORRIS [address] [facility] PHYS: PATAN. Melody Montes De Oca MD : 1960 AGE: 60 SEX: F [place], [place] [address] LOC: Y.MRI PHONE #: [phone] EXAM DATE: 06/09/2021 STATUS: REG CLI FAX #: [phone] RAD #: D/C DT PAGE 1 Signed Report Patient Name: KARLO NORRIS Unit No: [id number] EXAMS: CPT CODE: [id number] MRI PELVIS W/O CONT 93260 (Continued) Orig Print D/T: S: 06/09/2021 (1340) [facility] NAME: KARLO NORRIS [address] [facility] [address] PHYS: PATAN.06 - Melody Montes De Oca MD : 1960 AGE: 60 SEX: F [place], [place] [address] LOC: Y.MRI PHONE #: [phone] EXAM DATE: 06/09/2021 STATUS: REG CLI FAX #: [phone] RAD #: D/C DT PAGE 2 Signed Report
[2024-02-08] MEDS ORDERED: KETAMINE HCL IN 0.9 % NACL 50 MG/5 ML SYRINGE IV ONE (07:30)
[2024-02-08 07:48] LABS: Absolute Eosinophils 0.3 K/uL (0-0.5); Absolute Lymphocytes (CBC) 2.9 K/uL (0.7-4.9); Absolute Monocytes 0.6 K/uL (0.1-1.3); Absolute Neutrophil 5.8 K/uL (1.8-8.0); Basophils % 0.5 % (0-1.3); Eosinophils % 3.2 % (0-4.4); Hematocrit 37.9 % (36.0-45.0); Hemoglobin 12.7 g/dL (12.0-15.0); Lymphocytes % 29.7 % (15.3-44.8); MCH 29.6 pg (27.0-35.0); MCHC 33.5 g/dL (32.0-36.0); MCV 88.2 fL (80-100); MPV 7.8 fL (7.6-11.3); Monocytes % 6.6 % (3.3-12.3); Nucleated Red Blood Cells % 0.1 % (0-0); Platelets 334 thou/uL (152-406); Red Cell Distribution Width 14.1 % (12.1-15.2)
--- NOTE | 2024-02-08 07:50 | RAD REPORT ---
EXAM: CT brain without contrast HISTORY: GLF, occipital injury, loc COMPARISON: None TECHNIQUE: Multiple contiguous axial images were obtained and a CT of the brain without contrast. Sag ittal and coronal reformats were performed. One or more of the following dose reduction techniques were used: Automated exposure control, adjust ment of the mA and/or kV according to patient size, and/or iterative reconstruction. FINDINGS: There is a subtle area of increased density seen in the medial left frontal region adjacent to the fa lx (image 24/33). This may represent a small area of shear injury. Mild brain atrophy with mild periventricular and deep white matter chronic microvascular ischemic changes present. No evidence of midline shift or areas of brain edema. The calvarium is intact. The visualized paranasal sinuses and mastoid air cells are essentially clear . IMPRESSION: Subtle area of increased density in the medial left frontal lobe adjacent to the falx suspected to re present an area of shearing injury.
--- NOTE | 2024-02-08 07:55 | RAD REPORT ---
EXAMINATION: CT LUMBAR SPINE WITHOUT CONTRAST CLINICAL INDICATION: Female, 63 years old. low back pain, fall TECHNIQUE: Axial CT images were obtained through the lumbar spine in soft tissue and bone windows wit hout intravenous contrast. Coronal and Sagittal reformatted images were created from the data set. One or more of the following dose reduction techniques were used: Automated exposure control, adjustm ent of the mA and/ or kV according to patient size, and/or iterative reconstruction. Unless otherwise specified, incidental findings do not require dedicated imaging follow-up. COMPARISON: 07/17/2021 FINDINGS: For purposes of this dictation, it is assumed that there are 5 non rib-bearing lumbar type vertebrae, and the most caudal fully segmented lumbar vertebra is labeled L5. ALIGNMENT: The lumbar spine demonstrates normal alignment without scoliosis or spondylolisthesis. BONES: No significant soft tissue abnormalities. No aggressive osseous lesions. DISCS: Laminectomy changes are noted at L3. LEVELS: Prominent posterior calcified disc protrusion is present at L2-3 and L3-4. SOFT TISSUE: Stable 3 cm left adrenal mass. IMPRESSION: No acute lumbar spine abnormalities. Moderate multilevel lower lumbar degenerative changes are present with laminectomy defect at L3.
--- NOTE | 2024-02-08 08:07 | EDPHYS ---
Physician Documentation [facility] Name: Estefany Beard Age: 63 yrs Sex: Female : 1960 Arrival Date: 02/08/2024 Time: 06:35 Bed 19 Private MD: ED Physician Ezio Palafox HPI: 02/07 07:13 This 63 yrs old Female presents to ER via EMS with complaints of Fall Injury, Head ec2 Injury With LOC-Adult. 07:13 Patient arrives today for evaluation of a ground-level fall. Reports she was walking, ec2 has had chronic back pain which exacerbated and subsequently fell down. Patient reports LOC. Patient reports low back pain that is worsened. Denies any red flag symptoms. Reports that she is supposed to an MRI today with her orthopedic surgeon today.. Historical: - Allergies: 07:15 No Known Allergies; mt4 - PMHx: 07:15 Diabetes - NIDDM; Nerve damage; Hypertension; mt4 ROS: 07:14 Constitutional: as per hpi ec2 Exam: 07:14 Constitutional: GEN: NAD Head: atraumatic Eyes: EOMI Ears: External ears are ec2 normal. CV: regular rate LUNGS: no respiratory distress ABD: non-distended SKIN: no evidence of rashes , Occipital laceration appreciated MSK: no evidence of trauma, no C/T/L spine deformities, no crepitus, no step-offs appreciated. Vital Signs: 07:15 BP 119 / 59; Pulse 63; Resp 20; Temp 98.2; Pulse Ox 97% on R/A; Weight 81.65 kg (R); mt4 Height 5 ft. 1 in. ; Pain 10/10; 07:15 Body Mass Index 34.01 (81.65 kg, 154.94 cm) mt4 07:15 Pain Scale: Adult mt4 Isabel Coma Score: 07:15 Eye Response: spontaneous(4). Motor Response: obeys commands(6). Verbal Response: mt4 oriented(5). Total: 15. Trauma Score (Adult): 07:15 Eye Response: spontaneous(1); Verbal Response: oriented(1); Motor Response: obeys mt4 commands(2); Systolic BP: > 89 mm Hg(4); Respiratory Rate: 10 to 29 per min(4); [place] Score: 15; Trauma Score: 12 MDM: 07:07 Medical Screening Exam initiated ec2 07:14 Data reviewed: vital signs, nurses notes. ED course: Patient arrives today for low back ec2 pain and LOC. Examination revealing for MSK and skin findings as above. Will obtain CT scan of the head and L-spine to evaluate for bony pathology as well as intracranial brain bleed, will give the patient ketamine for pain control.. 08:02 ED course: CT scan of the head shows small increased density in the left frontal lobe ec2 area along the falx possible shearing injury, given concern for possible small brain bleed, will transfer to neurosurgical capable facility.. 08:25 ED course: Lab work is unrevealing, does have some CKD noted, discussed the case with [facility] [place] accept the patient for transfer. Patient updated on plan of care and agreeable.. 02/07 07:13 Order name: CBC with Diff; Complete Time: 07:59 ec2 02/07 07:13 Order name: BMP; Complete Time: 08:23 ec2 02/07 08:07 Order name: PT-INR; Complete Time: 09:02 ec2 02/07 08:07 Order name: Ptt, Activated; Complete Time: 09:02 ec2 02/07 07:13 Order name: CT Head Brain wo Cont; Complete Time: 07:59 ec2 02/07 07:13 Order name: CT Lumbar Spine Wo Con; Complete Time: 07:59 ec2 02/07 07:56 Order name: Labs - recollect needed: recollect chemistries / hemolyzed per lab; eb Complete Time: 08:01 Administered Medications: 07:40 Drug: Ketamine IVP 10 mg IVP once Route: IVP; Site: right antecubital; hb 09:05 Drug: fentaNYL (PF) IVP 25 mcg IVP once Route: IVP; Site: right antecubital; hb Disposition Summary: 02/08/24 08:06 Transfer Ordered Notes: Transfer Location: Other Acute Care Facility ec2 Reason: Higher level of care ec2 Condition: Stable ec2 Problem: new ec2 Symptoms: are unchanged ec2 Accepting Physician: transferring doc(02/08/24 09:17) hb Diagnosis - Frontal Lobe Hemorrhage ec2 Forms: - Medication Reconciliation Form ec2 - SBAR form ec2 Critical care time excluding procedures: 08:25 Critical care time: Bedside Care: 30 minutes, Consultation: 5 minutes. Total time: 35 ec2 minutes Signatures: Dispatcher [employer] EDDenice Santacruz, RN RN Chrystal Santana Edwin, MD MD ec2 [facility] RN RN mt4 Corrections: (The following items were deleted from the chart) 07:13 07:13 Head Brain Wo Cont+CT.RAD.BRZ ordered. EDMS EDMS 07:13 07:13 Spine Lumbar Wo Con+CT.RAD.BRZ ordered. EDMS EDMS 07:13 07:13 CBC+H.LAB.BRZ ordered. EDMS EDMS 07:13 07:13 BASIC METABOLIC PANEL+C.LAB.BRZ ordered. EDMS EDMS 07:14 07:14 Constitutional: GEN: NAD Head: atraumatic Eyes: EOMI Ears: External ears are ec2 normal. CV: regular rate LUNGS: no respiratory distress ABD: non-distended SKIN: no evidence of rashes MSK: no evidence of trauma, no C/T/L spine deformities, no crepitus, no step-offs appreciated. ec2 08:07 08:07 PROTIME (+INR)+COAG.LAB.BRZ ordered. EDMS EDMS 08:07 08:07 PTT, ACTIVATED+COAG.LAB.BRZ ordered. EDMS EDMS 09:17 08:06 transferring doc ec2
--- NOTE | 2024-02-08 08:07 | ER ---
Nurse's Notes [facility] Name: Estefany Beard Age: 63 yrs Sex: Female : 1960 Arrival Date: 02/08/2024 Time: 06:35 Bed 19 Private MD: Diagnosis: Frontal Lobe Hemorrhage Presentation: 02/07 06:55 Chief complaint: Patient states: Patient states collapse while ambulating with walker mt4 at bedside, positive loss of consciousness, sustained laceration to back of head, complains of severe back pain. Patient has extensive chronic back pain issues, and was getting ready to see her orthopedic/spine surgeon today. States pain is 10+, EMS gave a dose of toradol en route. Patient states had taken tylenol, meloxicam, and tizanidine prior to fall. at bedside. Care prior to arrival: Medication(s) given: Toradol. Mechanism of Injury: Fall from standing position. Trauma event details: Injury occurred in the [facility]. Activity prior to arrival: None. 06:55 Acuity: JACE 3 mt4 06:55 Acuity: JACE 3 mt4 06:55 Method Of Arrival: EMS: [facility] mt4 Trauma Activation: Not Applicable Physician: ED Physician; Name: ; Notified At: ; Arrived At: Physician: General Surgeon; Name: ; Notified At: ; Arrived At: Physician: Radiology; Name: ; Notified At: ; Arrived At: Physician: Respiratory; Name: ; Notified At: ; Arrived At: Physician: Lab; Name: ; Notified At: ; Arrived At: Historical: - Allergies: 07:15 No Known Allergies; mt4 - PMHx: 07:15 Diabetes - NIDDM; Nerve damage; Hypertension; mt4 Screenin:15 Abuse screen: Denies threats or abuse. Tuberculosis screening: No symptoms or risk mt4 factors identified. Fall risk At risk due to prior history of falls. Exposure risk/Travel Screening: None identified. Primary Survey: 07:15 NO uncontrolled hemorrhage observed. A: The client is awake and alert. The airway is mt4 patent. Breathing/Chest: Spontaneous respiratory effort, equal unlabored respirations, breath sounds clear bilaterally, regular pattern, symmetrical chest rise and fall. Respiratory effort: spontaneous, Respiratory pattern: regular, Chest inspection: symmetrical rise and fall of the chest. Circulation: No external hemorrhage present. Regular and strong central pulse, skin warm/dry/normal color. Disability Client is alert. Exposure/Environment: A warming method has been applied: A warm blanket has been provided to the patient. Reassessment. Assessment: 06:55 General: Appears in no apparent distress. uncomfortable, Behavior is anxious, fussy, mt4 restless. Pain: Complains of pain in back Pain does not radiate. Pain currently is 10 out of 10 on a pain scale. Quality of pain is described as aching, sharp, stabbing, Pain began suddenly, Is continuous, Aggravated by repositioning. Neuro: Level of Consciousness is awake, alert, obeys commands, Oriented to person, place, time, situation, Speech is normal, Facial symmetry appears normal. Cardiovascular: Capillary refill < 3 seconds. 07:07 Respiratory: Airway is patent Respiratory effort is even, unlabored, Respiratory mt4 pattern is tachypnea. GI: Abdomen is non-distended. : Denies burning with urination. 07:12 Derm: Skin laceration to the back of head s/p fall Skin is dry, Skin is pink, warm \T\ mt4 dry. Wound noted scalp Wound is laceration to back of head s/p fall. Musculoskeletal: Range of motion: intact in all extremities. Injury Description: Laceration sustained to scalp is superficial. Vital Signs: 07:15 BP 119 / 59; Pulse 63; Resp 20; Temp 98.2; Pulse Ox 97% on R/A; Weight 81.65 kg (R); mt4 Height 5 ft. 1 in. ; Pain 10/10; 07:15 Body Mass Index 34.01 (81.65 kg, 154.94 cm) mt4 07:15 Pain Scale: Adult mt4 Hatfield Coma Score: 07:15 Eye Response: spontaneous(4). Motor Response: obeys commands(6). Verbal Response: mt4 oriented(5). Total: 15. Trauma Score (Adult): 07:15 Eye Response: spontaneous(1); Verbal Response: oriented(1); Motor Response: obeys mt4 commands(2); Systolic BP: > 89 mm Hg(4); Respiratory Rate: 10 to 29 per min(4); Hatfield Score: 15; Trauma Score: 12 ED Course: 06:46 Patient arrived in ED. [id number] 06:55 Maribel Reynaga, RN is Primary Nurse. mt4 07:02 Triage completed. mt4 07:07 Ezio Palafox MD is Attending Physician. ec2 07:15 Patient has correct armband on for positive identification. Bed in low position. Call mt4 light in reach. Side rails up X 1. Adult w/ patient. Patient maintains SpO2 saturation greater than 95% on room air. Client placed on continuous cardiac and pulse oximetry monitoring. NIBP monitoring applied. 07:15 Patient maintains SpO2 saturation greater than 95% on room air. Thermoregulation: warm mt4 blanket given to patient. 07:28 CT Head Brain wo Cont In Process Unspecified. EDMS 07:30 CT Lumbar Spine Wo Con In Process Unspecified. EDMS 08:01 Lab(s) recollected, by me, sent to lab. em1 08:12 Ptt, Activated Sent. hb 08:12 PT-INR Sent. hb 08:16 initiated a transfer with Keisha from the [facility]. eb 08:24 connected the neurosurgeon infection control practitioner for [facility] with Dr. Palafox for patient eb transfer consultation. 08:25 administrative approval given by Tonya Stover Rn, patient has been accepted to [facility] ED, Dr. Karel Moran has accepted the patient in transfer, report to be called to [phone]. Administered Medications: 07:40 Drug: Ketamine IVP 10 mg IVP once Route: IVP; Site: right antecubital; hb 09:05 Drug: fentaNYL (PF) IVP 25 mcg IVP once Route: IVP; Site: right antecubital; hb Outcome: 08:06 ER care complete, transfer ordered by . ec2 09:17 Patient left the ED. hb Signatures: Dispatcher [employer] Rigoberto Benedict em1 Denice Rose, RN RN Chrystal Santana Jessica Humphrey [id number] Ezio Palafox MD MD ec2 Maribel Reynaga, RN RN mt4
[2024-02-08 08:22] LABS: Anion Gap 12.6 mEq/L (5.0-15.0); Potassium 4.6 mEq/L (3.5-5.1)
[2024-02-08 08:24] LABS: PT Prothrombin Time 10.6 SECONDS (9.4-12.5); PTT, Activated Partial Thromb 25.9 SECONDS (24.3-36.9); Protime INR 0.94
[2024-02-08] MEDS ORDERED: FENTANYL CITR 100 MCG/2 ML ONE (09:03)
[2024-02-08 09:43] VITALS: BP 119/59; TEMP 98.2; O2SAT 97
== END 2024-02-08 09:17 ==
LOC: ER 06:35
DX: I61.1 Nontraumatic intracerebral hemorrhage in hemisphere, cortical (principal); W19.XXXA Unspecified fall, initial encounter; Y92.89 Other specified places as the place of occurrence of the external cause; I10 Essential (primary) hypertension; E11.9 Type 2 diabetes mellitus without complications
CPT/HCPCS: 85025; 80048; 36415; 85610; 85730; 72131; 70450; 96375; 96374; 99284; J3010